=== PATIENT | male | born 1975 | race Two or more races ===

== ENCOUNTER 2023-06-10 04:34 | Emergency (ER) | payer MEDICAID, SELFPAY | END 2023-06-10 05:11 | disposition left against medical advice (07) | PROVIDERS: Emergency Provider Emergency Medicine | DX: M54.9 Dorsalgia, unspecified (principal) ==

== ENCOUNTER 2025-07-15 06:25 | Emergency (ER) | payer MEDICAID, SELFPAY ==
--- OUTSIDE RECORDS SUMMARY | 2019-09-22 22:46 | XMS_ITS | Continuity of Care Document ---
Author Organization [facility] Address [address] [place] [address] Phone Care Team Providers Care Welder Assistant Name Role Phone Nursing, Nursing Unavailable Unavailable [...] by oral route every week on Monday 68198 UNITS - Active Seroquel 50 mg tablet [...] needed as needed 50 MG - Active WAKU WAKU ?Touch Delica Lancets 33 gauge to check blood glucose levels twice daily E11. - Active Humulin R Regular U-100 Insulin 100 unit/mL injection solution inject (0.05UNITS/KG) by SQ route once per prescriber's instructions. Follow sliding scale. Max dose 45 units per day - Active give insulin if BS >200. 201-250-5 units, 251-300-8 units, 301-350 units-12 units, 110-418-29anr ts, 074-623-56jav ts, 596-862-30kqy ts..Call MD if BS <60 or >500 [...] Location Reason(s) For Visit Diagnoses Date Provider [facility], [address] [facility], [place], [address], [place] tel:[phone] [facility] No Information 9 Nursing Nursing. [address] [facility], [id number] [place], [place], [facility], . tel:[phone] [facility], [address] [place] [address], [facility], tel:[phone] [place] [address] Pediatric And Family No Information 9 Lars Riveraet. [address] [place] [address], [facility], . tel:[phone] [facility], [address] [place] [address], [facility], tel:[phone] [place] [address] Based medication refill (chief complaint) Encounter for screening for diabetes mellitusEssential (primary) hypertensionType 2 diabetes mellitus with hyperglycemiaBody mass index (BMI) 35.0-35.9, adult 9 Lars Riveraet. [address] [place] [address], [facility], . tel:[phone] [facility], [address] [place] [address], [facility], tel:[phone] [place] [address] Based medication refill (chief complaint) Encounter for screening for diabetes mellitusVitamin D deficiency, unspecifiedType 2 diabetes mellitus with hyperglycemiaChronic ischemic heart disease, unspecifiedPain in kneeBody mass index (BMI) 37.0-37.9, adult Jan- 9 Lars Riveraet. [address] [place] [address], [facility], [place]. tel:[phone] [facility], [address] [place] [address], [facility], [place] tel:[phone] [place] [address] Based SED (chief complaint) Other asthmaAnxiety disorder, unspecifiedVitamin D deficiency, unspecifiedType 2 diabetes mellitus with hyperglycemiaHearing lossBody mass index (BMI) 35.0-35.9, adult 8 Lars Riveraet. [address] [place] [address], [facility], [place]. tel:[phone] [facility], [address] [place] [address], [facility], [place] tel:[phone] [place] [address] multiple complaints (chief complaint) Encounter for screening for diabetes mellitusChronic ischemic heart disease, unspecifiedMajor depressive disorder, recurrent, unspecifiedType 2 diabetes mellitus with hyperglycemiaBody mass index (BMI) 35.0-35.9, adult 8 [facility]. [address] [place] [address], [facility], . tel:[phone] [facility], [address] [place] [address], [facility], tel:[phone] [place] [address] URI (chief complaint)l eft wrist pain (chief complaint) Encounter for screening for diabetes mellitusPain in left wristIschemic cardiac diseaseOMBody mass index (BMI) 35.0-35.9, adult [address], [facility], . tel:[phone] [facility], [address] [place] [address], [facility], tel:[phone] [place] [address] referral (chief complaint) Encounter for screening for diabetes mellitusLow back pain, unspecified back pain laterality, unspecified chronicity, unspecified whether sciatica presentBody mass index (BMI) 35.0-35.9, adult Sep- [address], [facility], . tel:[phone] [facility], [address] [place] [address], [facility], tel:[phone] [place] [address] restablish care (chief complaint) Acute transmural NM of ant wallIschemic cardiac diseaseHyperlipidemi a, unspecifiedType 2 diabetes mellitus with hyperglycemiaPain in left wristBody mass index (BMI) 36.0-36.9, adult Jul- [address], [facility], [place]. tel:[phone] [facility], [address] [place] [address], [facility], tel:[phone] [address] [place] [address] diabetes (chief complaint)c ough (chief complaint) Type 2 diabetes mellitus with hyperglycemiaEssenti al (primary) hypertensionHyperlip emia, mixedAcute bronchitis, unspecified organismBody mass index (BMI) 29.0-29.9, adult Mar-0 3-201 6 Tonny Pacheco. [address] [place], [place], [facility], . tel:[phone] [facility], [address] [place] [address], [facility], tel:[phone] [place] [address] Based blurred vision (chief complaint) Type 2 diabetes mellitus with hyperglycemiaAnxiety disorder, unspecified Dec-0 2-201 5 Lars Salazar. [address] [place] [address], [facility], [place]. tel:[phone] [facility], [address] [place] [address], [facility], tel:[phone] [place] [address] Based back pain (chief complaint) AnxietyHypertensionD M II Uncontrolled (+v58.67 If Insulin)Back symptoms Sep-2 2-201 5 Sousa Marie. [address] [place] [address], [facility], [place]. tel:[phone] [facility], [address] [place] [address], [facility], [place] tel:[phone] [facility] Based med refill (chief complaint) DM II Uncontrolled (+v58.67 If Insulin)Erectile dysfunctionHypertens ionAnxiety Sep-0 2-201 5 Lars Salazar. [address] [place] [address], [facility], [place]. tel:[phone] [facility], [address] [place] [address], [facility], [place] tel:[phone] [facility] Based recall letter (chief complaint) HyperglycemiaLIPOID METABOL DIS NOSDM II Uncontrolled (+v58.67 If Insulin) Mar-0 9-201 5 Leobardo Lenz. Emiliana Silva, [id number] [address] [place] [address], [address], [place]. tel:[phone] [facility], [address] [place] [address], [facility], tel:[phone] [place] [address] Based medication refill (chief complaint) DM II Uncontrolled (+v58.67 If Insulin)Otitis mediaCellulitis of nose 5 Leobardo Lenz. [address], [id number], [place], [address], . tel:[phone] [facility], [address] [place] [address], [facility], tel:[phone] [facility] (chief complaint) DM II Uncontrolled (+v58.67 If Insulin) 4 Raudel Mcknight. [address] [place], [id number] [address] [place] [address], [address], [place]. tel:[phone] [facility], [address] [place] [address], [facility], tel:[phone] [place] [address] Based diabetes (chief complaint) DM II Uncontrolled (+v58.67 If Insulin)Weakness generalizedHypertens ion Aug- 4 Leobardo Lenz. [address], [id number] [place], [address], . tel:[phone] [facility], [address] [place] [address], [facility], tel:[phone] [place] [address] diabetes (chief complaint) DM II Uncontrolled (+v58.67 If Insulin) 4 Sommer Mobley. [address] [facility], [id number] [place], [address], [place]. tel:[phone] [facility], [address] [place] [address], [facility], [place] tel:[phone] [facility] (chief complaint) DM II Uncontrolled (+v58.67 If Insulin) 4 Raudel Mcknight. [address] [place], [id number] [place], [place], [address], [place]. tel:[phone] [facility], [address] [place] [address], [address], [place] tel:[phone] [facility] diabetes (chief complaint) DM II Uncontrolled (+v58.67 If Insulin)Cellulitis Feb- 4 Antonio Sanchez. [address] [facility], [id number] [place], [place], [address], . [phone] [facility], [address] [place] [address], [address], [place] tel:[phone] [address] [place] [address] medication refills (chief complaint)d iabetes (chief complaint) DM II Controlled (+v58.67 If Insulin)LIPOID METABOL DIS NOSErectile dysfunction Dec- 3 Leobardo Lenz. Emiliana Silva, [id number] [place], [place], [address], [place]. [phone] [place] [address], [address] [place] [address], [address], [place] tel:[phone] [place] [address] aches (chief complaint) Joint painVitamin D deficiency Sep-3 3 Tristin Mendez. [address] Brittnee Mcgee, [id number] [address] [place] [address], [address], [place]. tel:[phone] [place] [address], [address] [place] [address], [address], [place] tel:[phone] [facility] (chief complaint) DM II Controlled (+v58.67 If Insulin) Jul- 3 Arnie Jaimes. [address] [place] [address], [id number] [place], [id number], [place]. tel:[phone] [facility], [address] [place] [address], [address], [place] tel:[phone] [facility] establish care (chief complaint) DiabetesLipid disorderGERD (gastroesophageal reflux disease)Mental disorder Sep- 3 Tristin Mendez. [address] Britt[address]e, [id number] [address] [place] [address], [address], . tel:[phone] Family History Family Member Type Diagnosis Age At Onset Mother Problem (finding) asthma Mother Problem (finding) Diabetes mellitus Father Problem (finding) Diabetes mellitus Payers Payer name Insurance type Covered alliance party ID Thelma petersen(s) [facility] CI [id number] Social History Type Description Quantity Date Captured [...] Referral Referred To: Frantz Tarango MD [address] [place], [address] [phone] Ordered: Referrals: Otolaryngology. Frantz Tarango MD. Evaluate and treat Appointment date/timeframe: 6 Months ordered Referral Ordered: [facility] -Physical Medicine and Rehabilitation (related to Pain in left wrist) ordered Referral Referred To: [address], [address] [phone] Ordered: Referrals: Physical Medicine and Rehabilitation. [facility]. Evaluate and treat Appointment date/timeframe: 6 Months ordered Referral Ordered: Jarrod Yeh MD -Pain Medicine (related to Lumbago NOS) ordered Referral Referred To: Jarrod Yeh MD [address] [place], [address] [phone] Ordered: Referrals: Pain Medicine. Jarrod Yeh MD. Evaluate and treat Appointment date/timeframe: 6 Months ordered Referral Ordered: [facility] -Orthopedic Surgery (related to Pain in left wrist) ordered Referral Referred To: [facility] [address] [place] [address], [address] [phone] Ordered: Referrals: Orthopedic Surgery. [facility]. Follow-up and treat Appointment date/timeframe: 6 Months ordered Referral Referred To: ([facility]) [facility] [address], [address] [phone] Ordered: Referrals: Cardiology. ([facility] . Follow-up and treat Appointment date/timeframe: 6 Months ordered Referral Ordered: Dental Exam (related to diabetes mellitus) ordered Referral Ordered: [facility] (related to diabetes mellitus) ordered Referral Ordered: [facility]. ordered Referral Ordered: [facility]. Diabetic Education. ordered Referral Ordered: [facility]. Diabetic Education. Podiatry. ordered Referral Ordered: Podiatry. ordered Referral Ordered: Ophthalmology. ordered Referral Ordered: Psychiatry. ordered Referral Ordered: Diabetic Education. ordered Future Order: Lab Order CBC w/di ff ([id number]), Ordered on: Ordered Future Order: Lab Order Hemoglob in A1c ([id number]), Ordered on: Ordered Future Order: Lab Order Lipid Pa herb ([id number]), Ordered on: Ordered Future Order: Lab Order Vitamin D, 25-Hydroxy ([id number]), Ordered on: Ordered Future Order: Lab Order UA w/taylor ro ([id number]), Ordered on: Ordered Future Order: Lab Order TSH ([id number]), Ordered on: Ordered Future Order: Lab Order Microalb /Creat Ratio, Randm Ur ([id number]), Ordered on: Ordered Future Order: Lab Order CMP ([id number]), Ordered on: Ordered Future Order: Radiology Order Kn ee X-ray; Complete (4+ views) ([id number]), Ordered on: Ordered Future Order: Lab Order CBC w/di ff ([id number]), Ordered on: Ordered Future Order: Lab Order CMP ([id number]), Ordered on: Ordered Future Order: Lab Order Hemoglob in A1c ([id number]), Ordered on: Ordered Future Order: Lab Order Lipid Pa herb ([id number]), Ordered on: Ordered Future Order: Lab Order Vitamin D, 25-Hydroxy ([id number]), Ordered on: Ordered Future Order: Lab Order TSH ([id number]), Ordered on: Ordered Future Order: Lab Order UA w/taylor ro ([id number]), Ordered on: Ordered Future Order: Lab Order CBC w/di ff ([id number]), Ordered on: Ordered Future Order: Lab Order CMP ([id number]), Ordered on: Ordered Future Order: Lab Order Chlamydi a/GC Amplification ([id number]), Ordered on: Ordered Future Order: Lab Order Hemoglob in A1c ([id number]), Ordered on: Ordered Future Order: Lab Order Hepatic Function Panel ([id number]), Ordered on: Ordered Future Order: Lab Order Hepatiti s Panel ([id number]), Ordered on: Ordered Future Order: Lab Order Lyme, We shen Blot, Serum ([id number]), Ordered on: Ordered Future Order: Lab Order Lipid Pa herb ([id number]), Ordered on: Ordered Future Order: Lab Order HIV 1/0/ 2 Ag/Ab With Reflex ([id number]), Ordered on: Ordered Future Order: Lab Order TSH ([id number]), Ordered on: Ordered Future Order: Lab Order Vitamin D, 25-Hydroxy ([id number]), Ordered on: Ordered Future Order: Lab Order Microalb /Creat Ratio, Randm Ur ([id number]), Ordered on: Ordered Future Order: Radiology Order Alisa mbar Spine X-ray (including sacrum) (Complete, with bending views) ([id number]), Ordered on: Ordered Future Order: Radiology Order Alisa mbar Spine X-ray (including sacrum) (Complete, with bending views) ([id number]), Ordered on: Ordered Future Order: Lab Order CBC w/di ff ([id number]), Ordered on: Ordered Future Order: Lab Order CMP ([id number]), Ordered on: Ordered Future Order: Lab Order Hemoglob in A1c ([id number]), Ordered on: Ordered Future Order: Lab Order Hepatiti s Panel ([id number]), Ordered on: Ordered Future Order: Lab Order Microalb /Creat Ratio, Rand Ur ([id number]), Ordered on: Ordered Future Order: Lab Order Lipid Pa herb ([id number]), Ordered on: Ordered Future Order: Lab Order Vitamin D, 25-Hydroxy ([id number]), Ordered on: Ordered Future Order: Lab Order TSH ([id number]), Ordered on: Ordered Future Order: Lab Order Thyroxin e (T4) ([id number]), Ordered on: Ordered Future Order: Lab Order UA w/taylor ro ([id number]), Ordered on: Ordered Future Order: Lab Order CMP ([id number]), Ordered on: Ordered Future Order: Lab Order CBC w/di ff ([id number]), Ordered on: Ordered Future Order: Lab Order Hemoglob in A1c ([id number]), Ordered on: Ordered Future Order: Lab Order Lipid Pa herb ([id number]), Ordered on: Ordered Future Order: Lab Order Microalb /Creat Ratio, Randm Ur ([id number]), Ordered on: Ordered Future Order: Lab Order UA w/taylor ro ([id number]), Ordered on: Ordered Future Order: Lab Order CMP ([id number]), Ordered on: Ordered Future Order: Lab Order Microalb /Creat Ratio, Randm Ur ([id number]), Ordered on: Ordered Future Order: Lab Order Lipid Pa herb ([id number]), Ordered on: Ordered Future Order: Lab Order UA w/taylor ro ([id number]), Ordered on: Ordered Future Order: Lab Order CBC w/di ff ([id number]), Ordered on: Ordered Future Order: Lab Order CBC w/di ff ([id number]), Ordered on: Ordered Future Order: Lab Order CMP ([id number]), Ordered on: Ordered Future Order: Lab Order HDL Chol esterol ([id number]), Ordered on: Ordered Future Order: Lab Order Hemoglob in A1c ([id number]), Ordered on: Ordered Future Order: Lab Order Hepatiti s Panel ([id number]), Ordered on: Ordered Future Order: Lab Order Hepatic Function Panel ([id number]), Ordered on: Ordered Future Order: Lab Order Lipid Pa herb ([id number]), Ordered on: Ordered Future Order: Lab Order Microalb /Creat Ratio, Randm Ur ([id number]), Ordered on: Ordered Future Order: Lab Order TSH ([id number]), Ordered on: Ordered Future Order: Lab Order Vitamin D, 25-Hydroxy ([id number]), Ordered on: Ordered Future Order: Lab Order RPR ([id number]), Ordered on: Ordered Future Order: Lab Order HIV 1/0/ 2 Ab Preliminary Test w/ ref to Western Blot Confirmation ([id number]), Ordered on: Ordered History Of Present Illness [...] was taking Seroquel while he was in halfway. He states Seroquel was effective in higher doses at that time. URI The patient pres ents with cough, earache, fatigue, fever, generalized weakness, headache, nausea and pharyngitis. left wrist pain Onset: 6 months ago. Location: left wrist. The pain is relieved by brace/splint. Associated symptoms include numbness and weakness. Hand Dominance: right. referral pt seen for refe rral restablish care Pt here states janeth tijerina has been in halfway and has had a STEMI since he was last seen here in the office. He requests to be reestablished and referrals to specialists. He has a defibulator implanted and has pain and numbness in his left forearm/wrist-recent xray was negative. He is wearing a supportive brace on his wrist during visit. diabetes Risk factors inc lude family history of diabetes mellitus, family history of hypertension, race (/ [place]) and male gender. Risk factors excluded are [...] has not been taking meds,in and out [facility] ,currently on ccdeztI6a at 13,RBS 353, says just filled meds yesturday and started taking it. cough Onset: 3 days ag o. The [...] pressure, sore throat, weight loss and wheezing. blurred vision pt is here for b [...] to office Related to Essential (primary) hypertension continue medications complete lab slip RTO to office Related to Type 2 diabetes mellitus with hyperglycemia xray slip givenRTO to discuss re sults Related to Pain in knee med refilllab slip g ivenRTO to discuss results Related to Vitamin D deficiency, unspecified follow up with cardiology Relate d to Chronic ischemic heart disease, unspecified med refill Related to Type 2 diabetes mellitus with hyperglycemia increased Glipizide to 10mg alfonso y Related to Type 2 diabetes mellitus with hyperglycemia refer to ENT Related to Heari ng loss increased Seroquel t o 50mg daily and 100mg at night Related to Anxiety disorder, unspecified med refill Related to Vitam in D deficiency, unspecified Nebulizer machine prescribedmed refill Related to Other asthma follow up with chet Culp to discuss results Related to Chronic ischemic heart disease, unspecified start SeroquelRTO in 4-6 weeks for follow up Related to Major depressive disorder, recurrent, unspecified med refill Related to Type 2 diabetes mellitus with hyperglycemia Augmentin, sudafed, medrol dose pack, tessalon perles and promethazine prescribed Related to OM continue to follow cardiology Re lated to Ischemic cardiac disease refer to physical therapy Relate d to Pain in left wrist xray negativerefer to orthopedic Related to Pain in left wrist history of NM with d efibulator placementRefer to cardiology Related to Acute transmural NM of ant wall refer to cardiologymed refill Re lated to Ischemic cardiac disease med refill Related to Hyper lipidemia, unspecified med refill Related to Type 2 [...] to Essential (primary) hypertension Take medications as ordered daily, do not skip doses. Related to Essential (primary) hypertension Avoid salty snacks, lunch meats, soups, and other high sodium foods. Related to Essential (primary) hypertension Low cholesterol, low fat, low sodium , no concentrated sweets, weight reduction diet. Related to Essential (primary) hypertension Excercise regularly, walking daily is a good start. Related to Hyperlipemia, mixed Low sodium diet Related to Damion pearsonl (primary) hypertension Diet and exercise discussed Rela anitha to Essential (primary) hypertension Avoid foods high in cholesterol. Related to Hyperlipemia, mixed Follow a low fat low cholesterol diet. Related to Hyperlipemia, mixed Take medications as Prescribed. Related to Type 2 diabetes mellitus with hyperglycemia Monitor Fasting blood sugar alfonso galeano. Related to Type 2 diabetes mellitus with hyperglycemia Please keep a log of you blood sugars and bring with you at each visit. Related to Type 2 diabetes mellitus with hyperglycemia 1800 ADA calorie diet Related to Type 2 diabetes mellitus with hyperglycemia Follow up with our Josey kaur educator, Cici Noel. Related to Type 2 diabetes mellitus with hyperglycemia Avoid sweetened drin ks like Soda, ice tea, and sugary sports drinks. Related to Type 2 diabetes mellitus with hyperglycemia Make an appointment for an eye e william. Related to Type 2 diabetes mellitus with hyperglycemia Increase intake of v egetables and fresh fruits. Related to Type 2 diabetes mellitus with hyperglycemia Supportive Care Related to Acute bronchitis, unspecified organism Take medications as prescribed, do not skip doses. Related to Acute bronchitis, unspecified organism Force Fluids Related to Acute bronchitis, unspecified organism Eat leaner cuts of r ed meat, and replace red meat with fish and chicken. Related to Hyperlipemia, mixed Diet and exercise discussed Rela anitha to Hyperlipemia, mixed Weight loss recommended Related to Hyperlipemia, mixed Take cholesterol med ication at night before bed. Related to Hyperlipemia, mixed Take antibiotics as prescribed, take all medications, do not stop them even if you are feeling better. Related to Acute bronchitis, unspecified organism blood [...] to Back symptoms increased Glyburide to 15mg alfonos y Related to DM II Uncontrolled (+v58.67 [...] or fu Related to Cellulitis of nose abx as prescribed Related to Lani tis media refills sentReinforc ed need for complaince and education for associated damage of uncontrolled DMGo to ED for management of lgbascnxvacbr43 untis regular insulin given now left upper armget [facility] office[facility] with podiatry and opthmaology as discussed Related to DM II Uncontrolled (+[id number] If Insulin) Exercise for 30 patricia alex, 5x weekly as tolerated Exercise for 30 patricia alex, 5x weekly as tolerated Order consults Related to Joint pain Call if symptoms persist Related to Joint pain Order labs/studies Related to Di abetes Review medication side effects R elated to Diabetes Prescribe medications Related to Diabetes Order consults Related to Diabe alex Exercise for 30 patricia alex, 5x weekly as tolerated Assessments Type Assessment Date No Information
--- NOTE | 2025-07-15 | ECG_ITS ---
Test Reason : chest tightness, dizziness, malaise Blood Pressure : */* mmHG Vent. Rate : 79 BPM Atrial Rate : 79 BPM P-R Int : 148 ms QRS Dur : 98 ms QT Int : 398 ms P-R-T Axes : 52 -33 62 degrees QTcB Int : 456 ms Normal sinus rhythm Possible Left atrial enlargement Left axis deviation Minimal voltage criteria for LVH, may be normal variant ( Timmy product ) Septal infarct , age undetermined Possible Lateral infarct , age undetermined Abnormal ECG No previous ECGs available Referred By: Allyssa Sotelo Electronically Signed By: Kulwant Dow
--- NOTE | ~2025-07-15 | XR_ITS ---
EXAMINATION: XR CHEST CLINICAL INFORMATION: HEAD/sob COMPARISON: None available. TECHNIQUE: 2 views of the chest were obtained. FINDINGS: No consolidation, pleural effusion or pneumothorax. No hyperinflation. Cardiomediastinal silhouette size is normal. There is a left-sided pacemaker with 2 intact electrode leads in the right heart chambers. Multilevel thoracic spondylosis. XR/XR chest 2V IMPRESSION: No acute airspace disease or overt pulmonary edema. Electronically signed by: Edmundo Garcia MD 07/15/2025 08:01 AM EDT
[2025-07-15 06:32] VITALS: BP 107/67; PULSE 96; RESP 18; TEMP 36.8; O2SAT 98; BMI 28.7
--- NOTE | 2025-07-15 06:42 | ED.DIZZY ---
HPI - Dizziness General Chief Complaint: Dizziness Stated Complaint: Dizziness Time Seen by Provider: 07/15/25 06:38 Source: patient and old records reviewed Mode of arrival: ambulatory Limitations: no limitations History of Present Illness ED Provider: WILLARD NARVAEZ Narrative: 50 yo male with PMH of DM, CAD s/p 4 stents LAD and RCA, cardiomyopathy with ICD ?last EF 25%, HTN, HLD who states he was admitted to [facility] about 1 month ago for issues trying to get medications as well as HEAD and dizzines/chest tightness with walking. He is living in [facility]. He states he has no medications again and that he is in [facility] now at [place] [address] in [place]. His issues are that his medicaid ran out and he needs to apply again. He comes in today with overall not feeling well since he left [facility] with his eyes being tired, dizziness when walking, shortness of breath and chest tightness with ambulation. He states he is very tired. Onset (ago): month(s) (1) Timing: gradual onset Severity: moderate Description: lightheadedness Context: change in body position History of similar symptoms: Yes Exacerbating factors: movement/ambulation Relieving factors: remaining still Associated symptoms: chest pain, shortness of breath and weakness Related Data Previous Rx's ?Medication ?Instructions ?Recorded aspirin 81 mg tablet 81 mg PO DAILY #30 tabs 07/15/25 atorvastatin 40 mg tablet (Lipitor) 40 mg PO DAILY #30 tabs 07/15/25 carvedilol 3.125 mg tablet 3.125 mg PO BID #60 tabs 07/15/25 clopidogrel 75 mg tablet (Plavix) 75 mg PO DAILY #30 tabs 07/15/25 dapagliflozin propanediol 10 mg 10 mg PO DAILY #30 tabs 07/15/25 tablet (Farxiga) dulaglutide 1.5 mg/0.5 mL 1.5 mg (0.5 mL) subcut QWEEK #2 mL 07/15/25 subcutaneous pen injector ([facility]) ezetimibe 10 mg tablet 10 mg PO DAILY #30 tabs 07/15/25 fluoxetine 10 mg capsule 10 mg PO DAILY #30 caps 07/15/25 gabapentin 100 mg capsule 100 mg PO BEDTIME #30 caps 07/15/25 glipizide 5 mg tablet 5 mg PO BID #60 tabs 07/15/25 insulin glargine 100 unit/mL (3 60 unit (0.6 mL) subcut QPM #15 mL 07/15/25 mL) subcutaneous pen (Lantus Solostar U-100 Insulin) insulin lispro 200 unit/mL (3 mL) 1 sliding scale dose subcut 07/15/25 subcutaneous pen USEASDIRECTD #6 mL lisinopril 2.5 mg tablet 2.5 mg PO DAILY #30 tabs 07/15/25 metformin 500 mg tablet 500 mg PO BID #60 tabs 07/15/25 quetiapine 100 mg tablet (Seroquel) 100 mg PO BEDTIME #30 tabs 07/15/25 sacubitril 49 mg-valsartan 51 mg 1 tab PO BID #60 tabs 07/15/25 tablet (Entresto) valacyclovir 1 gram tablet 1,000 mg PO DAILY #30 tabs 07/15/25 Allergies Allergy/AdvReac Type Severity Reaction Status Date / Time No Known Allergies Allergy Verified 07/15/25 06:36 Review of Systems Review of Systems: Constitutional : No Fever, No Chills ENT/Mouth : No sore throat, No Rhinorrhea, No Swallowing Difficulty Eyes: No Eye Pain, No Swelling, No Redness Cardiovascular : pos Chest Pain, positive SOB, No Orthopnea, no Edema Respiratory : No Cough, No Sputum, No Wheezing, positive dyspnea Gastrointestinal : No Nausea, No Vomiting, No Diarrhea, No abdominal Pain, No Hematochezia, No Melena Genitourinary : No Dysuria, No Urinary Frequency, No Hematuria Musculoskeletal : No joint pain, No Myalgias Skin : No Skin Lesions, No rash Neuro : pos Weakness, No Numbness, pos Dizziness, No Headache All other systems reviewed and are negative [facility] Past Medical History Attestation statement: The following information was validated with the patient. Source: old records reviewed Medical History Cardiomyopathy CAD (coronary artery disease) HLD (hyperlipidemia) HTN (hypertension) Social History Social History (Updated 07/15/25 @ 07:02 by Allyssa Sotelo DO) Patient Tobacco Use Status: Former Tobacco user Advance Directives: No Advance Directives Information Provided: No Physical Exam Vital Signs: Vital Signs: Last Vital Signs Temp 97.7 F 07/15/25 09:30 Pulse 90 07/15/25 09:39 Resp 14 07/15/25 09:30 BP 104/67 07/15/25 09:39 Pulse Ox 97 07/15/25 09:30 O2 Del Method Room Air 07/15/25 09:30 BMI result Body Mass Index 28.7 Appearance: Alert. Oriented X3. No acute distress. Eyes: Pupils equal, round and reactive to light. ENT: Pharynx normal. Neck: Normal inspection. Neck supple. CVS: Normal heart rate and rhythm. Pulses normal. Respiratory: No respiratory distress. Breath sounds normal. Abdomen: Soft and nontender. Skin: Skin warm and dry. Normal skin color. Extremities: No lower extremity edema. Neuro: Oriented X 3. No motor deficit. No sensory deficit. CN2-12 intact Medications Administered Discontinued Medications Generic Name Dose Route Start Last Admin Trade Name Freq PRN Reason Stop Dose Admin Insulin Human Lispro 5 unit 07/15/25 07:39 07/15/25 07:54 Insulin Lispro 100 Unit/Ml 3 Ml Vial SUBCUT 07/15/25 07:40 5 unit ONCE ONE Administration Medical Decision Making Medical Decision Making MDM Narrative: 50 yo male with PMH of DM, CAD s/p 4 stents LAD and RCA, cardiomyopathy with ICD, HTN, HLD now here with no meds other than metformin but 1 month of intermittent HEAD and chest pain on exertion now with weakness and dizziness. At this time basic labs, EKG, ortho VS, trop, BNP. Given 1 month of symptoms and no signs of DVT doubt VTE. Possible CHF, hyperglycemia, anemia, JEFFREY, orthostatic hypotension. he was admitted to [facility] for hyperglycemia but no DKA and sent out on meds though unable to fill most other than metformin Differential Diagnosis Differential Diagnoses: The differential diagnosis associated with the presentation includes anemia, hyperglycemia, CHF, poor social support, orthostatics Admission/Observation Consideration of admission/observation: Escalation of care including admission/observation considered negative work up stable for DC will fill all medications at our pharmacy he does have [facility] Consult Healthcare Provider Management of the patient was discussed 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 no gap not in DKA BNP and no rise in troponin 07/15/25 07:06 07/15/25 07:03 Labs: Lab Results 07/15/25 07/15/25 07/15/25 Range/Units 07:03 07:04 07:06 WBC 10.1 (4.8-10.8) X10*3/uL RBC 4.83 (4.60-5.80) X10*6/uL Hgb 15.0 (14.0-18.0) g/dl Hct 40.7 L (42.0-52.0) % MCV 84.3 (80.0-98.0) fL MCH 31.1 (27.0-33.0) pg MCHC 36.9 H (31.0-36.0) g/dl RDW 12.1 (11.0-16.0) % Plt Count 249 (160-400) X10*3/uL MPV 10.1 (9.4-12.4) fL Absolute Nucleated RBC 0.000 (0.0-0.012) X10*3/uL Nucleated RBC % (auto) 0.0 (0.0-0.2) /100WBC VBG pH (7.32-7.43) VBG pCO2 mmHg VBG pO2 mmHg VBG HCO3 (22-26) mmol/L VBG O2 Saturation % VBG Base Excess mmol/L Sodium 134 L (135-145) mmol/L Potassium 4.0 (3.3-5.1) mmol/L Chloride 101 (96-108) mmol/L Carbon Dioxide 22 (22-29) mmol/L Anion Gap 15 (12-20) BUN 26 H (9-16) mg/dL Creatinine 0.95 (0.5-1.4) mg/dL Estim Creat Clear Calc 101.0 Estimated GFR > 60 POC Glucose (60-115) mg/dL Random Glucose 417 H* (60-115) mg/dL Calcium 9.3 (8.4-10.2) mg/dL Magnesium 2.0 (1.6-2.6) mg/dL Total Bilirubin 1.0 (0.0-1.0) mg/dL AST 24 (5-37) U/L ALT 40 (0-40) U/L Alkaline Phosphatase 87 (39-117) U/L Troponin I High Sens 23.3 (<3.5-35.0) ng/L B-Natriuretic Peptide 75 (<100) pg/mL Total Protein 7.2 (6.5-8.0) g/dL Albumin 4.6 (3.5-5.0) g/dL Beta-Hydroxybutyrate 1.65 H (0.02-0.27) mmol/L 07/15/25 07/15/25 07/15/25 Range/Units 07:11 07:18 09:23 WBC (4.8-10.8) X10*3/uL RBC (4.60-5.80) X10*6/uL Hgb (14.0-18.0) g/dl Hct (42.0-52.0) % MCV (80.0-98.0) fL MCH (27.0-33.0) pg MCHC (31.0-36.0) g/dl RDW (11.0-16.0) % Plt Count (160-400) X10*3/uL MPV (9.4-12.4) fL Absolute Nucleated RBC (0.0-0.012) X10*3/uL Nucleated RBC % (auto) (0.0-0.2) /100WBC VBG pH 7.40 (7.32-7.43) VBG pCO2 34 mmHg VBG pO2 252 mmHg VBG HCO3 21 L (22-26) mmol/L VBG O2 Saturation 99.0 % VBG Base Excess -2.1 mmol/L Sodium (135-145) mmol/L Potassium (3.3-5.1) mmol/L Chloride (96-108) mmol/L Carbon Dioxide (22-29) mmol/L Anion Gap (12-20) BUN (9-16) mg/dL Creatinine (0.5-1.4) mg/dL Estim Creat Clear Calc Estimated GFR POC Glucose 372 H* (60-115) mg/dL Random Glucose (60-115) mg/dL Calcium (8.4-10.2) mg/dL Magnesium (1.6-2.6) mg/dL Total Bilirubin (0.0-1.0) mg/dL AST (5-37) U/L ALT (0-40) U/L Alkaline Phosphatase (39-117) U/L Troponin I High Sens 21.2 (<3.5-35.0) ng/L B-Natriuretic Peptide (<100) pg/mL Total Protein (6.5-8.0) g/dL Albumin (3.5-5.0) g/dL Beta-Hydroxybutyrate (0.02-0.27) mmol/L 07/15/25 Range/Units 10:16 WBC (4.8-10.8) X10*3/uL RBC (4.60-5.80) X10*6/uL Hgb (14.0-18.0) g/dl Hct (42.0-52.0) % MCV (80.0-98.0) fL MCH (27.0-33.0) pg MCHC (31.0-36.0) g/dl RDW (11.0-16.0) % Plt Count (160-400) X10*3/uL MPV (9.4-12.4) fL Absolute Nucleated RBC (0.0-0.012) X10*3/uL Nucleated RBC % (auto) (0.0-0.2) /100WBC VBG pH (7.32-7.43) VBG pCO2 mmHg VBG pO2 mmHg VBG HCO3 (22-26) mmol/L VBG O2 Saturation % VBG Base Excess mmol/L Sodium (135-145) mmol/L Potassium (3.3-5.1) mmol/L Chloride (96-108) mmol/L Carbon Dioxide (22-29) mmol/L Anion Gap (12-20) BUN (9-16) mg/dL Creatinine (0.5-1.4) mg/dL Estim Creat Clear Calc Estimated GFR POC Glucose 217 H (60-115) mg/dL Random Glucose (60-115) mg/dL Calcium (8.4-10.2) mg/dL Magnesium (1.6-2.6) mg/dL Total Bilirubin (0.0-1.0) mg/dL AST (5-37) U/L ALT (0-40) U/L Alkaline Phosphatase (39-117) U/L Troponin I High Sens (<3.5-35.0) ng/L B-Natriuretic Peptide (<100) pg/mL Total Protein (6.5-8.0) g/dL Albumin (3.5-5.0) g/dL Beta-Hydroxybutyrate (0.02-0.27) mmol/L Independent Interpretation I performed an independent interpretation of an: EKG and Plain X-Ray (no pulm edema) Interpretation: Rate: 79 Rhythm: NSR [place]: left, LVH Normal P waves. Normal MICH. Normal QRS complex. ST T wave : flat t waves I and aVL, no WILLIAMS qTC: 456 prior studies: no prior The study has been interpreted contemporaneously by me. . Radiology Impression Discussion of test interpretation with radiology: I have reviewed the radiologist's reading. External Record Review External record reviewed: Outpatient record Prescription Management I considered prescription management with: Other Social Determinants Patient?s care significantly limited by Social Determinants of Health including: Low income, Problems related to primary support group and Unemployment Discharge Plan Discharge Clinical Impression: HEAD (dyspnea on exertion), Atypical chest pain, Acute hyperglycemia Patient Disposition: Home, Self-Care Instructions: Chest Pain (ED), Dyspnea (ED), Diabetic Hyperglycemia (ED) Additional Instructions: repeat labs normal, blood sugar down to 200s please follow up with your primary care doctor as soon as possible rest and take all of your medications Prescriptions: New insulin glargine [Lantus Solostar U-100 Insulin] 100 unit/mL (3 mL) insulin pen 60 unit subcut QPM Qty: 15 1RF atorvastatin [Lipitor] 40 mg tablet 40 mg PO DAILY Qty: 30 0RF metformin 500 mg tablet 500 mg PO BID Qty: 60 0RF valacyclovir 1 gram tablet 1,000 mg PO DAILY Qty: 30 0RF clopidogrel [Plavix] 75 mg tablet 75 mg PO DAILY Qty: 30 0RF quetiapine [Seroquel] 100 mg tablet 100 mg PO BEDTIME Qty: 30 0RF carvedilol 3.125 mg tablet 3.125 mg PO BID Qty: 60 0RF Rx Instructions: must administer with a meal/food fluoxetine 10 mg capsule 10 mg PO DAILY Qty: 30 0RF aspirin 81 mg tablet 81 mg PO DAILY Qty: 30 0RF gabapentin 100 mg capsule 100 mg PO BEDTIME Qty: 30 0RF lisinopril 2.5 mg tablet 2.5 mg PO DAILY Qty: 30 0RF glipizide 5 mg tablet 5 mg PO BID Qty: 60 0RF ezetimibe 10 mg tablet 10 mg PO DAILY Qty: 30 0RF dapagliflozin propanediol [Farxiga] 10 mg tablet 10 mg PO DAILY Qty: 30 0RF Trulicity 1.5 mg/0.5 mL pen injector 1.5 mg subcut QWEEK Qty: 2 0RF insulin lispro 200 unit/mL (3 mL) insulin pen 1 sliding scale dose subcut USEASDIRECTD Qty: 6 0RF Rx Instructions: inject 4 to 14 units three times a day before meals sliding scale sacubitril-valsartan [Entresto] 49-51 mg tablet 1 tab PO BID Qty: 60 0RF Print Language: Czech
[2025-07-15 07:15] LABS: VBG HCO3 21 mmol/L (22-26); VBG O2 % Saturation 99.0 %
[2025-07-15 07:18] LABS: Hematocrit 40.7 % (42.0-52.0); Hemoglobin 15.0 g/dl (14.0-18.0); Mean Corpuscular HGB Conc 36.9 g/dl (31.0-36.0); Mean Corpuscular Hemoglobin 31.1 pg (27.0-33.0); Mean Corpuscular Volume 84.3 fL (80.0-98.0); NRBC Abs Auto 0.000 X10*3/uL (0.0-0.012); NRBC Pct Auto 0.0 /100WBC (0.0-0.2); Platelet Count 249 X10*3/uL (160-400); Red Blood Count 4.83 X10*6/uL (4.60-5.80); White Blood Count 10.1 X10*3/uL (4.8-10.8)
[2025-07-15 07:20] LABS: Venous Blood Gas Refer to POC result
[2025-07-15 07:21] LABS: Glucose, Whole Blood 372 mg/dL (60-115)
[2025-07-15 07:40] LABS: Alanine Aminotransferase 40 U/L (0-40); Albumin Level 4.6 g/dL (3.5-5.0); Alkaline Phosphatase 87 U/L (39-117); Anion Gap 15 (12-20); Aspartate Amino Transferase 24 U/L (5-37); Blood Urea Nitrogen 26 mg/dL (9-16); Calcium 9.3 mg/dL (8.4-10.2); Carbon Dioxide 22 mmol/L (22-29); Chloride 101 mmol/L (96-108); Creatinine Clr Calc Pharmacy 101.0; Estimated Glomerular Filt Rate > 60; Magnesium 2.0 mg/dL (1.6-2.6); Potassium 4.0 mmol/L (3.3-5.1); Sodium 134 mmol/L (135-145); Total Protein 7.2 g/dL (6.5-8.0)
[2025-07-15 07:43] LABS: B Type Natriuretic Peptide 75 pg/mL (<100)
[2025-07-15 07:45] LABS: Troponin-I High Sensitivity 23.3 ng/L (<3.5-35.0)
--- OUTSIDE RECORDS SUMMARY | 2025-07-15 07:46 | XMS_ITS | Clinical Summary ---
Author Organization [facility] Address [address] [place] [address] Care Team Providers Care Ball Racker Name Role Phone Alyson England PA-C Primary Care Provider Source Comments PLEASE NOTE, if this patient is a minor, it may be UNLAWFUL to discuss sensitive information that is contained in these records (such as FAMILY PLANNING, MENTAL HEALTH or SUBSTANCE ABUSE) with the minor patient's parent or other person without the patient's specific authorization.[facility] Allergies No known active allergies Medications omeprazole (PRILOSEC) [address] capsule Take 1 Capsule by mouth every morning before breakfast 90 Capsule 1 06/15/20 23 Active acetaminophen (TYLENOL) 325 mg tablet Take 2 Tablets by mouth every 6 (six) hours as needed for pain 30 Tablet 08/29/20 23 Active albuterol (PROVENTIL) 2.5 mg /3 mL (0.083 %) nebulizer solution Take 3 mL by nebulization every 4 (four) hours as needed for wheezing 1 Each 2 08/29/20 23 Active sildenafiL (VIAGRA) 100 mg tabletIndications :Erectile dysfunction, unspecified erectile dysfunction type Take 1 Tablet by mouth once daily as needed for erectile dysfunction 10 Tablet 08/29/20 23 Active cyclobenzaprine (FLEXERIL) 5 mg tablet Take 2 Tablets by mouth 3 (three) times daily as needed for muscle spasms 90 Tablet 1 08/29/20 23 Active gauze bandage 4 X 4 dressing Apply topically as needed for wound care 24 Each 1 10/02/20 23 Active flash glucose scanning reader (Selerity AMANDA 2 READER) miscIndications:T ype 2 diabetes mellitus without complication, with long-term current use of insulin ([facility]) 1 Box by miscellaneous route 3 (three) times daily 1 Each 1 10/30/20 23 Active blood sugar diagnostic strips Use to test blood glucose at least 3 times daily.(Freestyle Precision Dutch) 100 Each 12/06/19 24 Active lancets (FREESTYLE LANCETS) 28 gauge Use to check blood sugar up to 3 times daily (Freestyle Lancets) 100 Each 12/06/19 24 Active alcohol swabs Use to clean finger to test blood sugar up to 3 times daily. 100 Each 12/06/19 [address] tablet TAKE 1 TABLET BY MOUTH EVERY DAY 90 Tablet 1 12/22/19 24 Active pen needle, diabetic (BD ULTRA-FINE SHORT PEN NEEDLE) 31 gauge x 03/28 ndleIndications:T ype 2 diabetes mellitus without complication, with long-term current use of insulin ([facility]) USE TO INJECT INSULIN 4 TIMES DAILY E11.9 200 Each 3 05/03/20 24 Active carvediloL (COREG) 3.125 mg tablet TAKE 1 TABLET BY MOUTH TWICE A DAY WITH FOOD 180 Tablet 1 06/23/20 24 Active QUEtiapine (SEROQUEL) 200 mg tabletIndications :Bipolar 2 disorder, major depressive episode ([facility]),Moderate episode of recurrent major depressive disorder ([facility]) Take 1 Tablet by mouth nightly at bedtime for 90 days 30 Tablet 2 07/17/20 24 Active flash glucose sensor (FREESTYLE AMANDA 2 SENSOR) kit Apply sensor to back of upper arm and change every 14 days. Use to test blood glucose at least 3 times daily. 2 Kit 08/13/20 24 Active DULoxetine (CYMBALTA) [address] capsuleIndication s:Moderate episode of recurrent major depressive disorder ([facility]),Anxiety TAKE ONE CAPSULE BY MOUTH EVERY DAY FOR 180 DAYS 30 Capsule 08/30/20 24 Active ENTRESTO 49-51 mg tabIndications:AI CD (automatic cardioverter/defi brillator) present,Heart failure, unspecified HF chronicity, unspecified heart failure type ([facility]) TAKE ONE TABLET BY MOUTH TWICE DAILY 60 Tablet 2 09/02/20 24 Active metFORMIN XR (GLUCOPHAGE-XR) 500 mg 24 hr tabletIndications :Type 2 diabetes mellitus with hyperglycemia, with long-term current use of insulin ([facility]) Take 1 Tablet by mouth 2 (two) times daily with a meal 180 Tablet 1 09/03/20 24 Active docusate sodium (COLACE) 100 mg capsuleIndication s:Constipation, unspecified constipation type TAKE 1 CAPSULE BY MOUTH TWICE A DAY 180 Capsule 09/05/20 24 Active atorvastatin (LIPITOR) 40 mg tablet TAKE ONE TABLET BY MOUTH EVERY DAY 90 Tablet 1 09/15/20 24 Active dapagliflozin propanediol (FARXIGA) 10 mg tab Take 1 Tablet by mouth daily. 30 Tablet 5 11/16/19 25 Active insulin lispro 100 unit/mL injection penIndications:Ty pe 2 diabetes mellitus without complication, with long-term current use of insulin ([facility]) Use Lispro 15 units with breakfast and lunch and 20 units with dinner 15 mL 3 11/16/19 25 Active dulaglutide (TRULICITY) 3 mg/0.5 mL pen injectorIndicatio ns:Type 2 diabetes mellitus with hyperglycemia, with long-term current use of insulin ([facility]) Inject 3 mg into the skin once a week 2 mL 2 11/18/19 25 Active clopidogreL (PLAVIX) 75 mg tablet TAKE ONE TABLET BY MOUTH everyday 90 Tablet 11/22/19 25 Active glipiZIDE (GLUCOTROL) 10 mg tabletIndications :Type 2 diabetes mellitus with hyperglycemia, with long-term current use of insulin ([facility]) TAKE ONE TABLET BY MOUTH ONCE DAILY 90 Tablet 11/22/19 25 Active gabapentin (NEURONTIN) 100 mg capsuleIndication s:Left lumbar radiculopathy TAKE ONE CAPSULE BY MOUTH THREE TIMES DAILY 90 Capsule 12/06/19 25 Active ezetimibe (ZETIA) 10 mg tablet TAKE ONE TABLET BY MOUTH EVERY DAY 90 Tablet 1 01/07/20 25 Active insulin glargine (LANTUS SOLOSTAR U-100 INSULIN) 100 unit/mL (3 mL) penIndications:Ty pe 2 diabetes mellitus with hyperglycemia, with long-term current use of insulin ([facility]) Inject 65 Units into the skin every morning for 180 days 15 mL 3 01/06/20 25 Active Active Problems Problem Noted Date Diagnosed Date Tobacco use disorder 07/05/2024 PTSD (post-traumatic stress disorder) 11/23/2023 Bipolar 2 disorder, major de pressive episode ([facility]) 11/23/2023 Class 1 obesity due to exces s calories with serious comorbidity and body mass index (BMI) of 31.0 to 31.9 in adult 10/30/2023 Coronary artery disease of n ative artery of [place] heart with stable angina pectoris ([facility]) 10/02/2023 Overview (10/02/2023): S/p KS 2016, subsequent PCI x 4 (on 4 different occasions) Hypercholesterolemia 10/02/2023 Essential hypertension 10/02/2023 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, with long-term current use of insulin ([facility]) 10/02/2023 Ischemic cardiomyopathy 10/02/2023 Overview (10/02/2023): S/p ICD 2018 Immunizations Immunization Administration Dates Next Due Flu, Preservative Free 10/02/2023 Hep B,adult,adjuvanted (HEPLISAV) 01/06/2025, TDAP 10/02/2023 ZOSTER VACCINE, RECOMBINANT (SHINGRIX) ,07/05/2024 Social History Tobacco Use Types Packs/Day Years Used Date Smoking Tobacco: Some Days Cigarettes Passive Smoke Exposure: Never Smokeless Tobacco: Never Tobacco Cessation:Ready to Q uit: Not Asked; Counseling Given: Yes Alcohol Use Standard Drinks/Week Comments Not Currently 0 (1 standard drink = 0.6 oz pur e alcohol) Social Connections Answer Date Recorded Connectedness 0 05/31/2023 Financial Resource Strain Answer Date R ecorded Financial Resource Strain 0 2022 Stress Answer Date Recorded Stress 0 05/31/2023 Physical Activity Answer Date Recorded Physical Activity 0 05/31/2023 Food Insecurity Answer Date Recorded Food 0 05/31/2023 Transportation Needs Answer Date Record ed Transportation 0 05/31/2023 Housing Stability Answer Date Recorded Housing 0 05/31/2023 Safety and Environment Answer Date Иван rded Safety 0 05/31/2023 Utilities Answer Date Recorded Utilities 0 05/31/2023 Employment Answer Date Recorded Stress 0 05/31/2023 Sex and Gender Information Value Date Recorded Sex Assigned at Male 05/31/2023 6:21 AM PDT Legal Sex Male 6:20 AM PDT Gender Identity Male 05/31/2023 6:21 AM PDT Sexual Orientation Straight 05/31/2023 6: 21 AM PDT Last Filed Vital Signs Vital Sign Reading Time Taken Comments Blood Pressure 110/80 01/06/2025 1:46 PM EST Pulse 89 01/06/2025 1:46 PM EST Temperature 36.8 C (98.2 F) 01/06/2025 1:46 PM EST Respiratory Rate 16 01/06/2025 1:46 PM EST Oxygen Saturation 97% 01/06/2025 1:46 PM EST Inhaled Oxygen Concentration - - Weight 102.6 kg (226 lb 1.6 oz) 01/06/2025 1:46 PM EST Height 175.3 cm (5' 9.02 ) 01/06/2025 1:46 PM ES T Body Mass Index 33.37 01/06/2025 1:46 PM EST Plan of Treatment Health Maintenance Due Date Last Done Comments Diabetes Foot Exam 1974 Imm-Pneumococcal 50+ (1 of 2 - PCV) 1993 CT Colonography 2019 Colonoscopy 2019 Colorectal Cancer Screening 2019 FIT/gFOBT 2019 Fecal DNA 2019 Flexible Sigmoidoscopy 2019 Ner-PBDLI-05 ( season) 2024 Dental Prophy 08/02/2024 01/29/2024 Anxiety Screening 10/09/2024 10/09/2023 Dental BW 01/30/2025 01/29/2024 Dental Examination 01/30/2025 01/29/2024 Dental Perio Charting 01/30/2025 01/29/2024 Depression Monitoring 02/13/2025 11/15/2024 , 07/05/2024, 02/23/2024, Additional history exists Hemoglobin A1c 02/13/2025 11/15/2024, 07/0 12/2023, 01/29/2024, Additional history exists Urine Albumin Creatinine Rat io Screening 03/26/2025 03/26/2024 Annual Wellness (Adult): Ind icated (All Coverage) 07/05/2025 07/05/2024 Lipid Screening 07/05/2025 07/05/2024, 10/02/2023 Serum Creatinine 07/05/2025 07/05/2024, 10/02/2023 Retinopathy Screening 07/09/2025 07/09/2024, 024 Imm-Influenza (#1) 2025 10/02/2023 Tobacco Cessation Counseling (#1) 01/06/2026 024, 10/30/2023 Dental FMX/Pano 01/30/2029 01/29/2024 Imm-DTaP/Tdap/Td (2 - Td or Tdap) 10/02/2033 023 HIV Screening Completed 10/02/2023 Hepatitis C Screening Completed 10/02/2023 Alcohol and Drug Screen Completed 01/06/20, 12/11/2023, 05/31/2023 Imm-Hepatitis B Completed 01/06/2025, 07/05/2024 Imm-Zoster, Recombinant Completed 01/06/2025, 07/05 Procedures Procedure Name Priority Date/Time Associated Diagnosis Comments GLYCOSYLATED (A1C) DEVICE (CLIA WAIVED) POCT Routine 11/15/2024 2:50 PM EST Type 2 diabetes mellitus with 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, with long-term current use of insulin ([facility]) EYE EXAM 07/09/2024 3:00 AM EDT COMPREHENSIVE METABOLIC PANEL Routine 07/05/2024 4:53 PM EDT Annual physical exam Type 2 diabetes mellitus with hyperglycemia, with long-term current use of insulin ([facility]) Essential hypertension LIPIDS W RFLX TO DIRECT LDL Routine 07/05/2024 4:53 PM EDT Annual physical exam Type 2 diabetes mellitus with hyperglycemia, with long-term current use of insulin ([facility]) Essential hypertension MICROALBUMIN/CREATIN INE RATIO, URINE, RANDOM Routine 03/26/2024 3:55 PM EDT Type 2 diabetes mellitus with hyperglycemia, with long-term current use of insulin ([facility]) INTRAORAL - COMP SERIES OF RADIOGRAPHIC IMAGES Routine 01/29/2024 11:00 AM EDT Chronic gingivitis, plaque induced Dental caries on smooth surface penetrating into dentin Encounter for dental examination and cleaning without abnormal findings PROPHYLAXIS - ADULT Routine 01/29/2024 1 1:00 AM EDT Chronic gingivitis, plaque induced Dental caries on smooth surface penetrating into dentin Encounter for dental examination and cleaning without abnormal findings COMP ORAL EVALUATION - NEW/ESTABLISHED PATIENT Routine 01/29/2024 11:00 AM EDT Chronic gingivitis, plaque induced Dental caries on smooth surface penetrating into dentin Encounter for dental examination and cleaning without abnormal findings HIV 1/2 AG & AB W/RFLX (4TH GEN) Routine 10/02/2023 3:10 PM EST Exposure to potential infection HEPATITIS C AB W/RFLX HCV RNA, QT, RT PCR Routine 10/02/2023 3:10 PM EST Exposure to potential infection from Last 3 Months or Most Recently Relevant to Health Maintenance Results * (ABNORMAL) GLYCOSYLATED (A1C) DEVICE (CLIA WAIVED) POCT (11/15/2024 2:50 PM EST) HGB A1C 11.6(A) 4.2 - 6.5 % [facility]- BACK OFFICE POCT Capillary Blood Blood / Unknown 2:50 PM EST [facility] LAB - BLOOD DRAW Final Resu lt [facility] BACK OFFICE POCT * EYE EXAM (07/09/2024 3:00 AM EDT) 07/09/2024 3:00 AM EDT Alyson England PA-C OTHER Edited Resul t - Final * (ABNORMAL) LIPIDS W RFLX TO DIRECT LDL (07/05/2024 4:53 PM EDT) CHOLESTEROL, TOTAL 171 <200 mg/dL [email or web address] HDL CHOLESTEROL 44 > OR = 40 mg/dL [email or web address] TRIGLYCERIDES 116 <150 mg/dL [email or web address] LDL-CHOLESTEROL 106(H) 99 mg/dL (calc) [email or web address] Comment: Reference range: <100 Desirable range <100 mg/dL for primary prevention; <70 mg/dL for patients with CHD or diabetic patients with > or = 2 CHD risk factors. LDL-C is now calculated using the Luis E calculation, which is a validated novel method providing better accuracy than the Friedewald equation in the estimation of LDL-C. Jose Alberto ADEN et al. BENITA. 2013;310(19): 1149-5855 (http://education.Biotherapeutics/faq/VHM696) CHOL/HDLC RATIO 3.9 <5.0 (calc) [email or web address] NON-HDL CHOLESTEROL 127 <130 mg/dL (calc) [email or web address] Comment: For patients with diabetes plus 1 major ASCVD risk factor, treating to a non-HDL-C goal of <100 mg/dL (LDL-C of <70 mg/dL) is considered a therapeutic option. Blood Blood / Unknown 07/05/2024 4 :53 PM EDT 07/05/2024 4:54 PM EDT Narrative [facility] - 07/06/2024 3:51 AM EDT FASTING:NO us Alyson England PA-C LAB - BLOOD DRAW Final Resul t [facility] [address] [address], [email or web address] [address] [place] [id number] * (ABNORMAL) COMPREHENSIVE METABOLIC PANEL (07/05/2024 4:53 PM EDT) Pathologist [facility] GLUCOSE 227(H) 65 - 139 mg/dL [email or web address] Comment: Non-fasting reference interval UREA NITROGEN (BUN) 17 7 - 25 mg/dL [email or web address] CREATININE (blood) 0.89 0.70 - 1.30 mg/dL [email or web address] EGFR 104 > OR = 60 mL/min/1. 73m2 [email or web address] BUN/CREATININE RATIO SEE NOTE: [email or web address] Comment: Not Reported: BUN and Creatinine are within reference range. SODIUM 135 135 - 146 mmol/L [facility] POTASSIUM 4.4 3.5 - 5.3 mmol/L [email or web address] CHLORIDE 101 98 - 110 mmol/L [facility] CARBON DIOXIDE 29 20 - 32 mmol/L [email or web address] CALCIUM 9.5 8.6 - 10.3 mg/dL [email or web address] PROTEIN, TOTAL 7.2 6.1 - 8.1 g/dL [facility] ALBUMIN 4.4 3.6 - 5.1 g/dL [email or web address] GLOBULIN 2.8 1.9 - 3.7 g/dL (calc) [facility] ALBUMIN/GLOBULI N RATIO 1.6 1.0 - 2.5 (calc) [facility] [place] [employer] BILIRUBIN, TOTAL 0.7 0.2 - 1.2 mg/dL [facility] ALKALINE PHOSPHATASE 74 35 - 144 U/L [facility] AST 16 10 - 35 U/L [facility] ALT 29 9 - 46 U/L [facility] Blood Blood / Unknown 07/05/2024 4 :53 PM EDT 07/05/2024 4:54 PM EDT Narrative [facility] [facility] - 07/06/2024 3:51 AM EDT FASTING:NO Alyson England PA-C LAB - BLOOD DRAW Final Resul t [facility] [employer] [facility] [address] [address], [employer] [address] [phone] * MICROALBUMIN/CREATININE RATIO, URINE, RANDOM (03/26/2024 3:55 PM EDT) CREATININE, RANDOM URINE 147 20 - 320 mg/dL [facility] MICROALBUMIN 1.2 mg/dL [employer] [facility] Comment: Reference Range Not established MICROALBUMIN/CREA TININE RATIO, RANDOM URINE 8 <30 mg/g creat [employer] [facility] Comment: The ADA defines abnormalities in albumin excretion as follows: Albuminuria Category Result (mg/g creatinine) Normal to Mildly increased <30 Moderately increased 30-299 Severely increased > OR = 300 The ADA recommends that at least two of three specimens collected within a 3-6 month period be abnormal before considering a patient to be within a diagnostic category. Urine Urine specimen / Unknown 03/26/2024 3:55 PM EDT 03/26/2024 3:55 PM EDT Narrative [facility] - 03/27/2024 7:47 PM EDT FASTING:NO Jerald Nanceis PharmD LAB URINE AMBULATORY Carlee l Result Performing Organization Address [facility] de Phone Number [facility] [address] [address], [employer] [address] [phone] * Hep C Antibody with Reflex HCV RNA (10/02/2023 3:10 PM EST) Pathologist [facility] HEPATITIS C ANTIBODY NON-REACT RUCHI NON-REACT RUCHI [facility] Comment: HCV antibody was non-reactive. There is no laboratory evidence of HCV infection. In most cases, no further action is required. However, if recent HCV exposure is suspected, a test for HCV RNA (test code 02582) is suggested. For additional information please refer to http://education.Mobile[employer]/faq/QLE83l4 (This link is being provided for informational/ educational purposes only.) Blood Blood / Unknown 10/02/2023 3 :10 PM EST 10/02/2023 3:10 PM EST Rafi Wright MD LAB - BLOOD DRAW Edited Resu lt - Final Performing Organization Address [facility] de Phone Number [facility] [address] [address], [employer] [facility] [address] [phone] * HIV Ag & Ab with Reflex Western Blot (10/02/2023 3:10 PM EST) Pathologist [facility] HIV AG/AB, 4TH GEN NON-REAC TIVE NON-REAC TIVE [facility] Comment: HIV-1 antigen and HIV-1/HIV-2 antibodies were not detected. There is no laboratory evidence of HIV infection. PLEASE NOTE: This information has been disclosed to you from records whose confidentiality may be protected by state law. If your state requires such protection, then the state law prohibits you from making any further disclosure of the information without the specific written consent of the person to whom it pertains, or as otherwise permitted by law. A general authorization for the release of medical or other information is NOT sufficient for this purpose. For additional information please refer to http://education.Mobileye/faq/RFG498 (This link is being provided for informational/ educational purposes only.) The performance of this assay has not been clinically validated in patients less than 2 years old. Blood Blood / Unknown 10/02/2023 3 :10 PM EST 10/02/2023 3:10 PM EST us Rafi Wright MD LAB - BLOOD DRAW Final Resul t [facility] [address] [address], [facility] [address] [place] [address] from Last 3 Months or Most Recently Relevant to Health Maintenance Insurance [facility] [place] MED[place] DENT[place] Care Teams Ball Racker Relationship Specialty Start Date End Date Alyson England PA-C [address] [place] [id number] PCP - General Internal Medicine 08/14/23
--- OUTSIDE RECORDS SUMMARY | 2025-07-15 07:46 | XMS_ITS | Clinical Summary ---
Author Organization [facility] Address [address] [facility] [address] [place] [address] Care Team Providers Care Vp Treasurer Name Role Phone Unavailable Primary Care Provider Unavailabl e Encounters Date Type Department Care Team Description 06/03/2025 Population Health Risk Score [facility] (C3) Department [address] [phone] Provider, Population Health Generic from Last 3 Months Social History Tobacco Use Types Packs/Day Years Used Date Smoking Tobacco: Never Assessed Sex and Gender Information Value Date Recorded Sex Assigned at Not on file Legal Sex Male 1:56 PM EDT Gender Identity Not on file Sexual Orientation Not on file Plan of Treatment Health Maintenance Due Date Last Done Comments CT Colonography 1974 Colonoscopy 1974 Colorectal Cancer Screening 1974 Depression Screening 1974 FIT DNA/Cologuard 1974 FIT 1974 FOBT 1974 Lipid Panel 1974 SDOH Screening 1974 Sigmoidoscopy 1974 Disability Screening 1974 Alcohol/Substance Use Screening 1986 Tobacco Screening 1986 Family Planning (PISQ) 1989 Hepatitis C Screening 02/03/1992 Pneumococcal Vaccine: 50+ Years (1 of 1 - PCV) 02/03/2024 COVID-19 Vaccine ( - 2023-2 5 season) 2025 Influenza Vaccine (#1) 2025 10/02/2023 DTaP/Tdap/Td Vaccines (2 - T d or Tdap) 10/02/2033 10/02/2023 RSV Patients and Patients Aged 60 years or older (1 - 1-dose 75+ series) 2049 HIV Screening Completed 10/02/2023, 10/02/2023 Hepatitis B Vaccines Completed 01/06/2025, 07/05/2024 Zoster Vaccines Completed 01/06/2025, 07/05/2024 HIB Vaccines Aged Out No longer eligi ble based on patient's age to complete this topic HPV Vaccines Aged Out No longer eligi ble based on patient's age to complete this topic Hepatitis A Vaccines Aged Out No long er eligible based on patient's age to complete this topic IPV Vaccines Aged Out No longer eligi ble based on patient's age to complete this topic Meningococcal B Vaccine Aged Out No l onger eligible based on patient's age to complete this topic Meningococcal Vaccine Aged Out No kendra yuliana eligible based on patient's age to complete this topic RSV under 20 months Aged Out No longe r eligible based on patient's age to complete this topic Rotavirus Vaccines Aged Out No longer eligible based on patient's age to complete this topic
--- OUTSIDE RECORDS SUMMARY | 2025-07-15 07:46 | XMS_ITS | Clinical Summary ---
Author Organization [address] [place] [address] [place] [phone] Phone Care Team Providers Care Emr Analyst Name Role Phone Kenneth Mccrary BODY RECALL INSTRUCTOR Primary Care Provider Encounters Date Type Department Care Team Description 07/04/2025 9:10 AM EDT Ancillary Procedure [facility] Cardiology [facility] [address] [facility] [address] [place] [phone] from Last 3 Months Medical History Medical History Date Comments Diabetes mellitus (CMS/HCC V24, CMS/HCC V28) DX:Diabetes mellitus (HCC) HTN (hypertension) DX:HTN (hyper tension) Social History Tobacco Use Types Packs/Day Years Used Date Smoking Tobacco: Former Cigarettes Q uit: 11/13/2018 Smokeless Tobacco: Never Alcohol Use Standard Drinks/Week Comments Not Currently 0 (1 standard drink = 0.6 oz pur e alcohol) Sex and Gender Information Value Date Recorded Sex Assigned at Not on file Legal Sex Male 8:58 PM EST Gender Identity Not on file Sexual Orientation Not on file Obstetrics History Last Filed Vital Signs Vital Sign Reading Time Taken Comments Blood Pressure 115/79 02/13/2024 10:47 AM EDT Pulse - - Temperature - - Respiratory Rate - - Oxygen Saturation - - Inhaled Oxygen Concentration - - Weight 109 kg (240 lb) 02/13/2024 10:47 AM EDT Height 175.3 cm (5' 9 ) 02/13/2024 10:47 AM EDT Body Mass Index 35.44 02/13/2024 10:47 AM EDT Plan of Treatment Upcoming Encounters Date Type Department Care Team (Late st Contact Info) Description 09/08/2025 9:30 AM EDT Ancillary Procedure [facility] [address] [facility] [address] [place] [phone] Health Maintenance Due Date Last Done Comments Diabetes: Annual Foot Exam 02/03/1984 Diabetes: Annual Retina Eye Exam 02/03/1984 Colorectal Cancer Screening: Colonoscopy 12/08/2023 HIV Screening 12/08/2023 Social Influencers of Health Screening 12/08/2023 Pneumococcal Vaccine: 50+ Years (1 of 1 - PCV) 02/03/2024 Depression Screening 11/13/2024 Diabetes: Blood Sugar Contro l Test (HGBA1C) 12/12/2024 10/31/2019 Diabetes: Annual Urine Albumin-Creatinine Ratio (uACR) 03/26/2025 03/26/2024 Diabetes: Annual GFR (Glomerular Filtration Rate) 07/05/2025 07/05/2024 Hypertension/CHF/CAD Annual BMP Blood Test 07/05/2025 07/05/2024 COVID-19 Vaccine (1 - 2023-2 5 season) 2025 Influenza Vaccine (#1) 2025 10/02/2023 Cholesterol Screening (Lipid Panel) 07/05/2029 07/05/2024 DTaP,Tdap,and Td Vaccines (2 - Td or Tdap) 10/02/2033 10/02/2023 Hepatitis C Screening Completed 10/02/2023 Hepatitis B Vaccines Completed 01/06/2025, 07/05/2024 [...] on patient's age to complete this topic MMR Vaccines Aged Out No longer eligi ble based on patient's age to complete this topic Meningococcal ACWY Vaccine Aged Out N o longer eligible based on patient's age to complete this topic Meningococcal B Vaccine Aged Out No l onger eligible based on patient's age to complete this topic RSV Immunization Patients Under 20 months Aged Out No longer eligible b ased on patient's age to complete this topic Varicella Vaccines Aged Out No longer eligible based on patient's age to complete this topic Medical Devices Implanted Type Area Accounting System Expert Device Identifier Shelf Expiration Date Model / Serial / Lot Bsci-Crm [id number] Implanted:05/14 (Quantity not on file) Cardiac ICD [employer] MGMT [id number] / [id number] / Procedures Procedure Name Priority Date/Time Associated Diagnosis Comments CARDIAC DEVICE CHECK- REMOTE- MURJ Routine 07/04/2025 9:08 AM EDT from Last 3 Months Results * Cardiac device check - Remote- MURJ (07/04/2025 9:08 AM EDT) Date Time Interrogation Session [id number] CV DEVICE CHECK Type Interrogation Session Remote Scheduled CV DEVICE CHECK Implantable Pulse Generator Accounting System Expert BSX CV DEVICE CHECK Implantable Pulse Generator Type ICD CV DEVICE CHECK Implantable Pulse Generator Model D142 CV DEVICE CHECK Implantable Pulse Generator Serial Number [id number] CV DEVICE CHECK Implantable Pulse Generator Implant Date [id number] CV DEVICE CHECK Battery Remaining Percentage 100.00 CV DEVICE CHECK Battery Remaining Longevity 102.0 CV DEVICE CHECK Battery Status Beginning of Service CV DEVICE CHECK Capacitor Charge Time 11.100 CV DEVICE CHECK Darwin Statistic RA Percent Paced 0.00 CV DEVICE CHECK Darwin Statistic RV Percent Paced 0.00 CV DEVICE CHECK Atrial Tachy Statistic AT/AF [place] Percent 1.00 CV DEVICE CHECK Lead Channel Sensing Intrinsic Amplitude 6.700 CV DEVICE CHECK Lead Channel Setting Sensing Sensitivity 0.25 CV DEVICE CHECK Lead Channel Impedance Value 627 CV DEVICE CHECK Lead Channel Setting Pacing Amplitude 2.000 CV DEVICE CHECK Lead Channel Setting Pacing Pulse Width 0.5 CV DEVICE CHECK Lead Channel Sensing Intrinsic Amplitude 11.700 CV DEVICE CHECK Lead Channel Setting Sensing Sensitivity 0.60 CV DEVICE CHECK Lead Channel Impedance Value 406 CV DEVICE CHECK Lead Channel Setting Pacing Amplitude 2.000 CV DEVICE CHECK Lead Channel Setting Pacing Pulse Width 0.5 CV DEVICE CHECK Darwin Setting Mode (NBG Code) DDD CV DEVICE CHECK Darwin Setting Lower Rate Limit 50 CV DEVICE CHECK Darwin Setting AT Mode Switch Rate 170 CV DEVICE CHECK Darwin Setting Maximum Tracking Rate 130 CV DEVICE CHECK Darwin Setting PAV Delay 200 CV DEVICE CHECK Darwin Setting JUAN DAVID Delay 200 CV DEVICE CHECK Therapy Statistic Recent Shocks Delivered 0 CV DEVICE CHECK Therapy Statistic Recent Shocks Aborted 0 CV DEVICE CHECK Therapy Statistic Recent ATP Delivered 0 CV DEVICE CHECK Shock Measured Impedance 55 CV DEVICE CHECK Zone Setting Type Category VF CV DEVICE CHECK Rate 240 CV DEVICE CHECK Therapies Burst,41J,41J,41J x 6 CV DEVICE CHECK Zone Setting Status On CV DEVICE CHECK Zone ID 1 CV DEVICE CHECK Zone Setting Type Category VT CV DEVICE CHECK Rate 180 CV DEVICE CHECK Therapies 3 x Burst+Scan,41J,41J ,41J x 4 CV DEVICE CHECK Zone Setting Status On CV DEVICE CHECK Zone ID 2 CV DEVICE CHECK Date of Service 2025-07-04 CV DEVICE CHECK Anatomical Region Laterality Modality Device Interroga tion 06/26/2025 9:53 PM EDT Impressions 07/04/2025 8:59 AM EDT Normal Remote: With Events * Normal Device Function * Events or Alerts: 2 * AF episodes < 1 minute each * Battery: Battery is at 100%, 8.50 yrs * Sensing, impedance and thresholds reviewed * Programmed parameters reviewed * Presenting rhythm reviewed * Heart Rate Histograms reviewed Narrative Procedure Note Cuco Munson MD - 07/04/2025 IMPRESSION: Normal Remote: With Events * Normal Device Function * Events or Alerts: 2 * AF episodes < 1 minute each * Battery: Battery is at 100%, 8.50 yrs * Sensing, impedance and thresholds reviewed * Programmed parameters reviewed * Presenting rhythm reviewed * Heart Rate Histograms reviewed Cuco Munson MD CV IMPLANTABLE CARDIAC DEVICE PROCEDURES Final Result from Last 3 Months Care Teams Emr Analyst Relationship Specialty Start Date End Date Kenneth Mccrary FNP [address] [place] [phone] PCP - General 06/02/23
[2025-07-15 09:30] VITALS: BP 102/67; PULSE 77; RESP 14; TEMP 36.5; O2SAT 97
[2025-07-15 09:32] VITALS: BP 106/66; PULSE 76
[2025-07-15 09:35] VITALS: BP 102/70; PULSE 75
[2025-07-15 09:39] VITALS: BP 104/67; PULSE 90
[2025-07-15 09:47] LABS: Troponin-I High Sensitivity 21.2 ng/L (<3.5-35.0)
[2025-07-15 10:23] LABS: Glucose, Whole Blood 217 mg/dL (60-115)
--- NOTE | 2025-07-15 10:24 | MHC.CM.ED ---
Received case management consult from Dr Sotelo. Patient came to the ER due to dizziness. Reported no insurance and unable to obtain home medications. Patient was d/c'd from [facility] on 05/12/2025. At that time, d/c meds were sent to [facility] pharmacy. T/W spoke with pharmacy. Meds were picked up at that time but not since. Spoke with [facility] on [facility]. They have no record of patient ever using their pharamcy. Per [facility], [facility] is active. Dr Sotelo aware and will send RX to [facility] outpatient pharmacy. Pharmacy will bring medications when they are ready. Continue to monitor for d/c needs.
[2025-07-15 10:34] LABS: Appearance Urine Clear; Glucose Urine UA >=1000 mg/dL (Negative); PH 5.0 (5.0-9.0); Specific Gravity - Urine >= 1.030 (1.005-1.025); UMIC TRIGGER UA YES
[2025-07-15 11:36] VITALS: BP 111/68; PULSE 79; RESP 18; TEMP -17.7; TEMP 0; O2SAT 99
== END 2025-07-15 11:56 | disposition home or self-care (01) ==
PROVIDERS: Emergency Provider Emergency Medicine; PCP Physician Assistant
DX: R06.00 Dyspnea, unspecified (principal); E11.65 Type 2 diabetes mellitus with hyperglycemia; R07.89 Other chest pain; R42 Dizziness and giddiness; R53.81 Other malaise; I10 Essential (primary) hypertension; R06.02 Shortness of breath
CPT/HCPCS: 36415; 71046; 80053; 81001; 82010; 82803; 82947; 83735; 83880; 84484; 85027; 93005; 99284

== ENCOUNTER → 2025-07-15 06:26 | Outpatient (BNV) | payer MEDICAID, SELFPAY | PROVIDERS: Emergency Provider Emergency Medicine; PCP Physician Assistant; Visit Provider Radiology Diagnostic Radiology | DX: R06.02 Shortness of breath (principal) | CPT/HCPCS: 71046 ==

== ENCOUNTER → 2025-07-15 07:42 | Outpatient (BNV) | payer MEDICAID, SELFPAY | PROVIDERS: Emergency Provider Emergency Medicine; PCP Physician Assistant; Visit Provider Internal Medicine Cardiovascular Disease | DX: R94.31 Abnormal electrocardiogram [ECG] [EKG] (principal); R07.89 Other chest pain; R42 Dizziness and giddiness; R53.81 Other malaise | CPT/HCPCS: 93010 ==

== ENCOUNTER 2025-08-09 21:12 | Emergency (ER) | payer MEDICAID, SELFPAY ==
--- NOTE | 2025-08-09 | ECG_ITS ---
Test Reason : chest pain Blood Pressure : */* mmHG Vent. Rate : 104 BPM Atrial Rate : 104 BPM P-R Int : 142 ms QRS Dur : 92 ms QT Int : 360 ms P-R-T Axes : 65 -37 73 degrees QTcB Int : 473 ms Sinus tachycardia Left axis deviation Anteroseptal infarct (cited on or before 15-Jul-2025) Abnormal ECG When compared with ECG of 15-Jul-2025 07:42, Questionable change in initial forces of Lateral leads Referred By: Generic ED Physician Electronically Signed By: Kulwant Dow
[2025-08-09 21:21] VITALS: BP 101/61; PULSE 100; RESP 18; TEMP 36.8; O2SAT 94; BMI 29.5
[2025-08-09 21:44] LABS: MANUAL DIFF FLAG NO
[2025-08-09 21:46] LABS: Hematocrit 38.6 % (42.0-52.0); Hemoglobin 13.8 g/dl (14.0-18.0); Imm Gran Abs Auto 0.02 X10*3/uL (0.00-0.03); Imm Gran Pct Auto 0.3 % (0.0-0.4); Lymphocytes Absolute Auto 1.8 X10*3/uL (1.2-4.9); Mean Corpuscular HGB Conc 35.8 g/dl (31.0-36.0); Mean Corpuscular Hemoglobin 31.5 pg (27.0-33.0); Mean Corpuscular Volume 88.1 fL (80.0-98.0); NRBC Abs Auto 0.000 X10*3/uL (0.0-0.012); NRBC Pct Auto 0.0 /100WBC (0.0-0.2); Platelet Count 238 X10*3/uL (160-400); Red Blood Count 4.38 X10*6/uL (4.60-5.80); White Blood Count 7.5 X10*3/uL (4.8-10.8)
--- OUTSIDE RECORDS SUMMARY | 2025-08-09 21:50 | XMS_ITS | Clinical Summary ---
Author Organization [employer] Address [address] [facility] [address] [place] [address] Care Team Providers Care Strategic Marketing Associate Name Role Phone Unavailable Primary Care Provider Unavailabl e Encounters Date Type Department Care Team Description 06/03/2025 Population Health Risk Score [facility] ([facility]) Department [address] [phone] Provider, Population Health Generic from [...]
[2025-08-09 22:03] LABS: IDNOW Serial# 55D5AD1C
[2025-08-09 22:04] LABS: COVID-19 Test Negative (Negative); IDNOW Serial# 58CA691E; Influenza B2 Negative (Negative)
--- NOTE | 2025-08-09 22:05 | PC.NURSE ---
Assumed care of pt, pt presents with hyperglycemia, pt states that he has been urinating a lot and thristy, states that he was getting off the bus and started having blurry vision, aaox4, nad, resting comfortable in the bed
[2025-08-09 22:10] LABS: Troponin-I High Sensitivity 10.8 ng/L (<3.5-35.0)
[2025-08-09 22:12] LABS: Alanine Aminotransferase 44 U/L (0-40); Albumin Level 4.1 g/dL (3.5-5.0); Alkaline Phosphatase 75 U/L (39-117); Anion Gap 12 (12-20); Aspartate Amino Transferase 30 U/L (5-37); Blood Urea Nitrogen 19 mg/dL (9-16); Calcium 8.9 mg/dL (8.4-10.2); Carbon Dioxide 24 mmol/L (22-29); Chloride 107 mmol/L (96-108); Creatinine Clr Calc Pharmacy 104.4; Estimated Glomerular Filt Rate > 60; Potassium 4.0 mmol/L (3.3-5.1); Sodium 139 mmol/L (135-145); Total Protein 6.3 g/dL (6.5-8.0)
[2025-08-09 22:42] LABS: Venous Blood Gas Refer to POC result
[2025-08-09 22:43] LABS: VBG HCO3 21 mmol/L (22-26); VBG O2 % Saturation 99.0 %
[2025-08-09 22:45] VITALS: BP 107/69; PULSE 84; RESP 17; TEMP 36.8; O2SAT 99
[2025-08-09 22:57] LABS: Glucose, Whole Blood 377 mg/dL (60-115)
[2025-08-09 23:37] VITALS: BP 104/65; PULSE 79; RESP 16; TEMP 36.5; O2SAT 100
--- NOTE | 2025-08-10 00:14 | MHC.EDTECH ---
This tech took over care of pt at 2300, rounds and vitals completed, patient urinated 1000MLS of yellow urine in urinal, urine collected and sent to lab, pt is resting with eyes closed, POC taken @0012 and is 104 RN aware, Call campo in reach
[2025-08-10 00:17] LABS: Glucose, Whole Blood 104 mg/dL (60-115)
[2025-08-10 00:24] LABS: Glucose, Whole Blood 95 mg/dL (60-115)
--- NOTE | 2025-08-10 00:24 | ED.GENADULT ---
HPI - General Adult General Chief complaint: General Medical Stated complaint: high bs, chest pain Time Seen by Provider: 08/09/25 22:24 Source: patient Mode of arrival: ambulatory Limitations: no limitations History of Present Illness ED Provider: Dr. Katt Nunes HPI narrative: patient comes to the emergency room complaining of 3 days of feeling stressed. Patient states that he has been noticing that he has been urinating quite a bit. Today, [place] that he had a bit of blurred vision. patient mentioned that he has been having some chest discomfort, no pain, also mentioned shortness of breath. Patient denies any cardiac history, known to be diabetic. Related Data Previous Rx's ?Medication ?Instructions ?Recorded aspirin 81 mg tablet 81 mg PO DAILY #30 tabs 07/15/25 atorvastatin 40 mg tablet (Lipitor) 40 mg PO DAILY #30 tabs 07/15/25 carvedilol 3.125 mg tablet 3.125 mg PO BID #60 tabs 07/15/25 clopidogrel 75 mg tablet (Plavix) 75 mg PO DAILY #30 tabs 07/15/25 dapagliflozin propanediol 10 mg 10 mg PO DAILY #30 tabs 07/15/25 tablet (Farxiga) dulaglutide 1.5 mg/0.5 mL 1.5 mg (0.5 mL) subcut QWEEK #2 mL 07/15/25 subcutaneous pen injector (Trulicity) ezetimibe 10 mg tablet 10 mg PO DAILY #30 tabs 07/15/25 fluoxetine 10 mg capsule 10 mg PO DAILY #30 caps 07/15/25 gabapentin 100 mg capsule 100 mg PO BEDTIME #30 caps 07/15/25 glipizide 5 mg tablet 5 mg PO BID #60 tabs 07/15/25 insulin glargine 100 unit/mL (3 60 unit (0.6 mL) subcut QPM #15 mL 07/15/25 mL) subcutaneous pen (Lantus Solostar U-100 Insulin) insulin lispro 200 unit/mL (3 mL) 1 sliding scale dose subcut 07/15/25 subcutaneous pen USEASDIRECTD #6 mL lisinopril 2.5 mg tablet 2.5 mg PO DAILY #30 tabs 07/15/25 metformin 500 mg tablet 500 mg PO BID #60 tabs 07/15/25 quetiapine 100 mg tablet (Seroquel) 100 mg PO BEDTIME #30 tabs 07/15/25 sacubitril 49 mg-valsartan 51 mg 1 tab PO BID #60 tabs 07/15/25 tablet (Entresto) valacyclovir 1 gram tablet 1,000 mg PO DAILY #30 tabs 07/15/25 Allergies Allergy/AdvReac Type Severity Reaction Status Date / Time No Known Allergies Allergy Verified 08/09/25 21:25 Review of Systems Review of Systems: Constitutional : No Weight loss, No Fever, No Chills, No Night Sweats, No Fatigue, No Malaise ENT/Mouth : No Hearing loss, No Ear Pain, No Nasal Congestion, No Sinus Pain, No Hoarseness, No sore throat, No Rhinorrhea, No Swallowing Difficulty Eyes: No Eye Pain, No Swelling, No Redness, No Foreign Body, No Discharge, Complaining of blurred vision Cardiovascular : complaining of mild bilateral chest discomfort without Chest Pain, No SOB, mild Dyspnea on Exertion, No Orthopnea, No Edema, No Palpitations Respiratory : No Cough, No Sputum, No Wheezing, No Smoke Exposure, mild Dyspnea Gastrointestinal : No Nausea, No Vomiting, No Diarrhea, No Constipation, No abdominal Pain, No Hematochezia, No Melena Genitourinary : no irregular bleeding, No Dysuria, No Urinary Frequency, No Hematuria, No Urinary Incontinence, No Urgency, No Flank Pain, No Urinary Flow Changes, No Hesitancy Musculoskeletal : No joint pain, No Myalgias, No Joint Swelling Skin : No Skin Lesions, No rash Neuro : No Weakness, No Numbness, No Paresthesias, No Loss of Consciousness, No Dizziness, No Headache Psych : No Anxiety/Panic, No Depression, No SI/HI/AH/VH, No Social Issues, Heme/Lymph: No Bruising, No Bleeding,No Lymphadenopathy Endocrine : No Polyuria, No Polydipsia, No Temperature Intolerance [facility] Past Medical History Medical History Cardiomyopathy CAD (coronary artery disease) HLD (hyperlipidemia) HTN (hypertension) Social History Social History (Updated 07/15/25 @ 07:02 by Allyssa Sotelo DO) Patient Tobacco Use Status: Former Tobacco user Smoked in Last 30 Days: No Advance Directives: No Advance Directives Information Provided: No Physical Exam ED Exam Exam: Appearance: Alert. Oriented X3. No acute distress. Eyes: Pupils equal, round and reactive to light. ENT: Pharynx normal. Neck: Normal inspection. Neck supple. No lymph nodes noted. No crepitus CVS: Normal heart rate and rhythm. Pulses normal. Normal S1 and S2 Respiratory: No respiratory distress. Breath sounds normal. No Wheezing. No rales Abdomen: Soft and nontender. No rigidity. No distention. Skin: Skin warm and dry. Normal skin color. Normal skin turgor. Extremities: No lower extremity edema. No Lacerations. No Rash Neuro: Oriented X 3. No motor deficit. No sensory deficit. Moving all extremities. No slurred speech. CN 2 through 12 grossly intact Psych: calm, cooperative, normal affect Vital Signs: Vital Signs - 24 hr 08/09/25 21:21 08/09/25 22:45 08/09/25 23:37 Temperature 98.3 F 98.3 F 97.7 F Pulse Rate 100 84 79 Respiratory Rate 18 17 16 Blood Pressure 101/61 107/69 104/65 Pulse Oximetry 94 99 100 Oxygen Delivery Method Room Air Room Air Room Air 08/10/25 02:00 08/10/25 04:00 Temperature 98.0 F 97.7 F Pulse Rate 69 68 Respiratory Rate 16 16 Blood Pressure 100/61 103/69 Pulse Oximetry 98 98 Oxygen Delivery Method Room Air Room Air BMI result Body Mass Index 29.5 Course Course Course Narrative: patient known to be diabetic. Patient has been complaining of worsening blurred vision for the last day and increased urination. Denies dysuria Medications Administered Discontinued Medications Generic Name Dose Route Start Last Admin Trade Name Freq PRN Reason Stop Dose Admin Sodium Chloride 2,000 mls @ 999 mls/hr 08/09/25 22:25 08/10/25 00:39 Ns IVCONT 08/10/25 00:25 Infused .Q2H1M ONE Infusion Insulin Human Regular 10 unit 08/09/25 22:25 08/09/25 22:40 Insulin Regular, Human 100 Unit/Ml 10 Ml Vial IVPUSH 08/09/25 22:26 10 unit ONCE ONE Administration Medical Decision Making Medical Decision Making [facility] Narrative: My interpretation of EKG: Normal sinus rhythm, heart rate 79, no ST segment depression or elevation, borderline left bundle branch block, QTC 456, no signs of STEMI my interpretation of labs: No significant abnormality in patient's hematology or chemistry other than a glucose of 450. Venous pH of 7.43, bicarb 21, anion gap 12, troponin negative patient receiving couple of L of normal saline and insulin. Urine toxicology positive for cocaine, negative for UTI even previous to insulin, patient's seems very sleepy, wakes up to name answers questions falls back asleep, we will order a urine toxicology. during these episodes, glucose in the 90s patient has been sleeping comfortably, no nausea or vomiting, patient back to normal. Glucose is 176. at this time, patient no longer having chest pain, no shortness of breath. vitals are stable, blood pressure 103/69, heart rate 68, oxygen 98% patient states that he still has enough medications at home. Patient now is to be a bit more compliant. Differential Diagnosis Differential Diagnoses: The differential diagnosis associated with the presentation includes ( hyperglycemia, medication noncompliance, atypical chest pain, ACS) Admission/Observation Consideration of admission/observation: Escalation of care including admission/observation considered ( given patient's multiple medical problems and presentation, observation was ) Lab Data MDM Lab Attestation statement: I reviewed the patient's lab results. 08/09/25 21:39 08/09/25 21:39 Labs: Lab Results 08/09/25 08/09/25 08/09/25 Range/Units 21:21 21:39 22:38 WBC 7.5 (4.8-10.8) X10*3/uL RBC 4.38 L (4.60-5.80) X10*6/uL Hgb 13.8 L (14.0-18.0) g/dl Hct 38.6 L (42.0-52.0) % MCV 88.1 (80.0-98.0) fL MCH 31.5 (27.0-33.0) pg MCHC 35.8 (31.0-36.0) g/dl RDW 13.1 (11.0-16.0) % Plt Count 238 (160-400) X10*3/uL MPV 9.3 L (9.4-12.4) fL Immature Gran % (Auto) 0.3 (0.0-0.4) % Neut % (Auto) 66.7 (45-73) % Lymph % (Auto) 23.5 (20-40) % [place] % (Auto) 7.8 (2-11) % Eos % (Auto) 0.9 (0-4) % Baso % (Auto) 0.8 (0-2) % Lymph # (Auto) 1.8 (1.2-4.9) X10*3/uL [place] # (Auto) 0.6 (0.1-1.2) X10*3/uL Eos # (Auto) 0.1 (0.0-0.4) X10*3/uL Baso # (Auto) 0.1 (0.0-0.2) X10*3/uL Abs Immat Gran (auto) 0.02 (0.00-0.03) X10*3/uL Absolute Neuts (auto) 5.0 (2.0-8.3) x10*3/uL Absolute Nucleated RBC 0.000 (0.0-0.012) X10*3/uL Nucleated RBC % (auto) 0.0 (0.0-0.2) /100WBC VBG pH 7.43 (7.32-7.43) VBG pCO2 32 mmHg VBG pO2 93 mmHg VBG HCO3 21 L (22-26) mmol/L VBG O2 Saturation 99.0 % VBG Base Excess -1.8 mmol/L Sodium 139 (135-145) mmol/L Potassium 4.0 (3.3-5.1) mmol/L Chloride 107 (96-108) mmol/L Carbon Dioxide 24 (22-29) mmol/L Anion Gap 12 (12-20) BUN 19 H (9-16) mg/dL Creatinine 0.93 (0.5-1.4) mg/dL Estim Creat Clear Calc 104.4 Estimated GFR > 60 POC Glucose 377 H* (60-115) mg/dL Random Glucose 450 H* (60-115) mg/dL Calcium 8.9 (8.4-10.2) mg/dL Total Bilirubin 0.9 (0.0-1.0) mg/dL AST 30 (5-37) U/L ALT 44 H (0-40) U/L Alkaline Phosphatase 75 (39-117) U/L Troponin I High Sens 10.8 (<3.5-35.0) ng/L Total Protein 6.3 L (6.5-8.0) g/dL Albumin 4.1 (3.5-5.0) g/dL Urine Color Urine Appearance Urine pH (5.0-9.0) Ur Specific [place] (1.005-1.025) Urine Protein (Neg-Trace) mg/dL Urine Glucose (UA) (Negative) mg/dL Urine Ketones (Negative) mg/dL Urine Blood (Negative) Urine Nitrite (Negative) Ur Leukocyte Esterase (Negative) Urine RBC (0-2) /HPF Urine WBC (0-5) /HPF Ur Squamous Epith Cells (0-2) /HPF Urine Bacteria (None Seen) Hyaline Casts (0-2) /LPF Urine Opiates Screen (Not Detect) Ur Buprenorphine Scrn (Not Detect) ng/mL Ur Oxycodone Screen (Not Detect) ng/mL Urine Methadone Screen (Not Detect) ng/mL Urine Fentanyl Screen (Not Detect) Ur Barbiturates Screen (Not Detect) Ur Phencyclidine Scrn (Not Detect) Ur Amphetamines Screen (Not Detect) U Benzodiazepines Scrn (Not Detect) Urine Cocaine Screen (Not Detect) U Marijuana (THC) Screen (Not Detect) COVID-19 (RICARDO) Negative (Negative) COVID-19 Clin Com See Note Influenza Type A (NEGRO) Negative (Negative) Influenza Type B (NEGRO) Negative (Negative) Influenza A & B Note See Note 08/10/25 08/10/25 08/10/25 Range/Units 00:12 00:13 00:21 WBC (4.8-10.8) X10*3/uL RBC (4.60-5.80) X10*6/uL Hgb (14.0-18.0) g/dl Hct (42.0-52.0) % MCV (80.0-98.0) fL MCH (27.0-33.0) pg MCHC (31.0-36.0) g/dl RDW (11.0-16.0) % Plt Count (160-400) X10*3/uL MPV (9.4-12.4) fL Immature Gran % (Auto) (0.0-0.4) % Neut % (Auto) (45-73) % Lymph % (Auto) (20-40) % [place]e % (Auto) (2-11) % Eos % (Auto) (0-4) % Baso % (Auto) (0-2) % Lymph # (Auto) (1.2-4.9) X10*3/uL [place] # (Auto) (0.1-1.2) X10*3/uL Eos # (Auto) (0.0-0.4) X10*3/uL Baso # (Auto) (0.0-0.2) X10*3/uL Abs Immat Gran (auto) (0.00-0.03) X10*3/uL Absolute Neuts (auto) (2.0-8.3) x10*3/uL Absolute Nucleated RBC (0.0-0.012) X10*3/uL Nucleated RBC % (auto) (0.0-0.2) /100WBC VBG pH (7.32-7.43) VBG pCO2 mmHg VBG pO2 mmHg VBG HCO3 (22-26) mmol/L VBG O2 Saturation % VBG Base Excess mmol/L Sodium (135-145) mmol/L Potassium (3.3-5.1) mmol/L Chloride (96-108) mmol/L Carbon Dioxide (22-29) mmol/L Anion Gap (12-20) BUN (9-16) mg/dL Creatinine (0.5-1.4) mg/dL Estim Creat Clear Calc Estimated GFR POC Glucose 104 95 (60-115) mg/dL Random Glucose (60-115) mg/dL Calcium (8.4-10.2) mg/dL Total Bilirubin (0.0-1.0) mg/dL AST (5-37) U/L ALT (0-40) U/L Alkaline Phosphatase (39-117) U/L Troponin I High Sens (<3.5-35.0) ng/L Total Protein (6.5-8.0) g/dL Albumin (3.5-5.0) g/dL Urine Color Yellow Urine Appearance Clear Urine pH 6.0 (5.0-9.0) Ur Specific [place] >= 1.030 H (1.005-1.025) Urine Protein Negative (Neg-Trace) mg/dL Urine Glucose (UA) >=1000 H (Negative) mg/dL Urine Ketones Negative (Negative) mg/dL Urine Blood Negative (Negative) Urine Nitrite Negative (Negative) Ur Leukocyte Esterase Negative (Negative) Urine RBC 0-2 (0-2) /HPF Urine WBC 0-5 (0-5) /HPF Ur Squamous Epith Cells 0-2 (0-2) /HPF Urine Bacteria None Seen (None Seen) Hyaline Casts 0-2 (0-2) /LPF Urine Opiates Screen Not Detected (Not Detect) Ur Buprenorphine Scrn Not Detected (Not Detect) ng/mL Ur Oxycodone Screen Not Detected (Not Detect) ng/mL Urine Methadone Screen Not Detected (Not Detect) ng/mL Urine Fentanyl Screen Not Detected (Not Detect) Ur Barbiturates Screen Not Detected (Not Detect) Ur Phencyclidine Scrn Not Detected (Not Detect) Ur Amphetamines Screen Not Detected (Not Detect) U Benzodiazepines Scrn Not Detected (Not Detect) Urine Cocaine Screen POSITIVE H (Not Detect) U Marijuana (THC) Screen Not Detected (Not Detect) COVID-19 (RICARDO) (Negative) COVID-19 Clin Com Influenza Type A (NEGRO) (Negative) Influenza Type B (NEGRO) (Negative) Influenza A & B Note 08/10/25 08/10/25 Range/Units 01:04 03:59 WBC (4.8-10.8) X10*3/uL RBC (4.60-5.80) X10*6/uL Hgb (14.0-18.0) g/dl Hct (42.0-52.0) % MCV (80.0-98.0) fL MCH (27.0-33.0) pg MCHC (31.0-36.0) g/dl RDW (11.0-16.0) % Plt Count (160-400) X10*3/uL MPV (9.4-12.4) fL Immature Gran % (Auto) (0.0-0.4) % Neut % (Auto) (45-73) % Lymph % (Auto) (20-40) % [place] % (Auto) (2-11) % Eos % (Auto) (0-4) % Baso % (Auto) (0-2) % Lymph # (Auto) (1.2-4.9) X10*3/uL [place] # (Auto) (0.1-1.2) X10*3/uL Eos # (Auto) (0.0-0.4) X10*3/uL Baso # (Auto) (0.0-0.2) X10*3/uL Abs Immat Gran (auto) (0.00-0.03) X10*3/uL Absolute Neuts (auto) (2.0-8.3) x10*3/uL Absolute Nucleated RBC (0.0-0.012) X10*3/uL Nucleated RBC % (auto) (0.0-0.2) /100WBC VBG pH (7.32-7.43) VBG pCO2 mmHg VBG pO2 mmHg VBG HCO3 (22-26) mmol/L VBG O2 Saturation % VBG Base Excess mmol/L Sodium (135-145) mmol/L Potassium (3.3-5.1) mmol/L Chloride (96-108) mmol/L Carbon Dioxide (22-29) mmol/L Anion Gap (12-20) BUN (9-16) mg/dL Creatinine (0.5-1.4) mg/dL Estim Creat Clear Calc Estimated GFR POC Glucose 150 H 176 H (60-115) mg/dL Random Glucose (60-115) mg/dL Calcium (8.4-10.2) mg/dL Total Bilirubin (0.0-1.0) mg/dL AST (5-37) U/L ALT (0-40) U/L Alkaline Phosphatase (39-117) U/L Troponin I High Sens (<3.5-35.0) ng/L Total Protein (6.5-8.0) g/dL Albumin (3.5-5.0) g/dL Urine Color Urine Appearance Urine pH (5.0-9.0) Ur Specific [place] (1.005-1.025) Urine Protein (Neg-Trace) mg/dL Urine Glucose (UA) (Negative) mg/dL Urine Ketones (Negative) mg/dL Urine Blood (Negative) Urine Nitrite (Negative) Ur Leukocyte Esterase (Negative) Urine RBC (0-2) /HPF Urine WBC (0-5) /HPF Ur Squamous Epith Cells (0-2) /HPF Urine Bacteria (None Seen) Hyaline Casts (0-2) /LPF Urine Opiates Screen (Not Detect) Ur Buprenorphine Scrn (Not Detect) ng/mL Ur Oxycodone Screen (Not Detect) ng/mL Urine Methadone Screen (Not Detect) ng/mL Urine Fentanyl Screen (Not Detect) Ur Barbiturates Screen (Not Detect) Ur Phencyclidine Scrn (Not Detect) Ur Amphetamines Screen (Not Detect) U Benzodiazepines Scrn (Not Detect) Urine Cocaine Screen (Not Detect) U Marijuana (THC) Screen (Not Detect) COVID-19 (RICARDO) (Negative) COVID-19 Clin Com Influenza Type A (NEGRO) (Negative) Influenza Type B (NEGRO) (Negative) Influenza A & B Note Independent Interpretation I performed an independent interpretation of an: EKG Critical Care Time Critical Care Time Critical Care Time: Yes Total Critical Care Time: 60 Attestation: I have personally provided critical care time. Time includes review of lab data, radiology results, discussion with consultants, and monitoring for potential decompensation. Intervention performed as documented. Discharge Plan Discharge Clinical Impression: Acute hyperglycemia Patient Disposition: Home, Self-Care Instructions: Diabetic Hyperglycemia (ED) Additional Instructions: Please follow-up with your primary care physician tomorrow. If you have any worsening or new symptoms, please return to the emergency room or call 911 Prescriptions: No Action insulin glargine [Lantus Solostar U-100 Insulin] 100 unit/mL (3 mL) insulin pen 60 unit subcut QPM Qty: 15 1RF atorvastatin [Lipitor] 40 mg tablet 40 mg PO DAILY Qty: 30 0RF metformin 500 mg tablet 500 mg PO BID Qty: 60 0RF valacyclovir 1 gram tablet 1,000 mg PO DAILY Qty: 30 0RF clopidogrel [Plavix] 75 mg tablet 75 mg PO DAILY Qty: 30 0RF quetiapine [Seroquel] 100 mg tablet 100 mg PO BEDTIME Qty: 30 0RF carvedilol 3.125 mg tablet 3.125 mg PO BID Qty: 60 0RF Rx Instructions: must administer with a meal/food fluoxetine 10 mg capsule 10 mg PO DAILY Qty: 30 0RF aspirin 81 mg tablet 81 mg PO DAILY Qty: 30 0RF gabapentin 100 mg capsule 100 mg PO BEDTIME Qty: 30 0RF lisinopril 2.5 mg tablet 2.5 mg PO DAILY Qty: 30 0RF glipizide 5 mg tablet 5 mg PO BID Qty: 60 0RF ezetimibe 10 mg tablet 10 mg PO DAILY Qty: 30 0RF dapagliflozin propanediol [Farxiga] 10 mg tablet 10 mg PO DAILY Qty: 30 0RF Trulicity 1.5 mg/0.5 mL pen injector 1.5 mg subcut QWEEK Qty: 2 0RF insulin lispro 200 unit/mL (3 mL) insulin pen 1 sliding scale dose subcut USEASDIRECTD Qty: 6 0RF Rx Instructions: inject 4 to 14 units three times a day before meals sliding scale sacubitril-valsartan [Entresto] 49-51 mg tablet 1 tab PO BID Qty: 60 0RF Print Language: Urdu
[2025-08-10 00:27] LABS: Appearance Urine Clear; Glucose Urine UA >=1000 mg/dL (Negative); PH 6.0 (5.0-9.0); Specific Gravity - Urine >= 1.030 (1.005-1.025); UMIC TRIGGER UACC YES
[2025-08-10 00:47] LABS: Cannabinoid Screen Urine Not Detected (Not Detect)
[2025-08-10 01:07] LABS: Glucose, Whole Blood 150 mg/dL (60-115)
[2025-08-10 02:00] VITALS: BP 100/61; PULSE 69; RESP 16; TEMP 36.7; O2SAT 98
[2025-08-10 04:00] VITALS: BP 103/69; PULSE 68; RESP 16; TEMP 36.5; O2SAT 98
[2025-08-10 04:05] LABS: Glucose, Whole Blood 176 mg/dL (60-115)
[2025-08-10 05:45] VITALS: BP 103/69; PULSE 68; RESP 16; TEMP 36.5; O2SAT 98
== END 2025-08-10 05:47 | disposition home or self-care (01) ==
PROVIDERS: Emergency Provider Emergency Medicine; PCP Dentist General Practice
DX: E11.65 Type 2 diabetes mellitus with hyperglycemia (principal); Z91.148 Patient's other noncompliance with medication regimen for other reason; Z79.899 Other long term (current) drug therapy
CPT/HCPCS: 36415; 80053; 80307; 81001; 82803; 82947; 84484; 85025; 87502; 87635; 93005; 96361; 96374; 99284; 99285

== ENCOUNTER → 2025-08-09 21:17 | Outpatient (BNV) | payer MEDICAID, SELFPAY | PROVIDERS: Emergency Provider Emergency Medicine; PCP Dentist General Practice; Visit Provider Internal Medicine Cardiovascular Disease | DX: I25.2 Old myocardial infarction (principal); R00.0 Tachycardia, unspecified | CPT/HCPCS: 93010 ==

== ENCOUNTER 2025-08-27 02:56 | Inpatient (IN) | payer MEDICAID, SELFPAY ==
--- OUTSIDE RECORDS SUMMARY | 2019-09-22 22:46 | XMS_ITS | Continuity of Care Document ---
Author Organization [employer] Address [address] [place] [address] Phone Care Team Providers Care Community Health Planning Director Name Role Phone Nursing, Nursing Unavailable Unavailable Allergies, Adverse Reactions, Alerts Substance Reaction Status Criticality No Known Allergies Active No Inform ation Medications Medication Instructions Dosage Effective Dates (start - stop) Status Comments metformin ER 500 mg tablet,extended release 24 hr TAKE 2 TABLETS BY MOUTH TWICE DAILY WITH BREAKFAST AND WITH EVENING MEAL - Active aspirin 81 mg tablet,delayed release TAKE 1 TABLET BY MOUTH ONCE DAILY - Active Zyrtec 10 mg tablet take 1 (10MG) by oral route every day for allergies 10 MG - Active Vitamin D2 50,000 unit capsule take 1 capsule by oral route every week on Monday 12402 UNITS - Active Seroquel 50 mg tablet take 1 tablet by oral route every day 50 MG - Active Seroquel 100 mg tablet take 1 tablet by oral route every evening 100 MG - Active Plavix 75 mg tablet take 1 tablet by oral route every day 75 MG - Active Pen Needle 31 gauge x 5/16 inject by Subcutaneous route every day as directed Not Available - Active E11.65 OneTouch Ultra Blue Test Strip test by subcutaneous route once daily . DX: E11.69 - Active losartan 25 mg tablet take 1 Tablet by oral route every day 25 MG - Active lisinopril 5 mg tablet take 1 tablet by oral route every day 5 MG - Active carvedilol 3.125 mg tablet take 1 tablet by Oral route 2 times every day with food 3.125 MG - Active gabapentin 300 mg capsule take 1 capsule by oral route 2 times every day 300 MG - Active glipizide 10 mg tablet take 1 tablet by oral route 2 times every day before a meal 10 MG - Active Basaglar KayyikPen U-100 Insulin 100 unit/mL (3 mL) subcutaneous inject 24 units by subcutaneous route as per insulin protocol every evening - Active Dx: E11.9 ezetimibe 10 mg tablet TAKE 1 TABLET BY MOUTH ONCE DAILY - Active Lipitor 40 mg tablet take 1 tablet by oral route every day at bedtime 40 MG - Active Augmentin 500 mg-125 mg tablet take 1 tablet by oral route every 12 hours 1.00 tablet - Active tramadol 50 mg tablet take 1 tablet by oral route every 12 hours as needed as needed 50 MG - Active LearneratorTouch Delica Lancets 33 gauge to check blood glucose levels twice daily E11. - Active Humulin R Regular U-100 Insulin 100 unit/mL injection solution inject (0.05UNITS/KG) by SQ route once per prescriber's instructions. Follow sliding scale. Max dose 45 units per day - Active give insulin if BS >200. 201-250-5 units, 251-300-8 units, 301-350 units-12 units, [phone] ts, [phone] ts, [phone] ts..Call MD if BS <60 or >500 nystatin 100,000 unit/gram topical ointment apply by topical route 2 times every day to the affected area(s) 0.00 - Active OneTouch Delica Lancing Device kit to obtain blood glucose levels E11.69 - Active OneTouch UltraMini kit to obtain blood glucose levels - Active Advance Directives Directive Yes / No Effective Date File Name No Information Encounters Encounter Description Practice Location Reason(s) For Visit Diagnoses Date Provider [facility] [address], [address] [facility], [place], [address], [place] tel:[phone] [facility] No Information 9 Nursing Nursing. [address] [facility], [id number] [place], [place], [facility], . tel:[phone] [facility] [address], [address] [place] [address], [facility], tel:[phone] [place] [address] [facility] No Information 9 Lars Riveraet. [address] [place] [address], [facility], . tel:[phone] [facility] [address], [address] [place] [address], [facility], tel:[phone] [place] [address] Based medication refill (chief complaint) Encounter for screening for diabetes mellitusEssential (primary) hypertensionType 2 diabetes mellitus with hyperglycemiaBody mass index (BMI) 35.0-35.9, adult 9 Lars Riveraet. [address] [place] [address], [facility], . tel:[phone] [facility] [address], [address] [place] [address], [facility], tel:[phone] [place] [address] Based medication refill (chief complaint) Encounter for screening for diabetes mellitusVitamin D deficiency, unspecifiedType 2 diabetes mellitus with hyperglycemiaChronic ischemic heart disease, unspecifiedPain in kneeBody mass index (BMI) 37.0-37.9, adult Jan- 9 Lars Riveraet. [address] [place] [address], [facility], [place]. tel:[phone] [facility] [address], [address] [place] [address], [facility], [place] tel:[phone] [place] [address] Based SED (chief complaint) Other asthmaAnxiety disorder, unspecifiedVitamin D deficiency, unspecifiedType 2 diabetes mellitus with hyperglycemiaHearing lossBody mass index (BMI) 35.0-35.9, adult 8 Lars Riveraet. [address] [place] [address], [facility], [place]. tel:[phone] [facility] [address], [address] [place] [address], [facility], [place] tel:[phone] [place] [address] multiple complaints (chief complaint) Encounter for screening for diabetes mellitusChronic ischemic heart disease, unspecifiedMajor depressive disorder, recurrent, unspecifiedType 2 diabetes mellitus with hyperglycemiaBody mass index (BMI) 35.0-35.9, adult 8 [facility]. [address] [place] [address], [facility], . tel:[phone] [facility] [address], [address] [place] [address], [facility], tel:[phone] [place] [address] URI (chief complaint)l eft wrist pain (chief complaint) Encounter for screening for diabetes mellitusPain in left wristIschemic cardiac diseaseOMBody mass index (BMI) 35.0-35.9, adult [address], [facility], . tel:[phone] [facility] [address], [address] [place] [address], [facility], tel:[phone] [place] [address] referral (chief complaint) Encounter for screening for diabetes mellitusLow back pain, unspecified back pain laterality, unspecified chronicity, unspecified whether sciatica presentBody mass index (BMI) 35.0-35.9, adult Sep- [address], [facility], . tel:[phone] [facility] [address], [address] [place] [address], [facility], tel:[phone] [place] [address] restablish care (chief complaint) Acute transmural DE of ant wallIschemic cardiac diseaseHyperlipidemi a, unspecifiedType 2 diabetes mellitus with hyperglycemiaPain in left wristBody mass index (BMI) 36.0-36.9, adult Jul- [address], [facility], [place]. tel:[phone] [facility] [address], [address] [place] [address], [facility], tel:[phone] [address] [place] [address] diabetes (chief complaint)c ough (chief complaint) Type 2 diabetes mellitus with hyperglycemiaEssenti al (primary) hypertensionHyperlip emia, mixedAcute bronchitis, unspecified organismBody mass index (BMI) 29.0-29.9, adult Mar-0 3-201 6 Tonny Pacheco. [address] [place], [place], [facility], . tel:[phone] [facility] [address], [address] [place] [address], [facility], tel:[phone] [place] [address] Based blurred vision (chief complaint) Type 2 diabetes mellitus with hyperglycemiaAnxiety disorder, unspecified Dec-0 2-201 5 Lars Salazar. [address] [place] [address], [facility], [place]. tel:[phone] [facility] [address], [address] [place] [address], [facility], tel:[phone] [place] [address] Based back pain (chief complaint) AnxietyHypertensionD M II Uncontrolled (+v58.67 If Insulin)Back symptoms Sep-2 2-201 5 Sousa Marie. [address] [place] [address], [facility], [place]. tel:[phone] [facility] [address], [address] [place] [address], [facility], [place] tel:[phone] [facility] Based med refill (chief complaint) DM II Uncontrolled (+v58.67 If Insulin)Erectile dysfunctionHypertens ionAnxiety Sep-0 2-201 5 Lars Salazar. [address] [place] [address], [facility], [place]. tel:[phone] [facility] [address], [address] [place] [address], [facility], [place] tel:[phone] [facility] Based recall letter (chief complaint) HyperglycemiaLIPOID METABOL DIS NOSDM II Uncontrolled (+v58.67 If Insulin) Mar-0 9-201 5 Leobardo Lenz. Emiliana Silva, [id number] [address] [place] [address], [address], [place]. tel:[phone] [facility] [address], [address] [place] [address], [facility], tel:[phone] [address] [place] [address] Based medication refill (chief complaint) DM II Uncontrolled (+v58.67 If Insulin)Otitis mediaCellulitis of nose 5 Leobardo Lenz. [address], [id number], [place], [address], . tel:[phone] [facility] [address], [address] [place] [address], [facility], tel:[phone] [facility] (chief complaint) DM II Uncontrolled (+v58.67 If Insulin) 4 Raudel Mcnkight. [address] [place], [id number] [address] [place] [address], [address], [place]. tel:[phone] [facility] [address], [address] [place] [address], [facility], tel:[phone] [place] [address] Based diabetes (chief complaint) DM II Uncontrolled (+v58.67 If Insulin)Weakness generalizedHypertens ion Aug- 4 Leobardo Lenz. [address], [id number] [place], [address], . tel:[phone] [facility] [address], [address] [place] [address], [facility], tel:[phone] [place] [address] diabetes (chief complaint) DM II Uncontrolled (+v58.67 If Insulin) 4 Sommer Mobley. [address] [facility], [id number] [place], [address], [place]. tel:[phone] [facility] [address], [address] [place] [address], [facility], [place] tel:[phone] [facility] (chief complaint) DM II Uncontrolled (+v58.67 If Insulin) 4 Raudel Mcknight. [address] [place], [id number] [place], [address], [place]. tel:[phone] [facility] [address], [address] [place] [address], [address], [place] tel:[phone] [facility] diabetes (chief complaint) DM II Uncontrolled (+v58.67 If Insulin)Cellulitis Feb- 4 Antonio Sanchez. [address] [facility], [id number] [place], [address], . [phone] [facility] [address], [address] [place] [address], [address], [place] tel:[phone] [place] [address] medication refills (chief complaint)d iabetes (chief complaint) DM II Controlled (+v58.67 If Insulin)LIPOID METABOL DIS NOSErectile dysfunction Dec- 3 Leobardo Lenz. Emiliana Silva, [id number] [place], [address], [place]. [phone] [place] [address], [address] [place] [address], [address], [place] tel:[phone] [place] [address] aches (chief complaint) Joint painVitamin D deficiency Sep-3 3 Tristin Mendez. [address] Brittnee Mcgee, [id number] [address] [place] [address], [address], [place]. tel:[phone] [place] [address], [address] [place] [address], [address], [place] tel:[phone] [facility] (chief complaint) DM II Controlled (+v58.67 If Insulin) Jul- 3 Arnie Jaimes. [address] [place] [address], [id number] [place], [id number], [place]. tel:[phone] [facility] [address], [address] [place] [address], [address], [place] tel:[phone] [facility] establish care (chief complaint) DiabetesLipid disorderGERD (gastroesophageal reflux disease)Mental disorder Sep- 3 Tristin Mendez. [address] Brittnee Mcgee, [id number] [address] [place] [address], [address], . tel:[phone] Family History Family Member Type Diagnosis Age At Onset Mother Problem (finding) asthma Mother Problem (finding) Diabetes mellitus Father Problem (finding) Diabetes mellitus Payers Payer name Insurance type Covered democrat ID Thelma petersen(s) [facility] CI [id number] Social History Type Description Quantity Date Captured Comments Sex Male Smoking Status No Information Sexual Orientation Straight or heterosexual Jul Gender Identity Male Chief Complaint And Reason For Visit No Information Plan Of Treatment Date Type Action Status Goal Tobacco cessation counseling completed Goal Tobacco cessation counseling completed Goal Tobacco cessation counseling completed Goal Tobacco cessation counseling completed Goal Tobacco cessation counseling completed Goal Tobacco cessation counseling completed Referral Ordered: Frantz Tarango MD -Otolaryngology (related to Hearing loss) ordered Referral Referred To: Frantz Tarango MD [address] [place], [address] [phone] Ordered: Referrals: Otolaryngology. Frantz Tarango MD. Evaluate and treat Appointment date/timeframe: 6 Months ordered Referral Ordered: [facility] -Physical Medicine and Rehabilitation (related to Pain in left wrist) ordered Referral Referred To: [address], [address] [phone] Ordered: Referrals: Physical Medicine and Rehabilitation. [facility]. Evaluate and treat Appointment date/timeframe: 6 Months ordered Referral Ordered: Jarrod Yeh MD -Pain Medicine (related to Lumbago NOS) ordered Referral Referred To: Jarrod Yeh MD [address] [place], [address] [phone] Ordered: Referrals: Pain Medicine. Jarrod Yeh MD. Evaluate and treat Appointment date/timeframe: 6 Months ordered Referral Ordered: [facility] -Orthopedic Surgery (related to Pain in left wrist) ordered Referral Referred To: [facility] [address] [place] [address], [address] [phone] Ordered: Referrals: Orthopedic Surgery. [facility]. Follow-up and treat Appointment date/timeframe: 6 Months ordered Referral Referred To: ([facility]) [facility] [address], [address] [phone] Ordered: Referrals: Cardiology. ([facility] . Follow-up and treat Appointment date/timeframe: 6 Months ordered Referral Ordered: Dental Exam (related to diabetes mellitus) ordered Referral Ordered: [facility] (related to diabetes mellitus) ordered Referral Ordered: [facility] Ophthalmology. ordered Referral Ordered: [facility] Ophthalmology. Diabetic Education. ordered Referral Ordered: [facility] Ophthalmology. Diabetic Education. Podiatry. ordered Referral Ordered: Podiatry. ordered Referral Ordered: Ophthalmology. ordered Referral Ordered: Psychiatry. ordered Referral Ordered: Diabetic Education. ordered Future Order: Lab Order CBC w/di ff ([id number]), Ordered on: Ordered Future Order: Lab Order Hemoglob in A1c ([id number]), Ordered on: Ordered Future Order: Lab Order Lipid Pa herb ([id number]), Ordered on: Ordered Future Order: Lab Order Vitamin D, 25-Hydroxy ([id number]), Ordered on: Ordered Future Order: Lab Order UA w/taylor ro ([id number]), Ordered on: Ordered Future Order: Lab Order TSH ([id number]), Ordered on: Ordered Future Order: Lab Order Microalb /Creat Ratio, Randm Ur ([id number]), Ordered on: Ordered Future Order: Lab Order CMP ([id number]), Ordered on: Ordered Future Order: Radiology Order Kn ee X-ray; Complete (4+ views) ([id number]), Ordered on: Ordered Future Order: Lab Order CBC w/di ff ([id number]), Ordered on: Ordered Future Order: Lab Order CMP ([id number]), Ordered on: Ordered Future Order: Lab Order Hemoglob in A1c ([id number]), Ordered on: Ordered Future Order: Lab Order Lipid Pa herb ([id number]), Ordered on: Ordered Future Order: Lab Order Vitamin D, 25-Hydroxy ([id number]), Ordered on: Ordered Future Order: Lab Order TSH ([id number]), Ordered on: Ordered Future Order: Lab Order UA w/taylor ro ([id number]), Ordered on: Ordered Future Order: Lab Order CBC w/di ff ([id number]), Ordered on: Ordered Future Order: Lab Order CMP ([id number]), Ordered on: Ordered Future Order: Lab Order Chlamydi a/GC Amplification ([id number]), Ordered on: Ordered Future Order: Lab Order Hemoglob in A1c ([id number]), Ordered on: Ordered Future Order: Lab Order Hepatic Function Panel ([id number]), Ordered on: Ordered Future Order: Lab Order Hepatiti s Panel ([id number]), Ordered on: Ordered Future Order: Lab Order Lyme, We shen Blot, Serum ([id number]), Ordered on: Ordered Future Order: Lab Order Lipid Pa herb ([id number]), Ordered on: Ordered Future Order: Lab Order HIV 1/0/ 2 Ag/Ab With Reflex ([id number]), Ordered on: Ordered Future Order: Lab Order TSH ([id number]), Ordered on: Ordered Future Order: Lab Order Vitamin D, 25-Hydroxy ([id number]), Ordered on: Ordered Future Order: Lab Order Microalb /Creat Ratio, Randm Ur ([id number]), Ordered on: Ordered Future Order: Radiology Order Alisa mbar Spine X-ray (including sacrum) (Complete, with bending views) ([id number]), Ordered on: Ordered Future Order: Radiology Order Alisa mbar Spine X-ray (including sacrum) (Complete, with bending views) ([id number]), Ordered on: Ordered Future Order: Lab Order CBC w/di ff ([id number]), Ordered on: Ordered Future Order: Lab Order CMP ([id number]), Ordered on: Ordered Future Order: Lab Order Hemoglob in A1c ([id number]), Ordered on: Ordered Future Order: Lab Order Hepatiti s Panel ([id number]), Ordered on: Ordered Future Order: Lab Order Microalb /Creat Ratio, Rand Ur ([id number]), Ordered on: Ordered Future Order: Lab Order Lipid Pa herb ([id number]), Ordered on: Ordered Future Order: Lab Order Vitamin D, 25-Hydroxy ([id number]), Ordered on: Ordered Future Order: Lab Order TSH ([id number]), Ordered on: Ordered Future Order: Lab Order Thyroxin e (T4) ([id number]), Ordered on: Ordered Future Order: Lab Order UA w/taylor ro ([id number]), Ordered on: Ordered Future Order: Lab Order CMP ([id number]), Ordered on: Ordered Future Order: Lab Order CBC w/di ff ([id number]), Ordered on: Ordered Future Order: Lab Order Hemoglob in A1c ([id number]), Ordered on: Ordered Future Order: Lab Order Lipid Pa herb ([id number]), Ordered on: Ordered Future Order: Lab Order Microalb /Creat Ratio, Randm Ur ([id number]), Ordered on: Ordered Future Order: Lab Order UA w/atylor ro ([id number]), Ordered on: Ordered Future Order: Lab Order CMP ([id number]), Ordered on: Ordered Future Order: Lab Order Microalb /Creat Ratio, Randm Ur ([id number]), Ordered on: Ordered Future Order: Lab Order Lipid Pa herb ([id number]), Ordered on: Ordered Future Order: Lab Order UA w/taylor ro ([id number]), Ordered on: Ordered Future Order: Lab Order CBC w/di ff ([id number]), Ordered on: Ordered Future Order: Lab Order CBC w/di ff ([id number]), Ordered on: Ordered Future Order: Lab Order CMP ([id number]), Ordered on: Ordered Future Order: Lab Order HDL Chol esterol ([id number]), Ordered on: Ordered Future Order: Lab Order Hemoglob in A1c ([id number]), Ordered on: Ordered Future Order: Lab Order Hepatiti s Panel ([id number]), Ordered on: Ordered Future Order: Lab Order Hepatic Function Panel ([id number]), Ordered on: Ordered Future Order: Lab Order Lipid Pa herb ([id number]), Ordered on: Ordered Future Order: Lab Order Microalb /Creat Ratio, Randm Ur ([id number]), Ordered on: Ordered Future Order: Lab Order TSH ([id number]), Ordered on: Ordered Future Order: Lab Order Vitamin D, 25-Hydroxy ([id number]), Ordered on: Ordered Future Order: Lab Order RPR ([id number]), Ordered on: Ordered Future Order: Lab Order HIV 1/0/ 2 Ab Preliminary Test w/ ref to Western Blot Confirmation ([id number]), Ordered on: Ordered History Of Present Illness Encounter Date Complaint History Of Prese nt Illness medication refill Pt here for me d refill and right ear pain. Pt states he has not been going to any specialists. He is also requesting lab slip do he can have results for cardiology. medication refill Pt here for me d refill. Pt states he is doing well except for having numbness in hands and upper extremities. SED Pt here for SED visit. Pt requires nebulizer machine. Duo neb given in office. medrol dose pack also prescribed and cough syrup refilled. Pt states his anxiety has worsened and requires an increase in his Seroquel. Blood glucose level is 299 in office. Increasing Glipizide to 10mg twice daily from 5mg BID. multiple complaints Pt here for multiple complaints. Pt states he has pain in penis for 2 weeks, right ear pain, and increased depression with emotional disturbance. Pt states his girlfriend has had a yeast infection and he developed itching and pain on his penis. His right ear is an isolated complaint. Pt has a history of depression and he states he was taking Seroquel [facility]. He states Seroquel was effective in higher doses at that time. left wrist pain Onset: 6 months ago. Location: left wrist. The pain is relieved by brace/splint. Associated symptoms include numbness and weakness. Hand Dominance: right. URI The patient pres ents with cough, earache, fatigue, fever, generalized weakness, headache, nausea and pharyngitis. referral pt seen for refe rral restablish care Pt here states janeth tijerina has been in [facility] and has had a STEMI since he was last seen here in the office. He requests to be reestablished and referrals to specialists. He has a defibulator implanted and has pain and numbness in his left forearm/wrist-recent xray was negative. He is wearing a supportive brace on his wrist during visit. cough Onset: 3 days ag o. The patient describes the cough as hacking and productive (of yellow sputum). It occurs persistently. The problem has become gradually worse. Context: smoker. Symptoms are aggravated by everything. Relieving factors include OTC cough syrup. Associated symptoms include cough, dyspnea, fatigue, nasal congestion and post-nasal drainage. Pertinent negatives include chills, dyspnea on exertion, epistaxis, fever, heartburn, hemoptysis, hoarseness, night sweats, pleuritic pain, rhinitis, rhinorrhea, sinus pressure, sore throat, weight loss and wheezing. diabetes Risk factors inc lude family history of diabetes mellitus, family history of hypertension, race (/ Prydeinig) and male gender. Risk factors excluded are age > 50 years and sedentary lifestyle. Patient is adhering to diet and exercise recommendations for their HTN . Patient is not adhering to medication and follow-up recommendations for their HTN . Patient is adhering to diet and exercise recommendations for their DM . Patient is not adhering to medication and follow-up recommendations for their DM . Pertinent negatives include blurred vision, chest pain, confusion, diaphoresis, diarrhea, edema, foot ulcer, frequent infections, headache, hematuria, hypoglycemic episodes, impotence / erectile dysfunction, increased fatigue, nausea, palpitations, nocturia, polydipsia, polyuria, shortness of breath, slow healing, transient weakness, tremor, weight gain, weight loss and vomiting. Additional information: has not been taking meds,in and out [facility] ,currently on [id number] at 13,RBS 353, says just filled meds yesturday and started taking it. blurred vision pt is here for b lurred vision. Pt's blood sugar is 552. Pt states he has been taking his medications as prescribed. Pt states he has been under extreme stress with partner issues and two of his children requiring surgery within the next week. back pain pt here to discu ss back pain issues. He also has DM2. His BS in the office is 180. His BP is 124/80 today and well controlled. med refill pt here for med refill. Medical history includes anxiety, HTN, and DM2. He states he does not always take his medications as prescribed. Last A1C is 14 from November 2014 recall letter He states the sy mptoms are acute. Elevated blood sugar, lipids, ua >1,0000, pt verbalizes eats rice and pasta states I'm [place] pt verbalizes takes all diabetic medications and took them prior to office visit today. NFBS elavted in 400's medication refill He states the symptoms are acute. needs refills on diabtes meds. has no insurance and did not get labs done. Due for hgba1c. NFBS is 552 today. Ate before coming and has not been compliant with medications. Saw foot doc, has not seen opthamology. Instructions Date Instruction Additional Infor yeimi referral given Related to Low b ack pain, unspecified back pain laterality, unspecified chronicity, unspecified whether sciatica present continue medications complete lab slip RTO to office Related to Type 2 diabetes mellitus with hyperglycemia continue medications complete lab slip RTO to office Related to Essential (primary) hypertension xray slip givenRTO to discuss re sults Related to Pain in knee follow up with cardiology Relate d to Chronic ischemic heart disease, unspecified med refilllab slip g ivenRTO to discuss results Related to Vitamin D deficiency, unspecified med refill Related to Type 2 diabetes mellitus with hyperglycemia refer to ENT Related to Heari ng loss increased Glipizide to 10mg alfonso y Related to Type 2 diabetes mellitus with hyperglycemia med refill Related to Vitam in D deficiency, unspecified increased Seroquel t o 50mg daily and 100mg at night Related to Anxiety disorder, unspecified Nebulizer machine prescribedmed refill Related to Other asthma follow up with chet Culp to discuss results Related to Chronic ischemic heart disease, unspecified med refill Related to Type 2 diabetes mellitus with hyperglycemia start SeroquelRTO in 4-6 weeks for follow up Related to Major depressive disorder, recurrent, unspecified Augmentin, sudafed, medrol dose pack, tessalon perles and promethazine prescribed Related to OM refer to physical therapy Relate d to Pain in left wrist continue to follow cardiology Re lated to Ischemic cardiac disease xray negativerefer to orthopedic Related to Pain in left wrist history of DE with d efibulator placementRefer to cardiology Related to Acute transmural DE of ant wall refer to cardiologymed refill Re lated to Ischemic cardiac disease med refill Related to Type 2 diabetes mellitus with hyperglycemia med refill Related to Hyper lipidemia, unspecified Monitor Fasting blood sugar alfonso y. Related to Type 2 diabetes mellitus with hyperglycemia Low cholesterol, low fat, low sodium , no concentrated sweets, weight reduction diet. Related to Essential (primary) hypertension Low sodium diet Related to Essen tial (primary) hypertension Please keep a log of you blood sugars and bring with you at each visit. Related to Type 2 diabetes mellitus with hyperglycemia 1800 ADA calorie diet Related to Type 2 diabetes mellitus with hyperglycemia Follow up with gurwinder kaur educator, Cici Noel. Related to Type 2 diabetes mellitus with hyperglycemia Avoid sweetened drin ks like Soda, ice tea, and sugary sports drinks. Related to Type 2 diabetes mellitus with hyperglycemia Please return to [place] in 4 weeks to have BP rechecked. Related to Essential (primary) hypertension 2GM sodium diet/ restrict salt i ntake. Related to Essential (primary) hypertension Take medications as Prescribed. Related to Type 2 diabetes mellitus with hyperglycemia Take medications as ordered daily, do not skip doses. Related to Essential (primary) hypertension Avoid salty snacks, lunch meats, soups, and other high sodium foods. Related to Essential (primary) hypertension Diet and exercise discussed Rela anitha to Essential (primary) hypertension Avoid foods high in cholesterol. Related to Hyperlipemia, mixed Follow a low fat low cholesterol diet. Related to Hyperlipemia, Excercise regularly, walking daily is a good start. Related to Hyperlipemia, Eat leaner cuts of r ed meat, and replace red meat with fish and chicken. Related to Hyperlipemia, Diet and exercise discussed Rela anitha to Hyperlipemia, mixed Weight loss recommended Related to Hyperlipemia, mixed Take cholesterol med ication at night before bed. Related to Hyperlipemia, Take antibiotics as prescribed, take all medications, do not stop them even if you are feeling better. Related to Acute bronchitis, unspecified organism Increase intake of v egetables and fresh fruits. Related to Type 2 diabetes mellitus with hyperglycemia Make an appointment for an eye e william. Related to Type 2 diabetes mellitus with hyperglycemia Stressed Compliance Related to T ype 2 diabetes mellitus with hyperglycemia Diet and exercise discussed Rela anitha to Type 2 diabetes mellitus with hyperglycemia Supportive Care Related to Acute bronchitis, unspecified organism Take medications as prescribed, do not skip doses. Related to Acute bronchitis, unspecified organism Force Fluids Related to Acute bronchitis, unspecified organism blood sugar is 552. He received 14 units of regular insulin in officeRecommended pt to go or to be taken to the hospital but pt refusedHis child has an appointment with two hours [place] states he will go [place].Increased Levemir to 22 units dailyRefilled all other medsPt refused to stay for blood sugar recheck Related to Type 2 diabetes mellitus with hyperglycemia Xanax refilledPt enc ouraged to try to destress to help bring down blood sugar Related to Anxiety disorder, unspecified Lumbar xray orderedUltram prescr ibed Related to Back symptoms increased Glyburide to 15mg alfonso y Related to DM II Uncontrolled (+v58.67 If Insulin) BP is controlled-124/80 Related to Hypertension refer to Complete Ca re CounselingXanax was precribed in last visitPt has not tried them yet Related to Anxiety Xanax prescribed-use when anxious only as needed Related to Anxiety Levitra prescribed as needed use Related to Erectile dysfunction BP is 116/64BP is we ll controlledMeds refilled Related to Hypertension LAb slip given. RTO to review labs Blood sugar is 226 in the officeTake Levemir while at home once dailyMeds refilled Related to DM II Uncontrolled (+v58.67 If Insulin) start Levemir as pre scribedInstructions on insulin admionstartion given with return demonstrationRTO 2 weeks for fu NFBSRTO 3 months for next hgba1c Related to DM II Uncontrolled (+v58.67 If Insulin) No insurance--needs inexpensive--take lovastatin as prescribed Related to LIPOID METABOL DIS NOS pt given 10 units of regular insulin todayreeducated on dietary modificationsinsulin added to oral diabetic medicationstake insulin at nightappointmet to see dieticianinstructed to see opthamology Related to Hyperglycemia abx as prescribed RTO one week f or fu Related to Cellulitis of nose refills sentReinforc ed need for complaince and education for associated damage of uncontrolled DMGo to ED for management of [id number] untis regular insulin given now left upper armget Hgb A![facility] officefollow up with podiatry and opthmaology as discussed Related to DM II Uncontrolled (+v58.67 If Insulin) abx as prescribed Related to Lani tis media Exercise for 30 patricia alex, 5x weekly as tolerated Call if symptoms persist Related to Joint pain Order consults Related to Joint pain Exercise for 30 patricia alex, 5x weekly as tolerated Order labs/studies Related to Di abetes Review medication side effects R elated to Diabetes Prescribe medications Related to Diabetes Order consults Related to Diabe alex Exercise for 30 patricia alex, 5x weekly as tolerated Assessments Type Assessment Date No Information
[2025-08-27] VITALS (17 sets, daily range): BP systolic 71–107; BP diastolic 46–69; PULSE 65–87; RESP 12–18; TEMP 36.3–36.9; O2SAT 94–99; BMI 28.2
--- NOTE | 2025-08-27 | ECG_ITS ---
Test Reason : WEAKNESS Blood Pressure : */* mmHG Vent. Rate : 79 BPM Atrial Rate : 79 BPM P-R Int : 146 ms QRS Dur : 100 ms QT Int : 424 ms P-R-T Axes : 56 -26 11 degrees QTcB Int : 486 ms Normal sinus rhythm Anteroseptal infarct (cited on or before 15-Jul-2025) Abnormal ECG When compared with ECG of 09-Aug-2025 21:17, Nonspecific T wave abnormality now evident in Inferior leads Referred By: Generic ED Physician Electronically Signed By: Kulwant Dow
[2025-08-27 03:33] LABS: Glucose, Whole Blood 397 mg/dL (60-115)
[2025-08-27 03:35] LABS: Hematocrit 43.1 % (42.0-52.0); Hemoglobin 15.0 g/dl (14.0-18.0); Imm Gran Abs Auto 0.03 X10*3/uL (0.00-0.03); Imm Gran Pct Auto 0.3 % (0.0-0.4); Lymphocytes Absolute Auto 2.0 X10*3/uL (1.2-4.9); MANUAL DIFF FLAG NO; Mean Corpuscular HGB Conc 34.8 g/dl (31.0-36.0); Mean Corpuscular Hemoglobin 30.3 pg (27.0-33.0); Mean Corpuscular Volume 87.1 fL (80.0-98.0); NRBC Abs Auto 0.000 X10*3/uL (0.0-0.012); NRBC Pct Auto 0.0 /100WBC (0.0-0.2); Platelet Count 263 X10*3/uL (160-400); Red Blood Count 4.95 X10*6/uL (4.60-5.80); White Blood Count 11.0 X10*3/uL (4.8-10.8)
--- NOTE | 2025-08-27 03:45 | PC.NURSE ---
Assumed care of pt, presents with generalized weakness an numbness to the left side, no facial droop, equal grasp strength, PERRLA, pt states he feels cramps in his thighs and calf, aaox4, on arrival pt is hypotensive at 70/40's, pt denies drug use, bilateral 18g IV's placed in the forearms, pt very somnolent during assessment and at times snoring, MD is aware,
[2025-08-27 03:52] LABS: Anion Gap 19 (12-20); Blood Urea Nitrogen 28 mg/dL (9-16); Calcium 9.7 mg/dL (8.4-10.2); Carbon Dioxide 22 mmol/L (22-29); Chloride 97 mmol/L (96-108); Creatinine Clr Calc Pharmacy 63.0; Estimated Glomerular Filt Rate 49; Magnesium 2.2 mg/dL (1.6-2.6); Potassium 4.1 mmol/L (3.3-5.1); Sodium 134 mmol/L (135-145)
[2025-08-27 03:57] LABS: NT Pro B Type Natriuretic Pept 855.3 pg/mL (<300); Troponin-I High Sensitivity 44.6 ng/L (<3.5-35.0)
[2025-08-27 04:31] LABS: Resp Syncy Virus RNA Qual PCR NEGATIVE (Negative); SARS COV2 PCR INHOUSE NEGATIVE (Negative)
[2025-08-27 04:44] LABS: Venous Blood Gas Refer to POC result
[2025-08-27 04:50] LABS: VBG HCO3 22 mmol/L (22-26); VBG O2 % Saturation 99.0 %
[2025-08-27 05:54] LABS: Reflex Lactate? Lactic Acid Added
--- OUTSIDE RECORDS SUMMARY | 2025-08-27 06:33 | XMS_ITS | Clinical Summary ---
Author Organization [employer] Address [address] [facility] [address] [place] [address] Care Team Providers Care Leak Inspector Name Role Phone Unavailable Primary Care Provider Unavailabl e Encounters Date Type Department Care Team Description 06/03/2025 Population Health Risk Score [facility] ([facility]) Department [address] [id number] Provider, Population Health Generic from [...]
--- OUTSIDE RECORDS SUMMARY | 2025-08-27 06:33 | XMS_ITS | Clinical Summary ---
Author Organization [facility] Address [address] [place] [address] Care Team Providers Care Forest Ranger Name Role Phone Alyson England PA-C Primary Care Provider [phone] Source Comments PLEASE NOTE, if this patient [...] 10/02/20 23 Active flash glucose scanning reader (VI[place]OST[place] AMANDA 2 READER) miscIndications:T ype 2 diabetes mellitus without complication, with long-term current use of insulin 1 Box by miscellaneous route 3 (three) times daily 1 Each 1 10/30/20 Active blood sugar diagnostic strips Use to [...] complication, with long-term current use of insulin USE TO INJECT INSULIN 4 TIMES DAILY E11.9 200 Each 3 05/03/20 24 Active carvediloL (COREG) 3.125 mg tablet TAKE 1 TABLET BY MOUTH TWICE A DAY WITH FOOD 180 Tablet 1 06/23/20 24 Active QUEtiapine (SEROQUEL) 200 mg tabletIndications :Bipolar 2 disorder, major depressive episode,Moderate episode of recurrent major depressive disorder Take 1 Tablet by mouth nightly at bedtime for 90 days 30 Tablet 2 07/17/20 24 Active flash glucose sensor (FREESTYLE AMANDA 2 SENSOR) kit Apply sensor to back of upper arm and change every 14 days. Use to test blood glucose at least 3 times daily. 2 Kit 08/13/20 Active DULoxetine (CYMBALTA) [address] capsuleIndication s:Moderate episode of recurrent major depressive disorder,Anxiety TAKE ONE CAPSULE BY MOUTH EVERY DAY FOR 180 DAYS 30 Capsule 08/30/20 24 Active ENTRESTO 49-51 mg tabIndications:AI CD (automatic cardioverter/defi brillator) present,Heart failure, unspecified HF chronicity, unspecified heart failure type TAKE ONE TABLET BY MOUTH TWICE DAILY 60 Tablet 2 09/02/20 24 Active metFORMIN XR (GLUCOPHAGE-XR) 500 mg 24 hr tabletIndications :Type 2 diabetes mellitus with hyperglycemia, with long-term current use of insulin Take 1 Tablet by mouth 2 (two) [...] complication, with long-term current use of insulin Use Lispro 15 units with breakfast and lunch and 20 units with dinner 15 mL 3 11/16/19 25 Active dulaglutide (TRULICITY) 3 mg/0.5 mL pen injectorIndicatio ns:Type 2 diabetes mellitus with hyperglycemia, with long-term current use of insulin Inject 3 mg into the skin once a week 2 mL 2 11/18/19 25 Active clopidogreL (PLAVIX) 75 mg tablet TAKE ONE TABLET BY MOUTH everyday 90 Tablet 11/22/19 25 Active glipiZIDE (GLUCOTROL) 10 mg tabletIndications :Type 2 diabetes mellitus with hyperglycemia, with long-term current use of insulin TAKE ONE TABLET BY MOUTH ONCE DAILY [...] hyperglycemia, with long-term current use of insulin Inject 65 Units into the skin every morning for 180 days 15 mL 3 01/06/20 25 Active Active Problems Problem Noted Date Diagnosed Date Tobacco use disorder 07/05/2024 PTSD (post-traumatic stress disorder) 11/23/2023 Bipolar 2 disorder, major depressive episode 09/2024 Class 1 obesity due to exces s calories with serious comorbidity and body mass index (BMI) of 31.0 to 31.9 in adult 10/30/2023 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 10/02/2023 Overview (10/02/2023): S/p DC 2016, subsequent PCI x 4 (on 4 different occasions) Hypercholesterolemia 10/02/2023 Essential hypertension 10/02/2023 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, with long-term current use of insulin 10/02/2023 Ischemic cardiomyopathy 10/02/2023 Overview (10/02/2023): S/p [...] 2019 Fecal DNA 2019 Flexible Sigmoidoscopy 2019 Dental Prophy 08/02/2024 01/29/2024 Anxiety Screening 10/09/2024 [...] 07/05/2024, 10/02/2023 Retinopathy Screening 07/09/2025 07/09/2024, 024 [id number] ( season) 2025 Imm-Influenza (#1) 2025 10/02/2023 Tobacco Cessation Counseling (#1) 01/06/2026 024, 10/30/2023 Dental FMX/Pano 01/30/2029 01/29/2024 Imm-DTaP/Tdap/Td (2 - Td or Tdap) 10/02/2033 023 HIV Screening Completed 10/02/2023 Hepatitis C Screening Completed 10/02/2023 Alcohol and Drug Screen Completed 01/06/20 25, 12/11/2023, 05/31/2023 Imm-Hepatitis B Completed 01/06/2025, 07/05/2024 Imm-Zoster, Recombinant Completed 01/06/2025, 07/05 Procedures Procedure Name Priority Date/Time Associated Diagnosis Comments IMAGING SCANNED DOCUMENT 07/15/2025 3:00 AM EDT IMAGING SCANNED DOCUMENT 07/15/2025 3:00 AM EDT GLYCOSYLATED (A1C) DEVICE (CLIA WAIVED) POCT Routine 11/15/2024 2:50 PM EST Type 2 diabetes mellitus with 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, with long-term current use of insulin ([facility]) EYE EXAM 07/09/2024 3:00 AM EDT COMPREHENSIVE METABOLIC PANEL Routine 07/05/2024 4:53 PM EDT Annual physical exam Type 2 diabetes mellitus with hyperglycemia, with long-term current use of insulin ([facility]) Essential hypertension LIPIDS W RFLX TO DIRECT LDL Routine 07/05/2024 4:53 PM EDT Annual physical exam Type 2 diabetes mellitus with hyperglycemia, with long-term current use of insulin ([facility]) Essential hypertension MICROALBUMIN/CREATIN INE RATIO, URINE, RANDOM Routine 03/26/2024 3:55 PM EDT Type 2 diabetes mellitus with hyperglycemia, with long-term current use of insulin ([facility]) INTRAORAL - COMP SERIES OF RADIOGRAPHIC IMAGES [...] Recently Relevant to Health Maintenance Results * IMAGING SCANNED DOCUMENT (07/15/2025 3:00 AM EDT) Only the most recent of2 resultswithin the time period is included. 07/15/2025 3:00 AM EDT Alyson England PA-C SCAN IMAGING Final Result * (ABNORMAL) GLYCOSYLATED (A1C) DEVICE (CLIA WAIVED) POCT (11/15/2024 2:50 PM EST) HGB A1C 11.6(A) 4.2 - 6.5 % [facility]- BACK OFFICE POCT Capillary Blood Blood / Unknown 2:50 PM EST Hill Puri PharmD LAB - BLOOD DRAW Final Resu lt [facility]- BACK OFFICE POCT * EYE EXAM (07/09/2024 3:00 AM EDT) 07/09/2024 3:00 AM EDT Alyson Egnland PA-C OTHER Edited Resul t - Final * (ABNORMAL) LIPIDS W RFLX TO DIRECT LDL (07/05/2024 4:53 PM EDT) Pathologist [facility] CHOLESTEROL, TOTAL 171 <200 mg/dL [facility] HDL CHOLESTEROL 44 > OR = 40 mg/dL [facility] TRIGLYCERIDES 116 <150 mg/dL [facility] LDL-CHOLESTEROL 106(H) 99 mg/dL (calc) [facility] Comment: Reference range: <100 Desirable range <100 mg/dL for primary prevention; <70 mg/dL for patients with CHD or diabetic patients with > or = 2 CHD risk factors. LDL-C is now calculated using the Luis E calculation, which is a validated novel method providing better accuracy than the Friedewald equation in the estimation of LDL-C. Jose Alberto SS et al. BENITA. 2013;310(19): 7370-2311 (http://education.Ineda Systems/faq/JNP042) CHOL/HDLC RATIO 3.9 <5.0 (calc) [facility] NON-HDL CHOLESTEROL 127 <130 mg/dL (calc) [facility] Comment: For patients with diabetes plus 1 major ASCVD risk factor, treating to a non-HDL-C goal of <100 mg/dL (LDL-C of <70 mg/dL) is considered a therapeutic option. Blood Blood / Unknown 07/05/2024 4 :53 PM EDT 07/05/2024 4:54 PM EDT Narrative [facility] - 07/06/2024 3:51 AM EDT FASTING:NO us Alyson England PA-C LAB - BLOOD DRAW Final Resul t [facility] [address] [address], [facility] [address] [address] * (ABNORMAL) COMPREHENSIVE METABOLIC PANEL (07/05/2024 4:53 PM EDT) [facility] GLUCOSE 227(H) 65 - 139 mg/dL [facility] Comment: Non-fasting reference interval UREA NITROGEN (BUN) 17 7 - 25 mg/dL [facility] CREATININE (blood) 0.89 0.70 - 1.30 mg/dL [facility] EGFR 104 > OR = 60 mL/min/1. 73m2 [facility] BUN/CREATININE RATIO SEE NOTE: [facility] Comment: Not Reported: BUN and Creatinine are within reference range. SODIUM 135 135 - 146 mmol/L [facility] POTASSIUM 4.4 3.5 - 5.3 mmol/L [facility] CHLORIDE 101 98 - 110 mmol/L [facility] CARBON DIOXIDE 29 20 - 32 mmol/L [facility] CALCIUM 9.5 8.6 - 10.3 mg/dL [facility] PROTEIN, TOTAL 7.2 6.1 - 8.1 g/dL [facility] ALBUMIN 4.4 3.6 - 5.1 g/dL [facility] GLOBULIN 2.8 1.9 - 3.7 g/dL (calc) [facility] ALBUMIN/GLOBULI N RATIO 1.6 1.0 - 2.5 (calc) [facility] BILIRUBIN, TOTAL 0.7 0.2 - 1.2 mg/dL [facility] ALKALINE PHOSPHATASE 74 35 - 144 U/L [facility] AST 16 10 - 35 U/L [facility] ALT 29 9 - 46 U/L [facility] Blood Blood / Unknown 07/05/2024 4 :53 PM EDT 07/05/2024 4:54 PM EDT Narrative [facility] - 07/06/2024 3:51 AM EDT FASTING:NO Alyson England PA-C LAB - BLOOD DRAW Final Resul t [facility] [address] [address], [facility] [address] [place] [address] * MICROALBUMIN/CREATININE RATIO, URINE, RANDOM (03/26/2024 3:55 PM EDT) CREATININE, RANDOM URINE 147 20 - 320 mg/dL [facility] MICROALBUMIN 1.2 mg/dL [facility] Comment: Reference Range Not established MICROALBUMIN/CREA TININE RATIO, RANDOM URINE 8 <30 mg/g creat [facility] Comment: The ADA defines abnormalities in [...] PM EDT 03/26/2024 3:55 PM EDT Narrative [facility] - 03/27/2024 7:47 PM EDT FASTING:NO Jerald Tylerton PharmD LAB URINE AMBULATORY Carlee l Result Performing Organization Address [facility] Co de Phone Number [facility] [address] [address], [facility] [address] [address] * Hep C Antibody with Reflex HCV RNA (10/02/2023 3:10 PM EST) HEPATITIS C ANTIBODY NON-REACT RUCHI NON-REACT RUCHI [facility] Comment: HCV antibody was non-reactive. There is no laboratory evidence of HCV infection. In most cases, no further action is required. However, if recent HCV exposure is suspected, a test for HCV RNA (test code 62093) is suggested. For additional information please refer to http://education.Vocation/faq/WOO07u0 (This link is being provided for informational/ educational purposes only.) Blood Blood / Unknown 10/02/2023 3 :10 PM EST 10/02/2023 3:10 PM EST Rafi Wright MD LAB - BLOOD DRAW Edited Resu lt - Final Performing Organization Address [facility] Co de Phone Number [facility] [address] [address], [facility] [address] [address] * HIV Ag & Ab with Reflex Western Blot (10/02/2023 3:10 PM EST) HIV AG/AB, 4TH GEN NON-REAC TIVE NON-REAC TIVE [facility] Comment: HIV-1 antigen and HIV-1/HIV-2 antibodies [...] purpose. For additional information please refer to http://education.Vocation/faq/RRT174 (This link is being provided for informational/ educational purposes only.) The performance of this assay has not been clinically validated in patients less than 2 years old. Blood Blood / Unknown 10/02/2023 3 :10 PM EST 10/02/2023 3:10 PM EST us Rafi Wright MD LAB - BLOOD DRAW Final Resul t [facility] [address] [address], [facility] [address] [place] [address] from Last 3 Months or Most Recently Relevant to Health Maintenance Insurance [facility] ACO NE MEDICAID DENTAL Care Teams Forest Ranger Relationship Specialty Start Date End Date Alyson England PA-C [address] [place] [id number] PCP - General Internal Medicine 08/14/23
--- OUTSIDE RECORDS SUMMARY | 2025-08-27 06:33 | XMS_ITS | Clinical Summary ---
Author Organization [facility] Address [address] [place] [phone] Phone Care Team Providers Care Loading Unit Operator Name Role Phone Kenneth Mccrary EJ Primary Care Provider Encounters Date Type Department Care Team Description 07/04/2025 9:10 AM EDT Ancillary Procedure [facility] [address] [phone] from Last 3 Months Medical History Medical [...] Description 09/08/2025 9:30 AM EDT Ancillary Procedure [facility] 154 300 [facility] [address] [place] [address] Health Maintenance Due Date Last Done Comments Colorectal Cancer Screening: Colonoscopy 1974 Diabetes: Annual Foot Exam 02/03/1984 Diabetes: Annual Retina Eye Exam 02/03/1984 HIV Screening 12/08/2023 Social Influencers of Health [...] (2 - Td or Tdap) 10/02/2033 10/02/2023 RSV Immunization Adult Patients (1 - 1-dose 75+ series) 2049 Hepatitis C Screening Completed 10/02/2023 Hepatitis B [...] this topic Medical Devices Implanted Type Area Transformation Specialist Device Identifier Shelf Expiration Date Model / Serial / Lot Bsci-Crm [id number] Implanted:05/14 (Quantity not on file) Cardiac ICD [place] [employer]HY[employer]M MGMT [id number] / [id number] / Procedures Procedure Name Priority Date/Time Associated Diagnosis Comments CARDIAC DEVICE CHECK- REMOTE- MURJ Routine 07/04/2025 9:08 AM EDT from Last 3 Months Results * Cardiac device check - Remote- MURJ (07/04/2025 9:08 AM EDT) Date Time Interrogation Session [id number] CV DEVICE CHECK Type Interrogation Session Remote Scheduled CV DEVICE CHECK Implantable Pulse Generator Transformation Specialist BSX CV DEVICE CHECK Implantable Pulse Generator Type ICD CV DEVICE CHECK Implantable Pulse Generator Model D142 CV DEVICE CHECK Implantable Pulse Generator Serial Number [id number] CV DEVICE CHECK Implantable Pulse Generator Implant Date [id number] CV DEVICE CHECK Battery Remaining Percentage 100.00 CV DEVICE CHECK Battery Remaining Longevity 102.0 CV DEVICE CHECK Battery Status Beginning of Service CV DEVICE CHECK Capacitor Charge Time 11.100 CV DEVICE CHECK Darwin Statistic RA Percent Paced 0.00 CV DEVICE CHECK Darwin Statistic RV Percent Paced 0.00 CV DEVICE CHECK Atrial Tachy Statistic AT/AF [place] Percent 1.00 CV DEVICE CHECK Lead Channel [...] PROCEDURES Final Result from Last 3 Months Insurance MEDICAID - [place] Care Teams Loading Unit Operator Relationship Specialty Start Date End Date Kenneth Mccrary FNP [facility] [place] [address] PCP - General 06/02/23
[2025-08-27 06:54] LABS: Cannabinoid Screen Urine Not Detected (Not Detect)
[2025-08-27 06:57] LABS: ~Lactic Acid-LAB USE ONLY 1.6 mmol/L (0.5-2.0)
--- NOTE | 2025-08-27 08:09 | ED_ITS ---
HPI - Weakness General Chief complaint: Weakness Stated complaint: BODY PAIN Time Seen by Provider: 08/27/25 03:37 Source: patient, EMS, RN notes reviewed and old records reviewed Mode of arrival: EMS Limitations: altered mental status History of Present Illness ED Provider: Dr. Melisa Heredia HPI Narrative: 50-year-old male with a history of DM, CHF, CAD status post stent placement, hypertension, hyperlipidemia, cocaine abuse presenting with generalized weakness and low blood pressure. Patient is somewhat lethargic and unable to answer many questions. States ?I feel weak. I do not know when it started?. Denies recent illness including fevers or chills, cough or cold-type symptoms, chest pain, difficulty breathing, abdominal pain, nausea, vomiting, diarrhea, urinary complaints, lower extremity edema or pain. Has been taking all of his medications as prescribed. He denies illicit substance use and is unable to tell me why he is so sleepy right now. Related Data Previous Rx's ?Medication ?Instructions ?Recorded aspirin 81 mg tablet 81 mg PO DAILY #30 tabs 01/07 atorvastatin 40 mg tablet (Lipitor) 40 mg PO DAILY #30 tabs 07/15/25 carvedilol 3.125 mg tablet 3.125 mg PO BID #60 tabs clopidogrel 75 mg tablet (Plavix) 75 mg PO DAILY #30 t abs 07/15/25 dapagliflozin propanediol 10 mg 10 mg PO DAILY #30 tab s 07/15/25 tablet (Farxiga) dulaglutide 1.5 mg/0.5 mL 1.5 mg (0.5 mL) subcut QWEEK #2 mL 07/15/25 subcutaneous pen injector ([facility]) ezetimibe 10 mg tablet 10 mg PO DAILY #30 tabs 01/07 fluoxetine 10 mg capsule 10 mg PO DAILY #30 caps 01/07 gabapentin 100 mg capsule 100 mg PO BEDTIME #30 caps 0 07/15/25 glipizide 5 mg tablet 5 mg PO BID #60 tabs 5 insulin glargine 100 unit/mL (3 60 unit (0.6 mL) subcu t QPM #15 mL 07/15/25 mL) subcutaneous pen (Lantus Solostar U-100 Insulin) insulin lispro 200 unit/mL (3 mL) 1 sliding scale dose subcut 07/15/25 subcutaneous pen USEASDIRECTD #6 mL lisinopril 2.5 mg tablet 2.5 mg PO DAILY #30 tabs 01/07 metformin 500 mg tablet 500 mg PO BID #60 tabs 07/15 quetiapine 100 mg tablet (Seroquel) 100 mg PO BEDTIME #30 tabs 07/15/25 sacubitril 49 mg-valsartan 51 mg 1 tab PO BID #60 tabs 07/15/25 tablet (Entresto) valacyclovir 1 gram tablet 1,000 mg PO DAILY #30 tabs 07/15/25 Allergies Allergy/AdvReac Type Severity Reaction Status Date / Time No Known Allergies Allergy Verified 08/27/25 04:26 Review of Systems 2 Review of Systems: as per HPI, full review of systems performed and negative but for the above mentioned pertinent positives and negatives. [facility]LY [facility] Past Medical History Medical History Cardiomyopathy CAD (coronary artery disease) HLD (hyperlipidemia) HTN (hypertension) Social History Social History Unable to assess alcohol history related to: Unknown Patient Tobacco Use Status: Former Tobacco user Advance Directives: No Advance Directives Information Provided: Yes Do you have a plan to hurt others: No Plan Physical Exam 2 Exam: Exam: GENERAL: Appears intoxicated, GCS 13, eyes open to voice, slurred speech, no acute distress. SKIN: Normal skin color for ethnicity, warm, dry, no rashes noted. HEENT: Normocephalic, atraumatic, no stridor, posterior oropharynx nonerythematous, dentition intact, EOMI, pupils are pinpoint bilaterally, reactive to light. NECK: Soft, supple, no step-offs, no deformities, no lymphadenopathy. CHEST: Heart regular tachycardia, no murmurs, symmetric chest rise and fall. PULMONARY: Clear to auscultation bilaterally, diminished at the bases, no labored breathing, no wheezes/rhales/rhonchi. ABDOMINAL: Soft, nondistended, positive bowel sounds in all quadrants. : Deferred. MUSCULOSKELETAL: Normal tone, full range of motion, no deformities, no peripheral edema. NEURO: GCS 13, eyes open to voice, slightly slurred speech, CN II through XII intact, equal strength and sensation bilateral upper and lower extremities, no focal neurologic deficits. PSYCHIATRIC: Flat affect, poor eye contact. Vital Signs: Vital Signs: Last Vital Signs Temp 97.6 F 08/27/25 05:52 Pulse 68 08/27/25 05:52 Resp 12 08/27/25 05:52 BP 95/58 L 08/27/25 05:52 Pulse Ox 98 08/27/25 05:52 O2 Del Method Room Air 08/27/25 05:52 BMI result Body Mass Index 28.2 Medications Administered Discontinued Medications Generic Name Dose Route Start Last Admin Trade Name Freq PRN Reason Stop Dose Admin Sodium Chloride 1,000 mls @ 999 mls/hr 08/27/25 03:30 08/27/25 04:51 Ns IV 08/27/25 04:30 Infused .Q1H1M NEERU Infusion Sodium Chloride 1,000 mls @ 999 mls/hr 08/27/25 03:30 08/27/25 04:51 Ns IV 08/27/25 04:30 Infused .Q1H1M NEERU Infusion Medical Decision Making Medical Decision Making [facility] Narrative: Patient presents today with a chief complaint of altered mental status. Differential diagnosis for AMS is incredibly broad and includes infection, intracranial process such as hemorrhage, stroke or mass, electrolyte abnormality, hypercarbia, hypoxia, toxic encephalopathy, among many others. Broad-based workup was initiated to further evaluate the etiology of patient's symptoms based on the above exam and history. Patient presents clinically as sedative hypnotic toxidrome versus cocaine washout versus hypovolemia. He does have a history of CAD with cardiomyopathy but we will give a fluid bolus challenge to see if he responds. Patient responded appropriately to a fluid bolus. His blood pressure is chronically low around 100/69 during his previous hospitalization. Originally arrived with a blood pressure of 71/46. Improved significantly to 95/58 with a map of 71. Patient reports he feels much better. He is requesting discharge home. Plan for ambulation trial to see if you feels improved. His UDS was positive for cocaine and fentanyl. I did not give him any Narcan due to a normal respiratory rate and I felt this is more likely related to cocaine washout. He has no white blood cell count elevation, no fever or tachycardia. More likely to be hypovolemia rather than sepsis. He is not currently in DKA. He is having a slight JEFFREY with a bump in his creatinine from baseline. Patient attempted ambulation and was unable to walk with a steady gait. States he feels very weak. Given this, the above JEFFREY, hyperglycemia, and persistent hypotension, we will admit to hospitalist for further care and evaluation. Admitted in guarded condition. Differential Diagnosis Differential Diagnoses: The differential diagnosis associated with the presentation includes (as above) Admission/Observation Consideration of admission/observation: Escalation of care including admission/observation considered Lab Data MDM Lab Attestation statement: I reviewed the patient's lab results. 08/27/25 03:28 08/27/25 03:28 Labs: Lab Results 08/27/25 08/27/25 08/27/25 Range/Units 03:28 03:29 03:41 WBC 11.0 H (4.8-10.8) X10*3/uL RBC 4.95 (4.60-5.80) X10*6/uL Hgb 15.0 (14.0-18.0) g/dl Hct 43.1 (42.0-52.0) % MCV 87.1 (80.0-98.0) fL MCH 30.3 (27.0-33.0) pg MCHC 34.8 (31.0-36.0) g/dl RDW 12.5 (11.0-16.0) % Plt Count 263 (160-400) X10*3/uL MPV 10.1 (9.4-12.4) fL Immature Gran % (Auto) 0.3 (0.0-0.4) % Neut % (Auto) 72.1 (45-73) % Lymph % (Auto) 17.8 L (20-40) % [place] % (Auto) 8.7 (2-11) % Eos % (Auto) 0.6 (0-4) % Baso % (Auto) 0.5 (0-2) % Lymph # (Auto) 2.0 (1.2-4.9) X10*3/uL [place] # (Auto) 1.0 (0.1-1.2) X10*3/uL Eos # (Auto) 0.1 (0.0-0.4) X10*3/uL Baso # (Auto) 0.1 (0.0-0.2) X10*3/uL Abs Immat Gran (auto) 0.03 (0.00-0.03) X10*3/uL Absolute Neuts (auto) 7.9 (2.0-8.3) x10*3/uL Absolute Nucleated RBC 0.000 (0.0-0.012) X10*3/uL Nucleated RBC % (auto) 0.0 (0.0-0.2) /100WBC VBG pH (7.32-7.43) VBG pCO2 mmHg VBG pO2 mmHg VBG HCO3 (22-26) mmol/L VBG O2 Saturation % VBG Base Excess mmol/L Sodium 134 L (135-145) mmol/L Potassium 4.1 (3.3-5.1) mmol/L Chloride 97 (96-108) mmol/L Carbon Dioxide 22 (22-29) mmol/L Anion Gap 19 (12-20) BUN 28 H (9-16) mg/dL Creatinine 1.51 H (0.5-1.4) mg/dL Estim Creat Clear Calc 63.0 Estimated GFR 49 POC Glucose 397 H* (60-115) mg/dL Random Glucose 416 H* (60-115) mg/dL Lactic Acid 3.5 H* (0.5-2.0) mmol/L Lactic Acid F/U @ 2Hr (0.5-2.0) mmol/L Calcium 9.7 D (8.4-10.2) mg/dL Magnesium 2.2 (1.6-2.6) mg/dL Troponin I High Sens 44.6 H D (<3.5-35.0) ng/L NT-Pro-B Natriuret Pep 855.3 H (<300) pg/mL Beta-Hydroxybutyrate 0.13 (0.02-0.27) mmol/L Urine Opiates Screen (Not Detect) Ur Buprenorphine Scrn (Not Detect) ng/mL Ur Oxycodone Screen (Not Detect) ng/mL Urine Methadone Screen (Not Detect) ng/mL Urine Fentanyl Screen (Not Detect) Ur Barbiturates Screen (Not Detect) Ur Phencyclidine Scrn (Not Detect) Ur Amphetamines Screen (Not Detect) U Benzodiazepines Scrn (Not Detect) Urine Cocaine Screen (Not Detect) U Marijuana (THC) Screen (Not Detect) Ethyl Alcohol < 10 mg/dL Influenza Type A (PCR) (Negative) Influenza Type B (PCR) (Negative) RSV RNA Qual (PCR) (Negative) SARS-CoV-2 RNA (RT-PCR) (Negative) 08/27/25 08/27/25 08/27/25 Range/Units 03:47 04:44 06:35 WBC (4.8-10.8) X10*3/uL RBC (4.60-5.80) X10*6/uL Hgb (14.0-18.0) g/dl Hct (42.0-52.0) % MCV (80.0-98.0) fL MCH (27.0-33.0) pg MCHC (31.0-36.0) g/dl RDW (11.0-16.0) % Plt Count (160-400) X10*3/uL MPV (9.4-12.4) fL Immature Gran % (Auto) (0.0-0.4) % Neut % (Auto) (45-73) % Lymph % (Auto) (20-40) % [place] % (Auto) (2-11) % Eos % (Auto) (0-4) % Baso % (Auto) (0-2) % Lymph # (Auto) (1.2-4.9) X10*3/uL [place] # (Auto) (0.1-1.2) X10*3/uL Eos # (Auto) (0.0-0.4) X10*3/uL Baso # (Auto) (0.0-0.2) X10*3/uL Abs Immat Gran (auto) (0.00-0.03) X10*3/uL Absolute Neuts (auto) (2.0-8.3) x10*3/uL Absolute Nucleated RBC (0.0-0.012) X10*3/uL Nucleated RBC % (auto) (0.0-0.2) /100WBC VBG pH 7.43 (7.32-7.43) VBG pCO2 33 mmHg VBG pO2 103 mmHg VBG HCO3 22 (22-26) mmol/L VBG O2 Saturation 99.0 % VBG Base Excess -0.9 mmol/L Sodium (135-145) mmol/L Potassium (3.3-5.1) mmol/L Chloride (96-108) mmol/L Carbon Dioxide (22-29) mmol/L Anion Gap (12-20) BUN (9-16) mg/dL Creatinine (0.5-1.4) mg/dL Estim Creat Clear Calc Estimated GFR POC Glucose (60-115) mg/dL Random Glucose (60-115) mg/dL Lactic Acid (0.5-2.0) mmol/L Lactic Acid F/U @ 2Hr 1.6 (0.5-2.0) mmol/L Calcium (8.4-10.2) mg/dL Magnesium (1.6-2.6) mg/dL Troponin I High Sens (<3.5-35.0) ng/L NT-Pro-B Natriuret Pep (<300) pg/mL Beta-Hydroxybutyrate (0.02-0.27) mmol/L Urine Opiates Screen Not Detected (Not Detect) Ur Buprenorphine Scrn Not Detected (Not Detect) ng/mL Ur Oxycodone Screen Not Detected (Not Detect) ng/mL Urine Methadone Screen Not Detected (Not Detect) ng/mL Urine Fentanyl Screen POSITIVE H (Not Detect) Ur Barbiturates Screen Not Detected (Not Detect) Ur Phencyclidine Scrn Not Detected (Not Detect) Ur Amphetamines Screen Not Detected (Not Detect) U Benzodiazepines Scrn Not Detected (Not Detect) Urine Cocaine Screen POSITIVE H (Not Detect) U Marijuana (THC) Screen Not Detected (Not Detect) Ethyl Alcohol mg/dL Influenza Type A (PCR) NEGATIVE (Negative) Influenza Type B (PCR) NEGATIVE (Negative) RSV RNA Qual (PCR) NEGATIVE (Negative) SARS-CoV-2 RNA (RT-PCR) NEGATIVE (Negative) Independent Interpretation I performed an independent interpretation of an: EKG Interpretation: My independent interpretation of the ECG reveals normal sinus rhythm with rate of 79, normal axis, normal intervals, no ST elevations or depressions to suggest ischemic changes, relatively unchanged from previous on 08/09/2025. Independent Historian Clinical information obtained from an independent historian. History obtained from or confirmed by: EMS External Record Review External record reviewed: Inpatient record Chronic Conditions Patient?s care impacted by: Diabetes, Hypertension and Other (CHF, CAD, cardiomyopathy) Social Determinants Patient?s care significantly limited by Social Determinants of Health including: Alcoholism and drug addiction in family and Other Social Determinant of Health Critical Care Time Critical Care Time Critical Care Time: Yes Total Critical Care Time: 45 Attestation: CRITICAL CARE TIME: 45 minutes of critical care time was spent in direct patient care at the bedside or in the immediate area with this patient. Critical care was necessary to treat or prevent imminent or life-threatening deterioration of the following conditions hypotension due to JEFFREY, dehydration, polysubstance use. This patient is high risk for decompensation and/or . This time was spent assessing and managing the patient, interpreting labs and imaging, coordinating care with other medical providers, gathering history from either the patient, their representatives, EMS or chart review, and discussing management with admitting team. Discharge Plan Discharge Clinical Impression: JEFFREY (acute kidney injury), History of cardiomyopathy, Hypotensive episode, Acute dehydration, Cocaine use Patient Disposition: Admitted As Inpatient Print Language: Wolof
--- NOTE | 2025-08-27 08:54 | PC.NURSE ---
pt is very drowsy but easily arousable, skin appropriate for ethnicity, respirations even and unlabored, pt reports feeling weak in general, while doing orth signs when the pt stood up pt felt very dizzy and weak, pt denies pain . pt is willing to stay at the hospital for admission, aware
[2025-08-27 09:00] LABS: Troponin-I High Sensitivity 16.6 ng/L (<3.5-35.0)
--- NOTE | 2025-08-27 10:15 | PM.IMHP ---
History of Present Illness Date of Service: 08/27/25 Chief Complaint: Weakness and numness of feet This is a 50-year-old male who presented to the emergency department with complaints of generalized weakness and numbness in his feet. He reports several weeks of worsening weakness, polyuria, polydipsia, and fatigue. He denies fever, nausea, vomiting, diarrhea, or chest pain. He has a significant past medical history of hypertension, dyslipidemia, coronary artery disease status post stenting, heart failure with reduced ejection fraction, pacemaker placement, and insulin-dependent diabetes mellitus. He has not been taking his medications for several months due to loss of insurance. On arrival, his blood pressure was 71/48 mmHg. He was started on intravenous fluids, and his most recent blood pressure improved to 101/67 mmHg after receiving 2 liters of normal saline. Laboratory studies revealed a blood glucose of 416 mg/dL, lactate of 3.5 mmol/L, and creatinine of 1.5 mg/dL (baseline normal). Toxicology screen was positive for cocaine. PMH: Hyperglycemia (R73.9) Type 2 diabetes mellitus (E11.9) Coronary artery disease (I25.10) Stented coronary artery (Z95.5) Dyslipidemia (E78.5) Mood disorder (F39) Hyponatremia (E87.1) Pacemaker (Z95.0) HFrEF (heart failure with reduced ejection fraction) (I50.20) _ Review of Systems Review of Systems: Constitutional: Fatigue, generalized weakness. Cardiovascular: No chest pain, palpitations, or syncope. Respiratory: No shortness of breath or cough. Gastrointestinal: No nausea, vomiting, or diarrhea. Genitourinary: Polyuria, polydipsia. Neurological: Numbness in feet, no confusion. Yes all other systems are reviewed and are negative [facility] Medical History Cardiomyopathy CAD (coronary artery disease) HLD (hyperlipidemia) HTN (hypertension) Social History Household Members: Other Housing: Other Do you presently have visiting nurse or other home services: No Patient Tobacco Use Status: Former Tobacco user Meds Allergies Allergy/AdvReac Type Severity Reaction Status Date / Time No Known Allergies Allergy Verified 08/27/25 04:26 Active Medications: Current Medications Dextrose (Dextrose 50 % 25 Gm/50 Ml Syringe) 25 gm IVPUSH Q15M PRN; Protocol PRN Reason: per Hypoglycemia Standing Ord. Glucose (Glucose Gel 15 Gm Gel..Gram.) 15 gm PO Q15M PRN; Protocol PRN Reason: per Hypoglycemia Standing Ord. Insulin Human Lispro (Insulin Lispro 100 Unit/Ml 3 Ml Vial) 0 unit SUBCUT QIDACHS [facility]; Protocol Home Medications ?Medication ?Instructions ?Recorded ?Confirmed ?Last Taken ?Type dulaglutide 1.5 mg/0.5 mL 1.5 mg subcut SA 08/27/25 08/27/25 08/16/25 History subcutaneous pen injector (Trulicity) insulin glargine 100 unit/mL (3 60 unit subcut BEDTIME 08/27/25 08/27/25 08/26/25 History mL) subcutaneous pen (Lantus Solostar U-100 Insulin) insulin lispro 200 unit/mL (3 mL) 4 - 14 sliding scale dose subcut 08/27/25 08/27/25 08/26/25 History subcutaneous pen TID Physical Exam Vital Signs and Narrative: Vital Signs: Last Vital Signs Temp 97.6 F 08/27/25 08:27 Pulse 87 08/27/25 08:41 Resp 14 08/27/25 08:27 BP 101/67 08/27/25 09:05 Pulse Ox 99 08/27/25 08:27 O2 Del Method Room Air 08/27/25 08:27 BMI result Body Mass Index 28.2 Const: Other: General: Lethargic but easily arousable, no confusion Cardiovascular: Regular rate and rhythm, no murmurs Respiratory: Clear to auscultation Abdomen: Soft, non-tender Neurological: Generalized weakness, decreased sensation in feet, no focal deficits Results Labs 08/27/25 03:28 08/28/25 06:11 Labs: Laboratory Results - last 24 hr 08/27/25 08/27/25 08/27/25 03:28 03:29 03:41 MCV 87.1 MCH 30.3 MCHC 34.8 RDW 12.5 Plt Count 263 MPV 10.1 Immature Gran % (Auto) 0.3 Neut % (Auto) 72.1 Lymph % (Auto) 17.8 L [place] % (Auto) 8.7 Eos % (Auto) 0.6 Baso % (Auto) 0.5 Lymph # (Auto) 2.0 [place] # (Auto) 1.0 Eos # (Auto) 0.1 Baso # (Auto) 0.1 Abs Immat Gran (auto) 0.03 Absolute Neuts (auto) 7.9 Absolute Nucleated RBC 0.000 Nucleated RBC % (auto) 0.0 VBG pH VBG pCO2 VBG pO2 VBG HCO3 VBG O2 Saturation VBG Base Excess Anion Gap 19 Estim Creat Clear Calc 63.0 Estimated GFR 49 POC Glucose 397 H* Random Glucose 416 H* Lactic Acid 3.5 H* Lactic Acid F/U @ 2Hr Calcium 9.7 D Magnesium 2.2 Troponin I High Sens 44.6 H D NT-Pro-B Natriuret Pep 855.3 H Beta-Hydroxybutyrate 0.13 Urine Opiates Screen Ur Buprenorphine Scrn Ur Oxycodone Screen Urine Methadone Screen Urine Fentanyl Screen Ur Barbiturates Screen Ur Phencyclidine Scrn Ur Amphetamines Screen U Benzodiazepines Scrn Urine Cocaine Screen U Marijuana (THC) Screen Ethyl Alcohol < 10 Influenza Type A (PCR) Influenza Type B (PCR) RSV RNA Qual (PCR) SARS-CoV-2 RNA (RT-PCR) 08/27/25 08/27/25 08/27/25 03:47 04:44 06:35 MCV MCH MCHC RDW Plt Count MPV Immature Gran % (Auto) Neut % (Auto) Lymph % (Auto) [place] % (Auto) Eos % (Auto) Baso % (Auto) Lymph # (Auto) [place] # (Auto) Eos # (Auto) Baso # (Auto) Abs Immat Gran (auto) Absolute Neuts (auto) Absolute Nucleated RBC Nucleated RBC % (auto) VBG pH 7.43 VBG pCO2 33 VBG pO2 103 VBG HCO3 22 VBG O2 Saturation 99.0 VBG Base Excess -0.9 Anion Gap Estim Creat Clear Calc Estimated GFR POC Glucose Random Glucose Lactic Acid Lactic Acid F/U @ 2Hr 1.6 Calcium Magnesium Troponin I High Sens NT-Pro-B Natriuret Pep Beta-Hydroxybutyrate Urine Opiates Screen Not Detected Ur Buprenorphine Scrn Not Detected Ur Oxycodone Screen Not Detected Urine Methadone Screen Not Detected Urine Fentanyl Screen POSITIVE H Ur Barbiturates Screen Not Detected Ur Phencyclidine Scrn Not Detected Ur Amphetamines Screen Not Detected U Benzodiazepines Scrn Not Detected Urine Cocaine Screen POSITIVE H U Marijuana (THC) Screen Not Detected Ethyl Alcohol Influenza Type A (PCR) NEGATIVE Influenza Type B (PCR) NEGATIVE RSV RNA Qual (PCR) NEGATIVE SARS-CoV-2 RNA (RT-PCR) NEGATIVE 08/27/25 08:33 MCV MCH MCHC RDW Plt Count MPV Immature Gran % (Auto) Neut % (Auto) Lymph % (Auto) [place] % (Auto) Eos % (Auto) Baso % (Auto) Lymph # (Auto) [place] # (Auto) Eos # (Auto) Baso # (Auto) Abs Immat Gran (auto) Absolute Neuts (auto) Absolute Nucleated RBC Nucleated RBC % (auto) VBG pH VBG pCO2 VBG pO2 VBG HCO3 VBG O2 Saturation VBG Base Excess Anion Gap Estim Creat Clear Calc Estimated GFR POC Glucose Random Glucose Lactic Acid Lactic Acid F/U @ 2Hr Calcium Magnesium Troponin I High Sens 16.6 D NT-Pro-B Natriuret Pep Beta-Hydroxybutyrate Urine Opiates Screen Ur Buprenorphine Scrn Ur Oxycodone Screen Urine Methadone Screen Urine Fentanyl Screen Ur Barbiturates Screen Ur Phencyclidine Scrn Ur Amphetamines Screen U Benzodiazepines Scrn Urine Cocaine Screen U Marijuana (THC) Screen Ethyl Alcohol Influenza Type A (PCR) Influenza Type B (PCR) RSV RNA Qual (PCR) SARS-CoV-2 RNA (RT-PCR) Assessment and Plan (1) JEFFREY (acute kidney injury): Status: Acute (2) Acute dehydration: Status: Acute Plan This is a 50-year-old male with multiple chronic medical conditions, including diabetes and heart failure, who presented with generalized weakness, polyuria, polydipsia, and numbness in the feet. He was found to be hypotensive and hyperglycemic, with evidence of acute kidney injury and recent cocaine use. He has been noncompliant with medications due to loss of insurance. Hypotension, likely multifactorial (dehydration, no evidence of sepsis, medication noncompliance, substance use): Patient has responded to IV fluids with improvement in blood pressure. continue to monitor hemodynamics closely and reassess for ongoing fluid needs. Monitor for signs of sepsis or cardiogenic shock. Hyperglycemia, likely due to insulin noncompliance, no ketoacidosis Start Lantus 20 unit daily, SSI, diabetic diet. check A1C Monitor for diabetic complications, including DKA or HHS Acute kidney injury (creatinine 1.5, baseline normal): Likely secondary to hypoperfusion and dehydration. Monitor renal function and maintain adequate hydration. Acue Lactic acidosis, not due to sepsis rather due to tissue hypoperfusion from hypotension Generalized weakness and peripheral neuropathy: Likely multifactorial, including uncontrolled diabetes and possible electrolyte disturbances. Monitor neurological status and address underlying metabolic derangements. History of heart failure with reduced ejection fraction and coronary artery disease: No signs of acute heart failure Monitor for signs of volume overload during fluid resuscitation. 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 Monitor for cardiovascular complications. Medication noncompliance due to loss of insurance: Case manaement to assist DVT prophylaxis: Initiate DVT prophylaxis with Lovenox Code status: Full code. Indication for Admission: The patient requires inpatient admission for management of hypotension, severe hyperglycemia, acute kidney injury, and altered mental status in the setting of multiple chronic comorbidities and recent cocaine use. He requires close monitoring, intravenous therapy, insulin management, and multidisciplinary care. Quality Stroke Does the patient have a stroke diagnosis?: No VTE Prior VTE?: No VTE Risk Level:: Medical - moderate - high VTE Device Contraindication: Treatment Not Indicated VTE Drug Contraindication: N/A - Med Ordered
[2025-08-27] MEDS: Lactated Ringers 1,000 ML 150 ML IVCONT ×2 (11:02→17:53)
[2025-08-27 11:18] LABS: Glucose, Whole Blood 401 mg/dL (60-115)
[2025-08-27 11:29] LABS: Hemoglobin A1C 531.9685 umol/L; Total Hemoglobin (HGBA1C) 3808.5950 umol/L
[2025-08-27] MEDS: Insulin Glargine,Hum.rec.anlog 100 UNIT/ML 10 ML VIAL 20 UNIT SUBCUT (11:45)
[2025-08-27 12:05] LABS: Anion Gap 10 (12-20); Blood Urea Nitrogen 20 mg/dL (9-16); Calcium 8.6 mg/dL (8.4-10.2); Carbon Dioxide 26 mmol/L (22-29); Chloride 104 mmol/L (96-108); Creatinine Clr Calc Pharmacy 90.7; Estimated Glomerular Filt Rate > 60; Potassium 4.0 mmol/L (3.3-5.1); Sodium 136 mmol/L (135-145)
[2025-08-27] MEDS: Lactated Ringers 1,000 ML 999 ML IV (12:40)
[2025-08-27 12:48] LABS: Glucose, Whole Blood 224 mg/dL (60-115)
--- NOTE | 2025-08-27 13:44 | MHC.EDTECH ---
Dining services was called, requested a Diabetic tray, no known allergies, [address]. Renetta stated she will work on it but have a few before his is made. Rn aware
--- NOTE | 2025-08-27 14:17 | PHA.MEDREC ---
Addendum entered by Kulwinder Baron PharmD 08/27/25 14:36: reviewed Original Note: Pharmacy Consult ? Medication Reconciliation Pharmacy has completed the medication reconciliation. Patient is a poor historian. Patient states he doesn't Remember the names of his medications. Patient instructed me to call [facility] pharmacy to get a list of his medications. Utilized list from [facility] pharmacy. Patient was able to confirm Trulicity 1.5 mg every Monday, last dose was 08/16/25, Lantus Solostar 60 Units at bedtime, and Insulin lispro per Sliding scale TID. patient states he last had his medications yesterday.
[2025-08-27 16:47] LABS: Glucose, Whole Blood 90 mg/dL (60-115)
[2025-08-27 17:34] LABS: Glucose, Whole Blood 97 mg/dL (60-115)
[2025-08-27 21:26] LABS: Glucose, Whole Blood 231 mg/dL (60-115)
--- NOTE | 2025-08-27 21:55 | PM.EVENT ---
Event Note Date of Service: 08/27/25 Event Note: Nursing notified this policy writer typist that pt wanted to leave AMA but did not give reason why. Reviewed pt's chart, reason for admission and noted Toxicology screen positive for coacine and fentanyl. Pt is not on methadone or suboxone. Asked pt why he wanted to leave and pt's response was I just want to be home . After overall review, pt agreed to stay and exhibited no signs of withdrawal. Pt wanted more food and nursing was able to provide this. Pt has SSI coverage. COWS ordered and addicitons consulted. Time Spent With Patient Time: Total time managing care of this patient today ____ minutes.
[2025-08-28 00:02] VITALS: BP 100/64; PULSE 76; RESP 14; TEMP 36.4; O2SAT 96
[2025-08-28] MEDS: Lactated Ringers 1,000 ML 150 ML IVCONT ×2 (01:37→06:11)
[2025-08-28 03:38] VITALS: BMI 30.1
[2025-08-28 03:47] VITALS: BP 109/76; PULSE 75; RESP 18; TEMP 36.2; O2SAT 97
[2025-08-28 07:00] LABS: Glucose, Whole Blood 351 mg/dL (60-115)
[2025-08-28 07:16] VITALS: BP 110/67; PULSE 68; RESP 18; TEMP 36.9; O2SAT 97
[2025-08-28 07:37] LABS: Anion Gap 11 (12-20); Blood Urea Nitrogen 16 mg/dL (9-16); Calcium 8.2 mg/dL (8.4-10.2); Carbon Dioxide 27 mmol/L (22-29); Chloride 106 mmol/L (96-108); Creatinine Clr Calc Pharmacy 105.6; Estimated Glomerular Filt Rate > 60; Potassium 4.1 mmol/L (3.3-5.1); Sodium 140 mmol/L (135-145)
[2025-08-28 08:00] VITALS: PULSE 74
[2025-08-28] MEDS: Insulin Glargine,Hum.rec.anlog 100 UNIT/ML 10 ML VIAL 30 UNIT SUBCUT (08:02)
[2025-08-28] MEDS: 0.9 % Sodium Chloride Flush 3 ML SYRINGE IVFLUSH (08:03)
[2025-08-28] MEDS: Sacubitril/Valsartan 49/51 1 TAB TABLET PO (09:14)
--- NOTE | 2025-08-28 10:39 | HO.ADDICTCON ---
History of Present Illness Date of Service: 08/28/2025 Chief Complaint: acute hypotension, JEFFREY, hyperglycemia Reason for Consult: substance use Sources of Information: patient interviewed and chart reviewed HPI Narrative: Patient is a 50 year old male with medical history that includes HF, CAD, pacemaker, VINCENT, and DM. Presented to [facility] reporting generalized weakness. Admitted with JEFFREY, hyperglycemia and hypotension. Consult requested secondary to ongoing substance use. Patient seen in room 458. He is awake, alert, initially guarded, but overall engaged in interview. He reports smoking cocaine a couple of days per week--after he gets paid from work. He states that he only buys $40-$50 worth, and does not use beyond that. Initially patient presented as very surprised when t/w inquired about fentanyl use, stating he does not use opioids, and was not pleased in was in UDS. Of note, UDS from 08/10/25 was negative for opiates. He denies any withdrawal sx. or history of withdrawal sx. Reports that he is not from this area, and has been here for a little over a year. He is engaged with [facility], and is residing at [address], through their programming. 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 Discussed chronic health issues and how ongoing substance use is impacting these conditions. He states that his goal is to stop completely, and voiced interest in trialling medications for StUD. Labs reviewed -no recent HIV or hepatitis screens available Medical Evaluation Reviewed: Yes Review of Systems Constitutional: Reports as per HPI Diagnostics Vital Signs (24Hr): Vital Signs - 24 hr 08/27/25 11:06 08/27/25 12:37 08/27/25 13:39 Temperature Pulse Rate 73 70 67 Respiratory Rate 18 18 Blood Pressure 93/57 L 97/58 L 98/63 Pulse Oximetry 96 99 Oxygen Delivery Method Room Air Room Air 08/27/25 16:39 08/27/25 17:55 08/27/25 20:50 Temperature 98.4 F 98.1 F Pulse Rate 68 72 74 Respiratory Rate 18 18 13 Blood Pressure 93/57 L 94/68 107/69 Pulse Oximetry 98 97 98 Oxygen Delivery Method Room Air Room Air Room Air 08/27/25 22:04 08/28/25 00:02 08/28/25 03:47 Temperature 97.7 F 97.6 F 97.2 F Pulse Rate 78 76 75 Respiratory Rate 13 14 18 Blood Pressure 102/64 100/64 109/76 Pulse Oximetry 98 96 97 Oxygen Delivery Method Room Air Room Air Room Air 08/28/25 07:16 Temperature 98.5 F Pulse Rate 68 Respiratory Rate 18 Blood Pressure 110/67 Pulse Oximetry 97 Oxygen Delivery Method Room Air BMI result Body Mass Index 30.1 Labs 08/27/25 03:28 08/28/25 06:11 Labs: Laboratory Results - last 48 hr 08/27/25 08/27/25 08/27/25 03:28 03:29 03:41 WBC 11.0 H RBC 4.95 Hgb 15.0 Hct 43.1 MCV 87.1 MCH 30.3 MCHC 34.8 RDW 12.5 Plt Count 263 MPV 10.1 Immature Gran % (Auto) 0.3 Neut % (Auto) 72.1 Lymph % (Auto) 17.8 L [place] % (Auto) 8.7 Eos % (Auto) 0.6 Baso % (Auto) 0.5 Lymph # (Auto) 2.0 [place] # (Auto) 1.0 Eos # (Auto) 0.1 Baso # (Auto) 0.1 Abs Immat Gran (auto) 0.03 Absolute Neuts (auto) 7.9 Absolute Nucleated RBC 0.000 Nucleated RBC % (auto) 0.0 Hold Purple Top VBG pH VBG pCO2 VBG pO2 VBG HCO3 VBG O2 Saturation VBG Base Excess Sodium 134 L Potassium 4.1 Chloride 97 Carbon Dioxide 22 Anion Gap 19 BUN 28 H Creatinine 1.51 H Estim Creat Clear Calc 63.0 Estimated GFR 49 POC Glucose 397 H* Random Glucose 416 H* Estimat Average Glucose TNP Hemoglobin A1c % > 14.0 H Lactic Acid 3.5 H* Lactic Acid F/U @ 2Hr Calcium 9.7 D Magnesium 2.2 Troponin I High Sens 44.6 H D NT-Pro-B Natriuret Pep 855.3 H Beta-Hydroxybutyrate 0.13 Urine Opiates Screen Ur Buprenorphine Scrn Ur Oxycodone Screen Urine Methadone Screen Urine Fentanyl Screen Ur Barbiturates Screen Ur Phencyclidine Scrn Ur Amphetamines Screen U Benzodiazepines Scrn Urine Cocaine Screen U Marijuana (THC) Screen Ethyl Alcohol < 10 Influenza Type A (PCR) Influenza Type B (PCR) RSV RNA Qual (PCR) SARS-CoV-2 RNA (RT-PCR) 08/27/25 08/27/25 08/27/25 03:47 04:44 06:35 WBC RBC Hgb Hct MCV MCH MCHC RDW Plt Count MPV Immature Gran % (Auto) Neut % (Auto) Lymph % (Auto) [place] % (Auto) Eos % (Auto) Baso % (Auto) Lymph # (Auto) [place] # (Auto) Eos # (Auto) Baso # (Auto) Abs Immat Gran (auto) Absolute Neuts (auto) Absolute Nucleated RBC Nucleated RBC % (auto) Hold Purple Top VBG pH 7.43 VBG pCO2 33 VBG pO2 103 VBG HCO3 22 VBG O2 Saturation 99.0 VBG Base Excess -0.9 Sodium Potassium Chloride Carbon Dioxide Anion Gap BUN Creatinine Estim Creat Clear Calc Estimated GFR POC Glucose Random Glucose Estimat Average Glucose Hemoglobin A1c % Lactic Acid Lactic Acid F/U @ 2Hr 1.6 Calcium Magnesium Troponin I High Sens NT-Pro-B Natriuret Pep Beta-Hydroxybutyrate Urine Opiates Screen Not Detected Ur Buprenorphine Scrn Not Detected Ur Oxycodone Screen Not Detected Urine Methadone Screen Not Detected Urine Fentanyl Screen POSITIVE H Ur Barbiturates Screen Not Detected Ur Phencyclidine Scrn Not Detected Ur Amphetamines Screen Not Detected U Benzodiazepines Scrn Not Detected Urine Cocaine Screen POSITIVE H U Marijuana (THC) Screen Not Detected Ethyl Alcohol Influenza Type A (PCR) NEGATIVE Influenza Type B (PCR) NEGATIVE RSV RNA Qual (PCR) NEGATIVE SARS-CoV-2 RNA (RT-PCR) NEGATIVE 08/27/25 08/27/25 08/27/25 08:33 11:14 11:21 WBC RBC Hgb Hct MCV MCH MCHC RDW Plt Count MPV Immature Gran % (Auto) Neut % (Auto) Lymph % (Auto) [place] % (Auto) Eos % (Auto) Baso % (Auto) Lymph # (Auto) [place] # (Auto) Eos # (Auto) Baso # (Auto) Abs Immat Gran (auto) Absolute Neuts (auto) Absolute Nucleated RBC Nucleated RBC % (auto) Hold Purple Top VBG pH VBG pCO2 VBG pO2 VBG HCO3 VBG O2 Saturation VBG Base Excess Sodium 136 Potassium 4.0 Chloride 104 Carbon Dioxide 26 Anion Gap 10 L BUN 20 H Creatinine 1.05 Estim Creat Clear Calc 90.7 Estimated GFR > 60 POC Glucose 401 H* Random Glucose 418 H* Estimat Average Glucose Hemoglobin A1c % Lactic Acid Lactic Acid F/U @ 2Hr Calcium 8.6 D Magnesium Troponin I High Sens 16.6 D NT-Pro-B Natriuret Pep Beta-Hydroxybutyrate Urine Opiates Screen Ur Buprenorphine Scrn Ur Oxycodone Screen Urine Methadone Screen Urine Fentanyl Screen Ur Barbiturates Screen Ur Phencyclidine Scrn Ur Amphetamines Screen U Benzodiazepines Scrn Urine Cocaine Screen U Marijuana (THC) Screen Ethyl Alcohol Influenza Type A (PCR) Influenza Type B (PCR) RSV RNA Qual (PCR) SARS-CoV-2 RNA (RT-PCR) 08/27/25 08/27/25 08/27/25 12:44 16:44 17:29 WBC RBC Hgb Hct MCV MCH MCHC RDW Plt Count MPV Immature Gran % (Auto) Neut % (Auto) Lymph % (Auto) [place] % (Auto) Eos % (Auto) Baso % (Auto) Lymph # (Auto) [place] # (Auto) Eos # (Auto) Baso # (Auto) Abs Immat Gran (auto) Absolute Neuts (auto) Absolute Nucleated RBC Nucleated RBC % (auto) Hold Purple Top VBG pH VBG pCO2 VBG pO2 VBG HCO3 VBG O2 Saturation VBG Base Excess Sodium Potassium Chloride Carbon Dioxide Anion Gap BUN Creatinine Estim Creat Clear Calc Estimated GFR POC Glucose 224 H 90 97 Random Glucose Estimat Average Glucose Hemoglobin A1c % Lactic Acid Lactic Acid F/U @ 2Hr Calcium Magnesium Troponin I High Sens NT-Pro-B Natriuret Pep Beta-Hydroxybutyrate Urine Opiates Screen Ur Buprenorphine Scrn Ur Oxycodone Screen Urine Methadone Screen Urine Fentanyl Screen Ur Barbiturates Screen Ur Phencyclidine Scrn Ur Amphetamines Screen U Benzodiazepines Scrn Urine Cocaine Screen U Marijuana (THC) Screen Ethyl Alcohol Influenza Type A (PCR) Influenza Type B (PCR) RSV RNA Qual (PCR) SARS-CoV-2 RNA (RT-PCR) 08/27/25 08/28/25 08/28/25 21:21 06:11 06:56 WBC RBC Hgb Hct MCV MCH MCHC RDW Plt Count MPV Immature Gran % (Auto) Neut % (Auto) Lymph % (Auto) [place] % (Auto) Eos % (Auto) Baso % (Auto) Lymph # (Auto) [place] # (Auto) Eos # (Auto) Baso # (Auto) Abs Immat Gran (auto) Absolute Neuts (auto) Absolute Nucleated RBC Nucleated RBC % (auto) Hold Purple Top SEE NOTE VBG pH VBG pCO2 VBG pO2 VBG HCO3 VBG O2 Saturation VBG Base Excess Sodium 140 Potassium 4.1 Chloride 106 Carbon Dioxide 27 Anion Gap 11 L BUN 16 Creatinine 0.93 Estim Creat Clear Calc 105.6 Estimated GFR > 60 POC Glucose 231 H 351 H* Random Glucose 409 H* Estimat Average Glucose Hemoglobin A1c % Lactic Acid Lactic Acid F/U @ 2Hr Calcium 8.2 L Magnesium Troponin I High Sens NT-Pro-B Natriuret Pep Beta-Hydroxybutyrate Urine Opiates Screen Ur Buprenorphine Scrn Ur Oxycodone Screen Urine Methadone Screen Urine Fentanyl Screen Ur Barbiturates Screen Ur Phencyclidine Scrn Ur Amphetamines Screen U Benzodiazepines Scrn Urine Cocaine Screen U Marijuana (THC) Screen Ethyl Alcohol Influenza Type A (PCR) Influenza Type B (PCR) RSV RNA Qual (PCR) SARS-CoV-2 RNA (RT-PCR) Mental Status Exam Mental Status Exam Level of Consciousness: Awake and Alert Patient Behavior: Appropriate, Guarded and Cooperative Affect Description: Apprehensive Speech Pattern: Clear Thought Process: Intact Thought Content: positive for Intact Judgement: Good Medications Medications Current Medications Acetaminophen (Acetaminophen 325 Mg Tablet) 650 mg PO Q6H PRN PRN Reason: Pain, Mild 1-3,fever,headache Al Hydroxide/Mg Hydroxide (Magnesium Hydrox/Alum Hydrox 30 Ml Oral.Susp) 30 ml PO Q4H PRN PRN Reason: Heartburn Aspirin (Aspirin Enteric Coated 81 Mg Tablet.) 81 mg PO DAILY [facility] Atorvastatin Calcium (Atorvastatin Calcium 40 Mg Tablet) 40 mg PO DAILY [facility] Last Admin: 08/28/25 09:15 Dose: 40 mg Calcium Carbonate (Calcium Carbonate 750 Mg Tab.Chew) 750 mg PO Q4H PRN PRN Reason: Heartburn Carvedilol (Carvedilol 3.125 Mg Tablet) 3.125 mg PO BID [facility]; Protocol Last Admin: 08/28/25 09:14 Dose: 3.125 mg Clopidogrel Bisulfate (Clopidogrel Bisulfate 75 Mg Tablet) 75 mg PO DAILY [facility] Last Admin: 08/28/25 09:15 Dose: 75 mg Dextrose (Dextrose 50 % 25 Gm/50 Ml Syringe) 25 gm IVPUSH Q15M PRN; Protocol PRN Reason: per Hypoglycemia Standing Ord. Ezetimibe (Ezetimibe 10 Mg Tablet) 10 mg PO DAILY [facility] Last Admin: 08/28/25 09:15 Dose: 10 mg Empagliflozin (Empagliflozin 10 Mg Tablet) 10 mg PO DAILY [facility] Enoxaparin Sodium (Enoxaparin Sodium 40 Mg/0.4 Ml Syringe) 40 mg SUBCUT Q24H [facility] Last Admin: 08/28/25 09:15 Dose: 40 mg Fluoxetine HCl (Fluoxetine Hcl 10 Mg Capsule) 10 mg PO DAILY [facility] Last Admin: 08/28/25 09:15 Dose: 10 mg Gabapentin (Gabapentin 100 Mg Capsule) 100 mg PO BEDTIME [facility] Last Admin: 08/28/25 09:14 Dose: 100 mg Glipizide (Glipizide 5 Mg Tablet) 5 mg PO BID [facility] Last Admin: 08/28/25 09:14 Dose: 5 mg Glucose (Glucose Gel 15 Gm Gel..Gram.) 15 gm PO Q15M PRN; Protocol PRN Reason: per Hypoglycemia Standing Ord. Lactated Ringer's (Lr) 1,000 mls @ 150 mls/hr IVCONT .Q6H40M [facility] Last Admin: 08/28/25 06:11 Dose: 150 mls/hr Insulin Glargine (Insulin Glargine,Hum.Rec.Anlog 100 Unit/Ml 10 Ml Vial) 30 unit SUBCUT DAILY [facility] Last Admin: 08/28/25 08:02 Dose: 30 unit Insulin Human Lispro (Insulin Lispro 100 Unit/Ml 3 Ml Vial) 0 unit SUBCUT QIDACHS [facility]; Protocol Last Admin: 08/28/25 08:02 Dose: 10 unit Magnesium Hydroxide (Milk Of Magnesia 30 Ml Oral.Susp) 30 ml PO DAILY PRN PRN Reason: Constipation Melatonin (Melatonin 3 Mg Tablet) 6 mg PO BEDTIME PRN PRN Reason: Insomnia Metformin HCl (Metformin Hcl 500 Mg Tablet) 500 mg PO BID [facility] Last Admin: 08/28/25 09:15 Dose: 500 mg Ondansetron HCl (Ondansetron Hcl 4 Mg/2 Ml Vial) 4 mg IVPUSH Q8H PRN PRN Reason: Nausea and Vomiting Polyethylene Glycol (Polyethylene Glycol 3350 17 Gm Powd.Pack) 17 gm PO DAILY PRN PRN Reason: Constipation Quetiapine Fumarate (Quetiapine Fumarate 100 Mg Tablet) 100 mg PO BEDTIME [facility] Sacubitril/Valsartan (Sacubitril/Valsartan 49/51 1 Tab Tablet) 1 tab PO BID [facility]; Protocol Last Admin: 08/28/25 09:14 Dose: 1 tab Sodium Chloride (0.9 % Sodium Chloride Flush 3 Ml Syringe) 3 ml IVFLUSH QSHIFT [facility] Last Admin: 08/28/25 08:03 Dose: 3 ml Valacyclovir HCl (Valacyclovir Hcl 1,000 Mg Tablet) 1,000 mg PO DAILY [facility] Last Admin: 08/28/25 09:15 Dose: 1,000 mg Allergies Allergies Allergy/AdvReac Type Severity Reaction Status Date / Time No Known Allergies Allergy Verified 08/27/25 04:26 Assessment & Plan Assessment & Plan (1) Cocaine use: Status: Acute Code(s): F14.90 - Cocaine use, unspecified, uncomplicated Assessment and Plan: patient open to trial of toirimate. 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 Total time managing care of this patient today __35__ minutes. PMFSH Past Medical History Medical History Cardiomyopathy CAD (coronary artery disease) HLD (hyperlipidemia) HTN (hypertension) Social History Social History Household Members: Other Housing: Other Do you presently have visiting nurse or other home services: No Patient Tobacco Use Status: Former Tobacco user service: No
--- NOTE | 2025-08-28 10:54 | HO.PM.IMPN ---
Subjective Subjective Date of Service: 08/28/25 Interval History: f/u on JEFFREY, diabetes for hyperglycemia, non-compliance with meds Physical Exam Vital Signs: Vital Signs: Last Vital Signs Temp 98.5 F 08/28/25 07:16 Pulse 68 08/28/25 07:16 Resp 18 08/28/25 07:16 BP 110/67 08/28/25 07:16 Pulse Ox 97 08/28/25 07:16 O2 Del Method Room Air 08/28/25 07:16 BMI result Body Mass Index 30.1 Const: Other: General: Lethargic but easily arousable, no confusion Cardiovascular: Regular rate and rhythm, no murmurs Respiratory: Clear to auscultation Abdomen: Soft, non-tender Neurological: Generalized weakness, decreased sensation in feet, no focal deficits Objective Data Active Medications Acetaminophen (Acetaminophen 325 Mg Tablet) 650 mg PO Q6H PRN PRN Reason: Pain, Mild 1-3,fever,headache Al Hydroxide/Mg Hydroxide (Magnesium Hydrox/Alum Hydrox 30 Ml Oral.Susp) 30 ml PO Q4H PRN PRN Reason: Heartburn Aspirin (Aspirin Enteric Coated 81 Mg Tablet.Dr) 81 mg PO DAILY [facility] Atorvastatin Calcium (Atorvastatin Calcium 40 Mg Tablet) 40 mg PO DAILY [facility] Last Admin: 08/28/25 09:15 Dose: 40 mg Documented By: LENNY Calcium Carbonate (Calcium Carbonate 750 Mg Tab.Chew) 750 mg PO Q4H PRN PRN Reason: Heartburn Carvedilol (Carvedilol 3.125 Mg Tablet) 3.125 mg PO BID [facility]; Protocol Last Admin: 08/28/25 09:14 Dose: 3.125 mg Documented By: LENNY Clopidogrel Bisulfate (Clopidogrel Bisulfate 75 Mg Tablet) 75 mg PO DAILY [facility] Last Admin: 08/28/25 09:15 Dose: 75 mg Documented By: LENNY Dextrose (Dextrose 50 % 25 Gm/50 Ml Syringe) 25 gm IVPUSH Q15M PRN; Protocol PRN Reason: per Hypoglycemia Standing Ord. Ezetimibe (Ezetimibe 10 Mg Tablet) 10 mg PO DAILY [facility] Last Admin: 08/28/25 09:15 Dose: 10 mg Documented By: LENNY Empagliflozin (Empagliflozin 10 Mg Tablet) 10 mg PO DAILY [facility] Enoxaparin Sodium (Enoxaparin Sodium 40 Mg/0.4 Ml Syringe) 40 mg SUBCUT Q24H [facility] Last Admin: 08/28/25 09:15 Dose: 40 mg Documented By: LENNY Fluoxetine HCl (Fluoxetine Hcl 10 Mg Capsule) 10 mg PO DAILY [facility] Last Admin: 08/28/25 09:15 Dose: 10 mg Documented By: LENNY Gabapentin (Gabapentin 100 Mg Capsule) 100 mg PO BEDTIME [facility] Last Admin: 08/28/25 09:14 Dose: 100 mg Documented By: LENNY Glipizide (Glipizide 5 Mg Tablet) 5 mg PO BID [facility] Last Admin: 08/28/25 09:14 Dose: 5 mg Documented By: LENNY Glucose (Glucose Gel 15 Gm Gel..Gram.) 15 gm PO Q15M PRN; Protocol PRN Reason: per Hypoglycemia Standing Ord. Lactated Ringer's (Lr) 1,000 mls @ 150 mls/hr IVCONT .Q6H40M [facility] Last Admin: 08/28/25 06:11 Dose: 150 mls/hr Documented By: KIN Insulin Glargine (Insulin Glargine,Hum.Rec.Anlog 100 Unit/Ml 10 Ml Vial) 30 unit SUBCUT DAILY [facility] Last Admin: 08/28/25 08:02 Dose: 30 unit Documented By: LENNY Insulin Human Lispro (Insulin Lispro 100 Unit/Ml 3 Ml Vial) 0 unit SUBCUT QIDACHS [facility]; Protocol Last Admin: 08/28/25 08:02 Dose: 10 unit Documented By: LENNY Magnesium Hydroxide (Milk Of Magnesia 30 Ml Oral.Susp) 30 ml PO DAILY PRN PRN Reason: Constipation Melatonin (Melatonin 3 Mg Tablet) 6 mg PO BEDTIME PRN PRN Reason: Insomnia Metformin HCl (Metformin Hcl 500 Mg Tablet) 500 mg PO BID [facility] Last Admin: 08/28/25 09:15 Dose: 500 mg Documented By: LENNY Ondansetron HCl (Ondansetron Hcl 4 Mg/2 Ml Vial) 4 mg IVPUSH Q8H PRN PRN Reason: Nausea and Vomiting Polyethylene Glycol (Polyethylene Glycol 3350 17 Gm Powd.Pack) 17 gm PO DAILY PRN PRN Reason: Constipation Quetiapine Fumarate (Quetiapine Fumarate 100 Mg Tablet) 100 mg PO BEDTIME [facility] Sacubitril/Valsartan (Sacubitril/Valsartan 49/51 1 Tab Tablet) 1 tab PO BID [facility]; Protocol Last Admin: 08/28/25 09:14 Dose: 1 tab Documented By: LENNY Sodium Chloride (0.9 % Sodium Chloride Flush 3 Ml Syringe) 3 ml IVFLUSH QSHIFT [facility] Last Admin: 08/28/25 08:03 Dose: 3 ml Documented By: LENNY Valacyclovir HCl (Valacyclovir Hcl 1,000 Mg Tablet) 1,000 mg PO DAILY [facility] Last Admin: 08/28/25 09:15 Dose: 1,000 mg Documented By: LENNY Labs 08/27/25 03:28 08/28/25 06:11 Labs: Laboratory Results - last 24 hr 08/27/25 08/27/25 08/27/25 03:28 11:14 11:21 Hold Purple Top Anion Gap 10 L Estim Creat Clear Calc 90.7 Estimated GFR > 60 POC Glucose 401 H* Random Glucose 418 H* Estimat Average Glucose TNP Hemoglobin A1c % > 14.0 H Calcium 8.6 D 08/27/25 08/27/25 08/27/25 12:44 16:44 17:29 Hold Purple Top Anion Gap Estim Creat Clear Calc Estimated GFR POC Glucose 224 H 90 97 Random Glucose Estimat Average Glucose Hemoglobin A1c % Calcium 08/27/25 08/28/25 08/28/25 21:21 06:11 06:56 Hold Purple Top SEE NOTE Anion Gap 11 L Estim Creat Clear Calc 105.6 Estimated GFR > 60 POC Glucose 231 H 351 H* Random Glucose 409 H* Estimat Average Glucose Hemoglobin A1c % Calcium 8.2 L Microbiology Microbiology Results: Microbiology 08/27/25 03:41 Blood Culture - Preliminary Blood - Venous No growth after 24 hours. 08/27/25 03:41 Blood Culture - Preliminary Blood - Venous No growth after 24 hours. Assessment and Plan (1) Cocaine use: Status: Acute (2) Hypotensive episode: Status: Acute (3) History of cardiomyopathy: Status: Acute (4) JEFFREY (acute kidney injury): Status: Acute (5) Acute dehydration: Status: Acute Plan This is a 50-year-old male with multiple chronic medical conditions, including diabetes and heart failure, who presented with generalized weakness, polyuria, polydipsia, and numbness in the feet. He was found to be hypotensive and hyperglycemic, with evidence of acute kidney injury and recent cocaine use. He has been noncompliant with medications due to loss of insurance. Hypotension, likely multifactorial (dehydration, no evidence of sepsis, medication noncompliance, substance use) resolved with IVF continue to monitor Diabetes with HypERglycemia, due to non-compliance, hasn't taken med in 3 months Restarted Lantus 20 usually 60 at night but hasn't taken in 3 months, increasing to 30 this morning and if BS are still high additional 20 at night resume metformin and glipizide, jardiance, Trulicity to be restarted after discharge. Monitor glucose Acute kidney injury (creatinine 1.5, baseline normal), Likely secondary to hypoperfusion and dehydration. Monitor renal function and maintain adequate hydration. Acue Lactic acidosis, not due to sepsis rather due to tissue hypoperfusion from hypotension Generalized weakness and peripheral neuropathy: Likely multifactorial, including uncontrolled diabetes and possible electrolyte disturbances. Monitor neurological status and address underlying metabolic derangements. History of heart failure with reduced ejection fraction and coronary artery disease: No signs of acute heart failure Monitor for signs of volume overload during fluid resuscitation. 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 Monitor for cardiovascular complications. Medication noncompliance due to loss of insurance: Case manaement to assist DVT prophylaxis: Initiate DVT prophylaxis with Lovenox Code status: Full code. Indication for Admission: The patient requires inpatient admission for management of hypotension, severe hyperglycemia, acute kidney injury, and altered mental status in the setting of multiple chronic comorbidities and recent cocaine use. He requires close monitoring, intravenous therapy, insulin management, and multidisciplinary care. Quality Stroke Does the patient have a stroke diagnosis?: No VTE Prior VTE?: No VTE Risk Level:: Medical - moderate - high VTE Device Contraindication: Treatment Not Indicated VTE Drug Contraindication: N/A - Med Ordered
[2025-08-28 11:00] LABS: Glucose, Whole Blood 201 mg/dL (60-115)
[2025-08-28 11:13] VITALS: BP 109/67; PULSE 74; RESP 18; TEMP 37.2; O2SAT 98
--- NOTE | 2025-08-28 12:03 | MHC.CM.PN ---
Addendum entered by Katelyn Marroquin RN 08/28/25 12:57: PT WOULD LIKE ANY PRESCRIPTIONS FILLED AT [facility]. Original Note: EMR REVIEWED, PT W/HYPOTENSION/JEFFREY/HYPERGLYCEMIA, CM MET W/PT WHO REPORTS HE LIVES IN [facility] [place], IS FULLY INDEP W/CARE, DENIES USE OF DME AND HAS OUTPT MENTAL HEALTH SERVICES W/[facility]. PT'S GOAL FOR DC IS HOME TODAY. PT REPORTS HE IS WAITING ON RECOVERY NURSE TO PROVIDE RESOURCES AND AN APPT W/CCC. PT REPORTS HIS PCP IS JOAO KAM AT [facility], PT EDUCATED ON AND DECLINES TO COMPLETE A HCP. DP: HOME SELF CARE, PT WILL NEED ASSISTANCE W/TRANSPORTATION.
[2025-08-28 15:50] LABS: Glucose, Whole Blood 141 mg/dL (60-115)
[2025-08-28 15:57] VITALS: BP 114/75; PULSE 75; RESP 18; TEMP 36.7; O2SAT 97
--- NOTE | 2025-08-28 16:02 | PM.DS ---
DS: Providers Provider Date of Service: 08/28/25 Date of admission: 08/27/25 10:28 Date of discharge: 08/28/25 Primary care physician: Unknown Physician Consults: 08/28/25 09:00 Addiction Medicine Provider Routine Consulting Provider: Addiction Covering Reason for consultation: toxicology screen positive cocaine kim, pt wanted to leave AMA but stay Has provider been notified: No 08/28/25 13:59 Consult to Comprehensive Care Routine Consulting Provider: [facility] DS: Diagnosis Discharge Diagnosis (1) Cocaine use: Status: Acute DS: Summary Hospital Course Hospital Course: admission hpi Chief Complaint: Weakness and numness of feet This is a 50-year-old male who presented to the emergency department with complaints of generalized weakness and numbness in his feet. He reports several weeks of worsening weakness, polyuria, polydipsia, and fatigue. He denies fever, nausea, vomiting, diarrhea, or chest pain. He has a significant past medical history of hypertension, dyslipidemia, coronary artery disease status post stenting, heart failure with reduced ejection fraction, pacemaker placement, and insulin-dependent diabetes mellitus. He has not been taking his medications for several months due to loss of insurance. On arrival, his blood pressure was 71/48 mmHg. He was started on intravenous fluids, and his most recent blood pressure improved to 101/67 mmHg after receiving 2 liters of normal saline. Laboratory studies revealed a blood glucose of 416 mg/dL, lactate of 3.5 mmol/L, and creatinine of 1.5 mg/dL (baseline normal). Toxicology screen was positive for cocaine. Hospital course: This is a 50-year-old male with multiple chronic medical conditions, including diabetes and heart failure, who presented with generalized weakness, polyuria, polydipsia, and numbness in the feet. He was found to be hypotensive and hyperglycemic, with evidence of acute kidney injury and recent cocaine use. He has been noncompliant with medications due to loss of insurance. Hypotension, likely multifactorial (dehydration, no evidence of sepsis, medication noncompliance, substance use) resolved with IVF Diabetes with HypERglycemia, due to non-compliance, hasn't taken med in 3 months Restarted Lantus 20 usually 60 at night but hasn't taken in 3 months, increasing to 30 before disharge resume dmetformin and glipizide, jardiance, Trulicity to be restarted after discharge. Acute kidney injury (creatinine 1.5, baseline normal), Likely secondary to hypoperfusion and dehydration. Resolved with IVF Acue Lactic acidosis, not due to sepsis rather due to tissue hypoperfusion from hypotension Generalized weakness and peripheral neuropathy: Likely multifactorial, including uncontrolled diabetes and possible electrolyte disturbances and dehydration. 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 Monitor for cardiovascular complications. Time Attestation Discharge Coordination Time (in mins): 40 Quality: Safe Use of Opioids Does Pt have an Active Cancer Diagnosis on the Problem List?: No Quality: Stroke Does the patient have a stroke diagnosis?: No Physical Exam Vital Signs: Vital Signs: Last Vital Signs Temp 98.1 F 08/28/25 15:57 Pulse 75 08/28/25 15:57 Resp 18 08/28/25 15:57 BP 114/75 08/28/25 15:57 Pulse Ox 97 08/28/25 15:57 O2 Del Method Room Air 08/28/25 15:57 BMI result Body Mass Index 30.1 DS: Data Data Completed and Pending Labs on day of discharge: Laboratory Results - last 24 hr 08/27/25 08/27/25 08/27/25 16:44 17:29 21:21 Hold Purple Top Sodium Potassium Chloride Carbon Dioxide Anion Gap BUN Creatinine Estim Creat Clear Calc Estimated GFR POC Glucose 90 97 231 H Random Glucose Calcium 08/28/25 08/28/25 08/28/25 06:11 06:56 10:56 Hold Purple Top SEE NOTE Sodium 140 Potassium 4.1 Chloride 106 Carbon Dioxide 27 Anion Gap 11 L BUN 16 Creatinine 0.93 Estim Creat Clear Calc 105.6 Estimated GFR > 60 POC Glucose 351 H* 201 H Random Glucose 409 H* Calcium 8.2 L 08/28/25 15:19 Hold Purple Top Sodium Potassium Chloride Carbon Dioxide Anion Gap BUN Creatinine Estim Creat Clear Calc Estimated GFR POC Glucose 141 H Random Glucose Calcium Preliminary micro results at discharge 08/27/25 03:41 Blood Culture - Preliminary Blood - Venous No growth after 24 hours. 08/27/25 03:41 Blood Culture - Preliminary Blood - Venous No growth after 24 hours. Discharge Plan Discharge Anticipated Discharge Date/Time: 08/28/25 16:00 Patient Disposition: Home, Self-Care Discharge Diagnosis: Hypotension, dehydration, JEFFREY, hyperglycemnia Referrals: [facility] [Provider Group] - 09/01/25 1:45 pm Referral Note: This is an intake appt for medication for simulant/opioid use. Please bring ID and insurance card if available. If you are unable to keep this appointment, please call the office to reschedule Alyson England PA-C [Physician Remotely Piloted Vehicle Controller, Internal Medicine] - 1 Week Discharge Medications: Continued atorvastatin [Lipitor] 40 mg tablet 40 mg PO DAILY Qty: 30 0RF metformin 500 mg tablet 500 mg PO BID Qty: 60 0RF valacyclovir 1 gram tablet 1,000 mg PO DAILY Qty: 30 0RF clopidogrel [Plavix] 75 mg tablet 75 mg PO DAILY Qty: 30 0RF quetiapine [Seroquel] 100 mg tablet 100 mg PO BEDTIME Qty: 30 0RF carvedilol 3.125 mg tablet 3.125 mg PO BID Qty: 60 0RF Rx Instructions: must administer with a meal/food fluoxetine 10 mg capsule 10 mg PO DAILY Qty: 30 0RF aspirin 81 mg tablet 81 mg PO DAILY Qty: 30 0RF gabapentin 100 mg capsule 100 mg PO BEDTIME Qty: 30 0RF lisinopril 2.5 mg tablet 2.5 mg PO DAILY Qty: 30 0RF glipizide 5 mg tablet 5 mg PO BID Qty: 60 0RF ezetimibe 10 mg tablet 10 mg PO DAILY Qty: 30 0RF dapagliflozin propanediol [Farxiga] 10 mg tablet 10 mg PO DAILY Qty: 30 0RF sacubitril-valsartan [Entresto] 49-51 mg tablet 1 tab PO BID Qty: 60 0RF insulin glargine [Lantus Solostar U-100 Insulin] 100 unit/mL (3 mL) insulin pen 60 unit subcut BEDTIME Trulicity 1.5 mg/0.5 mL pen injector 1.5 mg subcut SA insulin lispro 200 unit/mL (3 mL) insulin pen 4 - 14 sliding scale dose subcut TID Protocol: Insulin Correction Scale Less than or equal to 110 ---- Give (units): 0 111 to 150 Give (units): 0 151 to 200 Give (units): 2 201 to 250 Give (units): 4 251 to 300 Give (units): 6 301 to 350 Give (units): 8 Greater than 350 Give (units): 10 Call MD if Blood Glucose > : 350 Rx Instructions: inject 4 to 14 units three times a day before meals sliding scale Discharge Orders: Discharge Order (Routine); Ordered 08/28/25 Ordered By: Lorenzo Downey Diet: Advance to usual diet Activity on Discharge: As tolerated Stand Alone Forms: Patient Portal Discharge page, Work/School Release Print Language: French Care Plan Goals: recovery from hypotension, dehydration, renal failure Health Concerns: Hypotension, dehdyration, renal failure and high blood sugar Plan of Treatment: Start taking all your medication as before, follow up with your Doctor in a week, call for appointment Assessment: see above
== END 2025-08-28 17:15 | disposition home or self-care (01) | DRG 774 ==
LOC: HO.ED 08:56 → HO.EDOVER 10:28 → HO.IMC 08-28 01:04
PROVIDERS: Admitting Provider Internal Medicine; Emergency Provider Emergency Medicine; PCP Physician Assistant; Visit Provider Internal Medicine
DX: F14.90 Cocaine use, unspecified, uncomplicated (principal); E87.21 Acute metabolic acidosis; N17.9 Acute kidney failure, unspecified; I11.0 Hypertensive heart disease with heart failure; I95.9 Hypotension, unspecified; I50.22 Chronic systolic (congestive) heart failure; E86.0 Dehydration; I25.10 Atherosclerotic heart disease of native coronary artery without angina pectoris; E11.65 Type 2 diabetes mellitus with hyperglycemia; Z20.822 Contact with and (suspected) exposure to COVID-19; Z95.5 Presence of coronary angioplasty implant and graft; Z95.0 Presence of cardiac pacemaker; Z87.891 Personal history of nicotine dependence; T38.3X6A Underdosing of insulin and oral hypoglycemic [antidiabetic] drugs, initial encounter; Z91.120 Patient's intentional underdosing of medication regimen due to financial hardship; Z79.4 Long term (current) use of insulin; Z79.02 Long term (current) use of antithrombotics/antiplatelets; Z79.84 Long term (current) use of oral hypoglycemic drugs; Z79.85 Long-term (current) use of injectable non-insulin antidiabetic drugs; Z79.899 Other long term (current) drug therapy
CPT/HCPCS: 36415; 80048; 80307; 82010; 82803; 82947; 83036; 83605; 83735; 83880; 84484; 85025; 87040; 87637; 93005; 99285; J1650; J7120; S9485

== ENCOUNTER → 2025-08-27 03:46 | Outpatient (BNV) | payer MEDICAID, SELFPAY | PROVIDERS: Admitting Provider Internal Medicine; Emergency Provider Emergency Medicine; Visit Provider Internal Medicine Cardiovascular Disease | DX: I25.2 Old myocardial infarction (principal) | CPT/HCPCS: 93010 ==

== ENCOUNTER → 2025-08-27 10:28 | Outpatient (BNV) | payer MEDICAID, SELFPAY | PROVIDERS: Admitting Provider Internal Medicine; Emergency Provider Emergency Medicine; Visit Provider Nurse Practitioner Family | DX: F14.90 Cocaine use, unspecified, uncomplicated (principal) | CPT/HCPCS: 99223; 99232; 99239; 99499 ==

== ENCOUNTER → 2025-08-27 10:28 | Outpatient (BNV) | payer OTHER, SELFPAY | PROVIDERS: Admitting Provider Internal Medicine; Emergency Provider Emergency Medicine; Visit Provider Nurse Practitioner Psychiatric/Mental Health | DX: F14.90 Cocaine use, unspecified, uncomplicated (principal) | CPT/HCPCS: 99232 ==